=== PATIENT | female | born 1945 | race Caucasian/White ===

== ENCOUNTER → 2017-02-10 | Outpatient (CLI) | payer OTHER ==
[2016-12-18 09:06] VITALS: BP 164/69
[~2017-02-10] MED LIST: ALBU2.5V5 NEB; ASPI-482 PO; ASPI-630 PO; DABI150C PO; DEXT15DR5 EACHEYE; DILT180C29 PO; DILT240C66 PO; DOXY100T PO; FLUT12HF2 IH; FURO20TA3 PO; LEVO500T8 PO; LISI10TA2 PO; NAPR500T8 PO; OMEP20CA9 PO; OMEP20TA63 PO; PRED-220 PO; PRED20TA PO; SIMV20TA PO; oxygen
--- NOTE | 2017-02-10 08:28 | KCIC ---
Indication: Postmenopausal. The bone mineral density of the lumbar spine from L1 to L4 is 1.021 with a T score of -0.2. The bone mineral density of the left hip is 0.876 with a T score of -0.5. IMPRESSION: Normal bone mineral density of the lumbar spine and left hip. Electronically signed by: Yony Wright MD (02/10/2017 8:25 AM) [id number]
--- NOTE | 2017-02-10 08:56 | KCIC ---
Indication: Epigastric pain. Study is significantly limited due to patient body habitus. The pancreas and IVC were very poorly visualized. The liver does show diffuse increased echogenicity consistent with fatty infiltration. No discrete liver mass is identified. No definite gallstones are identified. No significant wall thickening or pericholecystic fluid is seen. No bile duct dilatation is identified. The right kidney is unremarkable. No ascites is detected. IMPRESSION: Limited study. There is fatty infiltration of the liver. No other significant abnormality is detected. Electronically signed by: Yony Wright MD (02/10/2017 8:52 AM) [id number]
== END | disposition home or self-care (01) ==
LOC: KCIC DEXA 07:29
PROVIDERS: ATTEND Family Medicine
DX: K76.0 Fatty (change of) liver, not elsewhere classified (principal); Z78.0 Asymptomatic menopausal state
CPT/HCPCS: 76705; 77080

== ENCOUNTER 2017-06-30 05:59 | Observation (INO) | payer OTHER ==
[2017-06-30] MEDS: IV RINGERS,LACTATED 1000ML 1,000 ML IV ×4 (06:43→12:25)
[2017-06-30] MEDS ORDERED: fentaNYL PF VIAL 100 MCG/2 ML VIAL IV ×8 (07:00→14:00)
[2017-06-30] MEDS ORDERED: PROCHLORPERAZINE 10 MG/2 ML VIAL. IV ×4 (07:00→14:00)
[2017-06-30] MEDS ORDERED: ONDANSETRON PF 4 MG/2 ML VIAL. IV ×2 (07:00)
[2017-06-30] MEDS ORDERED: BUPIVACAINE-EPI 0.25%-1:200000 50 ML VIAL. ×2 (07:11)
[2017-06-30] MEDS: VANCOMYCIN 1GM IVPB FOR OMNI 250 ML IV ×2 (07:13)
[2017-06-30] MEDS ORDERED: ONDANSETRON PF 4 MG/2 ML VIAL. ×2 (07:23)
[2017-06-30] MEDS ORDERED: PROPOFOL 20 ML IV ×2 (07:23)
[2017-06-30] MEDS ORDERED: fentaNYL PF VIAL 100 MCG/2 ML VIAL ×2 (07:23)
[2017-06-30] MEDS ORDERED: MIDAZOLAM HCL/PF 2 MG/2 ML VIAL. ×2 (07:23)
[2017-06-30] MEDS ORDERED: FAMOTIDINE 20 MG/2 ML VIAL ×2 (07:23)
[2017-06-30] MEDS ORDERED: SUCCINYLCHOLINE 200 MG/10 ML VIAL. ×2 (07:24)
[2017-06-30] MEDS: ALBUTEROL SULFATE 2.5 MG/3 ML NEBU. NEB ×2 (07:27)
[2017-06-30] MEDS ORDERED: HYDROCORTISONE SOD SUCC/PF 100 MG/2 ML VIAL. ×2 (07:43)
[2017-06-30] MEDS ORDERED: SEVOFLURANE 31 TO 60 MINUTES. IH ×2 (08:31)
[2017-06-30] MEDS: MORPHINE SULFATE 2 MG/ML DISP.SYRIN. IV ×6 (09:10→10:07)
[2017-06-30] MEDS ORDERED: DEXTROSE 50% 25 GM / 50ML DISP.SYRIN. IV ×2 (14:00)
[2017-06-30] MEDS ORDERED: diphenhydrAMINE 50 MG/ML VIAL IV ×2 (14:00)
[2017-06-30] MEDS ORDERED: CALCIUM CARBONATE 500 MG TAB.CHEW PO ×2 (14:00)
[2017-06-30] MEDS ORDERED: oxyCODONE/APAP 7.5/325 1 TAB TABLET PO ×2 (14:00)
[2017-06-30] MEDS ORDERED: MORPHINE SULFATE 10 MG/ML VIAL. IV ×2 (14:00)
[2017-06-30] MEDS ORDERED: ZOLPIDEM 5 MG TABLET. PO ×2 (14:00)
[2017-06-30] MEDS ORDERED: MORPHINE SULFATE 4 MG/ML DISP.SYRIN. IV ×4 (14:00)
[2017-06-30] MEDS ORDERED: oxyCODONE/APAP 5/325 1 TAB TABLET PO ×2 (14:00)
[2017-06-30] MEDS ORDERED: HYDROcodone/APAP 10/325 1 TAB TABLET PO ×2 (14:00)
[2017-06-30] MEDS ORDERED: MORPHINE SULFATE 2 MG/ML DISP.SYRIN. IV ×2 (14:00)
[2017-06-30] MEDS ORDERED: traMADol 50 MG TABLET PO ×2 (14:00)
[2017-06-30] MEDS ORDERED: 0.9 % SODIUM CHLORIDE 10 ML DISP.SYRIN. IV ×2 (14:00)
[2017-06-30] MEDS: traMADol 50 MG TABLET PO ×4 (16:38→20:47)
[2017-06-30] MEDS: KETOROLAC TROMETHAMINE 10 MG TABLET PO ×2 (18:00)
[2017-06-30] MEDS: MAGNESIUM HYDROXIDE 2,400 MG/30 ML ORAL.SUSP. PO ×2 (20:47)
[2017-06-30] MEDS: IV DEXTROSE 5 %-0.45 % NACL 1,000 ML IV ×4 (20:49→23:46)
[2017-07-01] MEDS: HYDROcodone/APAP 7.5/325MG 1 TAB TABLET PO ×2 (00:50)
[2017-07-01] MEDS: KETOROLAC TROMETHAMINE 10 MG TABLET PO ×4 (00:50→06:21)
[2017-07-01] MEDS: SENNOSIDES/DOCUSATE 8.6/50MG TABLET. PO ×2 (08:04)
[2017-07-01] MEDS ORDERED: BISACODYL 10 MG SUPP.RECT. PR ×2 (16:00)
== END 2017-07-01 11:05 | disposition home or self-care (01) ==
LOC: SURG 05:59 → 4 SOUTHWST 12:50
DX: S83.241A Other tear of medial meniscus, current injury, right knee, initial encounter (principal); M22.41 Chondromalacia patellae, right knee; I10 Essential (primary) hypertension; E78.5 Hyperlipidemia, unspecified; J44.9 Chronic obstructive pulmonary disease, unspecified; I48.91 Unspecified atrial fibrillation; G45.9 Transient cerebral ischemic attack, unspecified; W18.30XA Fall on same level, unspecified, initial encounter; Z87.891 Personal history of nicotine dependence; Y92.000 Kitchen of unspecified non-institutional (private) residence as the place of occurrence of the external cause; Y93.89 Activity, other specified; Y99.8 Other external cause status
CPT/HCPCS: 29880; 94640; 96374; 97116-GP; 97162-GP; 97165-GO; 97530-GP; G0378; G0379; G8978-CJ-GP; G8979-CJ-GP; G8980-CJ-GP; J0330; J1720; J2250; J2270; J2405; J2704; J3010; J7613; S0028

== ENCOUNTER → 2017-08-27 | Outpatient (CLI) | payer OTHER | END | disposition home or self-care (01) | LOC: ECHO 10:33 | DX: I27.20 Pulmonary hypertension, unspecified (principal); E66.9 Obesity, unspecified; R06.01 Orthopnea; R60.0 Localized edema | CPT/HCPCS: 93306 ==

== ENCOUNTER → 2017-12-16 | Outpatient (CLI) | payer OTHER | END | disposition home or self-care (01) | LOC: MRI 12:25 | DX: Z12.31 Encounter for screening mammogram for malignant neoplasm of breast (principal); M48.061 Spinal stenosis, lumbar region without neurogenic claudication; M51.36 Other intervertebral disc degeneration, lumbar region; R53.1 Weakness | CPT/HCPCS: 72148; 77067 ==

== ENCOUNTER → 2017-12-28 | Outpatient (CLI) | payer OTHER | END | disposition home or self-care (01) | LOC: MAMMO 10:50 | DX: R92.8 Other abnormal and inconclusive findings on diagnostic imaging of breast (principal) | CPT/HCPCS: 76641; 77065; G0279 ==

== ENCOUNTER → 2018-01-07 | Outpatient (CLI) | payer OTHER ==
[2017-11-05 11:00] VITALS: BP 136/86
[~2018-01-07] MED LIST changes: +APIX5TAB PO; +ASPI325T8 PO; +ASPI81TA50 PO; +CETI10TA22 PO; +DILT180C64 PO; +DIPHENHYDRAMINE SQ PRN; +DRON400T PO; +FLUT9.9S NS; +HYDR-965 PO; +LACT1CAP8 PO; +LEVO750T5 PO; +MULT-121 PO; +MULT1TAB52 PO; +NAPR-514 PO; +OMEP40CA5 PO; +PROAIR HFA8.5 GM INH; +TOTAL VOLUME SQ PRN; +tylenol arthritis PO
--- NOTE | 2018-01-12 16:09 | PATHOLOGY ---
[facility] Accession Number: [id number] . 01 Material submitted: . LT BREAST TISSUE . 01 Clinical history: . Left breast mass . 02 Diagnosis: Breast tissue, left breast mass needle biopsies: - Fibrocystic changes, focal, with the following components: - Stromal fibrosis. - Duct ectasia. - Cystic change. - Apocrine metaplasia. - Medial arterial calcification, focal. . (JPM:zo; 01/12/2018) QMS/01/12/2018 . 02 Comment: The needle biopsies of the left breast mass primarily reveal fibroadipose tissue showing focal recent hemorrhage. There are a few small foci of fibrocystic change. There is no evidence of malignancy. Correlate with clinical and radiographic findings. (JPM:zo;01/12/2018) . 02 Electronically signed: . Shree Alegria MD, Pathologist NPI- [id number] . 01 Gross description: . The specimen is received in formalin, labeled "Tarah Gregorio, left breast". Received are multiple needle cores of yellow-santana fibrofatty tissue measuring 2.5 x 2.4 x 0.3 cm in aggregate dimensions. The specimen is filtered and entirely submitted in cassettes A1 through A3. The cold ischemic time is 5 minutes. The total formalin fixation time is 29 hours and 40 minutes. (CAA; 01/08/2018) QAC/QAC . 02 Pathologist provided ICD-10: N60.12, N60.32, N60.42, N60.82 . 02 CPT . 340706 Performed at: [facility] [address], [place], [place] [id number] MD Kurt Muller MD Phone: [phone] Performed at: 02 [facility] [address] [place], [place] [id number] MD Shree Alegria MD Phone: [phone]
--- NOTE | 2018-01-18 11:32 | RAD ---
Ultrasound-guided left breast biopsy, 01/07/2018: History: Suspicious breast nodule Previous studies demonstrated a suspicious nodule in the 11:00 periareolar region. Under local anesthesia, aseptic conditions and sonographic guidance the SnipdC biopsy instrument was passed into the posterior aspect of this nodule via a lateral approach. Multiple 12-gauge vacuum-assisted core samples were obtained and sent to pathology for evaluation. A biopsy marker was deposited at the biopsy site. The biopsy instrument was then removed and hemostasis obtained. A moderate-sized hematoma developed at the biopsy site. Two-view postprocedural digital mammograms were obtained to document position of the biopsy marker. It lies along the the anterolateral lateral margin of the hematoma. The calcifications present within the biopsied nodule on the prebiopsy mammograms are not evident on the postbiopsy images, although the hematoma does partially obscure this region. Following stabilization of the hematoma the patient left the department in good condition. Note: The subsequent pathology report indicated fibrocystic change without evidence of malignancy. Follow-up left mammography in 4-6 months is suggested to confirm that the partially calcified lesion was adequately sampled.
--- NOTE | 2018-01-18 13:06 | RAD ---
Ultrasound-guided left breast biopsy, 01/07/2018: History: Suspicious breast nodule Previous studies demonstrated a suspicious nodule in the 11:00 periareolar region. Under local anesthesia, aseptic conditions and sonographic guidance the General AssemblyC biopsy instrument was passed into the posterior aspect of this nodule via a lateral approach. Multiple 12-gauge vacuum-assisted core samples were obtained and sent to pathology for evaluation. A biopsy marker was deposited at the biopsy site. The biopsy instrument was then removed and hemostasis obtained. A moderate-sized hematoma developed at the biopsy site. Two-view postprocedural digital mammograms were obtained to document position of the biopsy marker. It lies along the the anterolateral lateral margin of the hematoma. The calcifications present within the biopsied nodule on the prebiopsy mammograms are not evident on the postbiopsy images, although the hematoma does partially obscure this region. Following stabilization of the hematoma the patient left the department in good condition. Note: The subsequent pathology report indicated fibrocystic change without evidence of malignancy. Follow-up left mammography in 4-6 months is suggested to confirm that the partially calcified lesion was adequately sampled. LIZETTE
== END | disposition home or self-care (01) ==
LOC: US 12:18
PROVIDERS: ATTEND Family Medicine
DX: N60.12 Diffuse cystic mastopathy of left breast (principal); N60.42 Mammary duct ectasia of left breast; E78.00 Pure hypercholesterolemia, unspecified; I48.91 Unspecified atrial fibrillation; I10 Essential (primary) hypertension; J44.9 Chronic obstructive pulmonary disease, unspecified; K21.9 Gastro-esophageal reflux disease without esophagitis; F41.9 Anxiety disorder, unspecified; F17.210 Nicotine dependence, cigarettes, uncomplicated; Z90.710 Acquired absence of both cervix and uterus; Z98.42 Cataract extraction status, left eye; Z98.41 Cataract extraction status, right eye; Z86.73 Personal history of transient ischemic attack (TIA), and cerebral infarction without residual deficits; Z98.51 Tubal ligation status; Z87.39 Personal history of other diseases of the musculoskeletal system and connective tissue
CPT/HCPCS: 19085; 76942; 77065; 88305; C1713

== ENCOUNTER → 2018-01-27 | Outpatient (CLI) | payer OTHER ==
[2017-11-05 11:00] VITALS: BP 136/86
[~2018-01-27] MED LIST changes: -DIPHENHYDRAMINE SQ PRN; +POTA10TA12 PO; -TOTAL VOLUME SQ PRN
--- NOTE | 2018-01-27 21:59 | PAIN ---
DATE OF SERVICE: 01/27/2018 INITIAL CONSULTATION FOR PAIN CLINIC CHIEF COMPLAINT: Low back and right greater than left lower extremity pain. HISTORY OF PRESENT ILLNESS: This is a 72-year-old female who presents with history of pain in the low back, right lower extremity, status post a fall. She fell in her kitchen about 7 months ago, landed flat on her back and her hips, a little more on the right, but feels that she went straight down flat on her back with some significant pain in the low back, which has been not improving over time. The patient reports it radiates into her posterior gluteus, posterior thigh, lateral thigh, anterior right thigh, right medial knee, right lower leg and into the calf on her right leg as well in the anterior and posterior aspect. The patient reports it is a constant, sharp, stabbing, shooting, cramping, radiating, worse with activity, standing, walking, changing positions. She has had significant increase in fatigability with her right leg compared to the left with some pain in the left leg as well, mostly in the gluteus and anterior thigh on the left. The patient reports that she has been doing some stretching exercises. She belongs to the [facility] and she goes there 3 times a week and is still going despite the pain. She is unable to do as many exercises as she would like to, but she is using the pool and doing some therapy with that on her own and with some water aerobics classes at the [facility], again 3 times a week and is still doing this. The patient is doing stretching at home as well. The patient reports it awakens her from sleep about 2-3 times at night, does not affect her bowel or bladder control, but does affect her ability to walk, especially with the right leg with pain radiating into the leg causing some significant fatigability with walking. The patient did have MRI scan showing some significant stenosis at the L4-L5 space with combined moderate to severe central spinal canal stenosis, moderate ligamentum hypertrophy bilaterally with moderate generalized disk bulge, L5-S1 shows moderate generalized disk bulge eccentric to the right with mild right neural foraminal stenosis as well. The patient reports a disability rating from 0-10, 10 being the worst, is a 6 with family and home responsibilities, recreation, social activity, sexual behavior, occupation, self-care and life support activities. The patient is taking naproxen as well as Tylenol Arthritis formula and ibuprofen, all of which help, but only by about 25%. The patient has no loss of motor function, but again significant fatigability, especially with the right leg with walking or standing, better with sitting or lying down, but again awakening her from sleep at night. PAST MEDICAL HISTORY: Significant for atrial fibrillation; hypertension; COPD, on home oxygen; hearing loss; cataracts; dizziness; arthritis; TIA x 2. PREVIOUS SURGERIES: Include cataract extraction bilaterally in 2010 and hysterectomy in 1999. CURRENT MEDICATIONS: Include probiotics, multivitamins, albuterol inhaler, omeprazole, Lasix, potassium, and fluticasone spray nasal. FAMILY HISTORY: Significant for hypertension, kidney disease and cancer. SOCIAL HISTORY: The patient does not drink alcohol, does not smoke, quit many years ago, is , lives with her , has one child living at home and lives locally in [place], [place]. Reports, she is currently retired, but stays very active on her own, especially going to the [employer]. REVIEW OF SYSTEMS: The patient's review of systems is positive for those items mentioned in history of present illness. All systems reviewed and otherwise negative. It is complete, full and well documented on the patient's chart. PHYSICAL EXAMINATION: VITAL SIGNS: The patient's blood pressure is 178/84, pulse 61, respirations 18, temperature 98.7 degrees Fahrenheit, height is 5 feet, weight is 236 pounds. GENERAL: The patient is awake, alert, oriented, appropriate, very pleasant demeanor. HEENT: Head shows normocephalic, atraumatic. Extraocular movements are intact and symmetrical. Oral cavity: Mucous membranes are moist and pink. Dentition is intact. NECK: Shows anterior throat supple without palpable lymphadenopathy noted. Swallow reflex is symmetrical. CHEST: Shows normal with inspection. Breath sounds are clear to auscultation bilaterally. HEART: Shows S1, S2 clear. No murmurs auscultated. ABDOMEN: Soft, nontender, nondistended. No palpable organomegaly is noted. No rebound or guarding demonstrated. BACK: Shows spine grossly in the midline. Slightly exaggerated thoracic kyphosis, some minor flattening of lumbar lordotic curvature. Lumbar paraspinous muscle shows symmetrical on inspection, on palpation shows some mild tenderness, but only diffusely without radiation, no atrophy or hypertrophy and this is throughout the upper, middle and lower distribution of the paraspinous muscles bilaterally. The patient shows no tenderness over the spinous processes, sacrum or sacroiliac regions. EXTREMITIES: The patient's lower extremities show deep tendon reflexes at 1+ in the patellar and tendo calcaneus tendons and are equal. Motor exam is strong with approximately 4 on a scale of 5, but symmetrical dorsiflexion, extension, quadriceps and hamstring flexion. Peripheral pulses are 1+ posterior tibia. No peripheral edema is noted. No clubbing or cyanosis. Lower extremities are warm and dry to touch, equal in color and appearance. The patient's straight leg raise is very mildly positive on the right at about 45 degrees, but decreased quickly with knee flexion. The left side is negative. Gaenslen's and Logan's maneuvers are negative bilaterally. The patient is able to stand, has difficulty trying to stand on her toes as she loses balance putting all of her weight on her right foot. She is walking with a slight shuffling gait, appears to favor the right lower extremity very slightly, but not using any assistive devices such as canes or walkers to ambulate. SKIN: Shows warm and dry, good turgor. No sores, rashes, or bruises. IMPRESSION: 1. This is a 72-year-old female with approximately 7-month history of increasing pain in the low back, bilateral lower extremities, worse on the right than the left with radicular pattern in the L4 and L5 dermatomal distribution on the right, status post water aerobics as well as stretching and strengthening exercises at the [facility] 3 times weekly without significant improvement. 2. MRI scan of lumbar spine as noted. 3. Chronic obstructive pulmonary disease. 4. Hypertension. 5. Atrial fibrillation. 6. Arthritis. PLAN: Options were discussed with the patient including conservative medical management, continued physical therapies, interventional techniques and she would like to pursue interventional techniques. We discussed a lumbar epidural steroid injection using descriptions as well as anatomical models to describe the procedure. The patient will wait for preauthorization with her insurance provider and once this is approved, we will have her return for lumbar epidural steroid injection at that time. The patient will continue with her exercises in the meantime and water aerobics as she is doing 3 times a week at the [facility] and we will have her return once preauthorization is obtained and we will plan on lumbar epidural steroid injection at that time. TRACE JONES MD DR: TIM/lucille JOB#: [id number] / [id number] CHESTER Ashley MD
== END | disposition home or self-care (01) ==
LOC: PNCL 10:40
PROVIDERS: ATTEND Anesthesiology
DX: I11.0 Hypertensive heart disease with heart failure (principal); I50.32 Chronic diastolic (congestive) heart failure; J44.9 Chronic obstructive pulmonary disease, unspecified; M19.90 Unspecified osteoarthritis, unspecified site; M79.605 Pain in left leg; M54.5 Low back pain; I48.91 Unspecified atrial fibrillation; E11.9 Type 2 diabetes mellitus without complications; E78.00 Pure hypercholesterolemia, unspecified; K21.9 Gastro-esophageal reflux disease without esophagitis; Z87.891 Personal history of nicotine dependence; Z99.81 Dependence on supplemental oxygen
CPT/HCPCS: G0463

== ENCOUNTER → 2018-02-11 | Outpatient (CLI) | payer OTHER ==
[2017-11-05 11:00] VITALS: BP 136/86
[~2018-02-11] MED LIST changes: +IOHEXOL 180 MG/ML 10 ML VIAL. ONE; +methylPREDNISolone ACETATE 40 MG/ML VIAL. ONE; +methylPREDNISolone ACETATE 80 MG/ML VIAL. ONE
--- NOTE | 2018-02-11 13:22 | PAIN ---
DATE OF SERVICE: 02/11/2018 DIAGNOSES: Lumbar radiculopathy with lumbar spinal stenosis, lumbar degenerative disk disease. HISTORY OF PRESENT ILLNESS: The patient is a 72-year-old female who returns for followup status post initial evaluation and preauthorization. She returns today wishing to proceed, still has pain in the low back and into the right greater than left lower extremity. The patient reports no new motor or sensory deficits. She rates her pain as a 7 on a scale of 10 at its worst, 6 on average and a 5 at its least; the patient reports it is a 6 today. The patient reports it as aching, stabbing, pain being more constant in the low back and lower extremities as previously. The patient reports it awakens her from sleep, but about every 6 hours. Otherwise, she can reposition and get back to sleep fairly well. The patient reports no new motor or sensory deficits, no new bowel or bladder incontinence or other complaints. PHYSICAL EXAMINATION: VITAL SIGNS: The patient's blood pressure 186/107, pulse is 77, respirations 18, temperature 98.6 degrees Fahrenheit. Height 5 feet, weight is 236 pounds. GENERAL: The patient is awake, alert, oriented, appropriate, very pleasant demeanor. HEENT: Head is normocephalic, atraumatic. Extraocular movements are intact and symmetrical. Oral cavity, mucous membranes are moist and pink. Dentition is intact. NECK: Shows anterior throat supple without palpable lymphadenopathy noted. Swallow reflex is symmetrical. CHEST: Shows normal with inspection. Breath sounds are clear to auscultation bilaterally. HEART: Shows S1, S2 clear. No murmurs auscultated. ABDOMEN: Soft, nontender, nondistended. No palpable organomegaly noted. No rebound or guarding demonstrated. BACK: Shows spine grossly in the midline, normal appearing thoracic kyphosis, some minor flattening of lumbar lordotic curvature. Lumbar paraspinous muscles show symmetrical on inspection, on palpation there is some moderate tenderness in the lower lumbar distribution, but only diffusely without radiation. The patient has good rotational motion both laterally as well as extension and flexion of lumbar spine without difficulty. No tenderness over the sacrum or sacroiliac regions. EXTREMITIES: Lower extremities show deep tendon reflexes 1+ in the patellar and tendo calcaneus tendons are equal. Motor exam is 5/5 with dorsiflexion and extension equal. Peripheral pulses are 1+ posterior tibia. No peripheral edema is noted. Options were discussed with the patient. The patient's old chart was reviewed as her current medication regimen updated. Current review of systems updated today as well. We will proceed with a lumbar epidural steroid injection today with fluoroscopic guidance. Risks were again discussed including, but not limited to bleeding, infection, possibility of epidural hematoma, subsequent neurologic compromise, dural puncture headaches, spinal cord and/or nerve damage, side effects of steroid medication and poor results regarding pain control. The patient understands and wished to proceed. The patient will return to clinic in approximately 2 weeks for followup, was counseled on return appointment, activity level, and side effects to be aware of. DIAGNOSES: Lumbar radiculopathy with lumbar degenerative disk disease, lumbar spinal stenosis. PROCEDURE: Lumbar epidural steroid injection, translaminar approach at L4-L5 level using C-arm fluoroscopic guidance under sterile prep and drape using local anesthetic. MEDICATION INJECTED: A total of 120 mg Depo-Medrol plus 10 mL of preservative-free normal saline and 2 mL of Isovue for contrast. CONDITION AT DISCHARGE: Stable. The patient tolerated the procedure well, had no complications. TRACE JONES MD DR: TIM/lucille JOB#: [id number] / [id number]
== END | disposition home or self-care (01) ==
LOC: PNCL 09:00
PROVIDERS: ATTEND Anesthesiology
DX: M51.16 Intervertebral disc disorders with radiculopathy, lumbar region (principal); M48.061 Spinal stenosis, lumbar region without neurogenic claudication; Z88.0 Allergy status to penicillin; Z88.2 Allergy status to sulfonamides; Z88.4 Allergy status to anesthetic agent; Z88.8 Allergy status to other drugs, medicaments and biological substances
CPT/HCPCS: 62323; J1030; J1040; Q9965

== ENCOUNTER → 2018-03-10 | Outpatient (CLI) | payer OTHER ==
[2017-11-05 11:00] VITALS: BP 136/86
[~2018-03-10] MED LIST changes: -IOHEXOL 180 MG/ML 10 ML VIAL. ONE; -methylPREDNISolone ACETATE 40 MG/ML VIAL. ONE; -methylPREDNISolone ACETATE 80 MG/ML VIAL. ONE
--- NOTE | 2018-03-10 18:10 | PAIN ---
DATE OF SERVICE: 03/10/2018 PROGRESS NOTE FOR PAIN CLINIC DIAGNOSES: Lumbar radiculopathy with lumbar degenerative disk disease, lumbar spinal stenosis. HISTORY OF PRESENT ILLNESS: The patient is a 72-year-old female who returns for followup status post lumbar epidural steroid injection x 1. The patient reports about 75% improvement after the first injection, doing quite well with significant decrease in pain with activities, household activity, walking greater distances, sleeping better at night. The patient reports she is increasing her household activities as well for about the first 3 weeks or so following the injection. The patient reports now the pain is beginning to return in the low back, mainly in the right side greater than the left; in the right lower extremity, mostly in the posterior lateral thigh, lateral anterior thigh, medial thigh, medial lower leg when it is radiating into the right lower extremity, some in the posterior gluteus and thigh on the left side as well, but much worse on the right. The patient reports it is an 8 on a scale of 10 at its worst, 6 on average, 5 at its least and is a 6 today. The patient reports it is aching, sharp, shooting, tingling, on and off in intensity. The patient reports she has recently moved to a new home and has put a lot of stress on her back as well as emotional stress too. The patient reports no new motor or sensory deficits, no new bowel or bladder incontinence or other complaints. She did fairly well and is quite pleased with the progress, the pain beginning to return. No new motor or sensory deficits, no bowel or bladder incontinence. PHYSICAL EXAMINATION: VITAL SIGNS: The patient's blood pressure 120/76, pulse 77, respirations 16, temperature 98.9 degrees Fahrenheit, weight is 239 pounds. GENERAL: The patient is awake, alert, oriented, appropriate, very pleasant demeanor. HEENT: Head is normocephalic, atraumatic. Extraocular movements intact and symmetrical. Oral cavity: Mucous membranes moist and pink. Dentition is intact. NECK: Shows anterior throat supple without palpable lymphadenopathy noted. Swallow reflex symmetrical. CHEST: Shows normal with inspection. Breath sounds clear to auscultation bilaterally. HEART: Shows S1, S2 clear. No murmurs auscultated. ABDOMEN: Obese, soft, nontender, nondistended. No palpable organomegaly is noted. No rebound or guarding demonstrated. BACK: Shows spine grossly in the midline. Normal appearing thoracic kyphosis, slightly exaggerated and lumbar lordotic curvature slightly flattened. Lumbar paraspinous muscle shows symmetrical on inspection, on palpation shows some mild to moderate tenderness in the low lumbar distribution only, but without radiation. No tenderness over the sacrum or sacroiliac regions or over the spinous processes. The patient has good rotational motion of lumbar spine, both laterally as well as extension and flexion without significant difficulty. EXTREMITIES: The patient's lower extremities show deep tendon reflexes at 1+ in the patellar and tendo calcaneus tendons. Motor exam is strong with 5/5 dorsiflexion, extension, quadriceps and hamstring flexion. Peripheral pulses are 1+ posterior tibial. No peripheral edema is noted bilaterally. The patient's straight leg raise noted to be mildly positive on the right about 45 degrees, decreased with knee flexion, left side is negative. Gaenslen's and Logan's maneuvers are negative bilaterally. Options were discussed with the patient. The patient's old chart was reviewed as her current medication regimen updated. Current review of systems updated today as well. We will preauthorize the patient for a second lumbar epidural steroid injection. She did very well with the first now with pain returning in L4-L5 dermatomal distribution on the right lower extremity, primarily again 75% improved for about 3 weeks after the first injection. The patient was encouraged to continue stretching and strengthening exercises that she has been doing. Also, walking daily if possible and to avoid lifting heavy items. She has been moving some furniture around her home. The patient understands and agrees and will follow up in approximately 2 weeks. We will plan on second lumbar epidural steroid injection at that time. TRACE JONES MD DR: TIM/lucille JOB#: [id number] / [id number]
== END | disposition home or self-care (01) ==
LOC: PNCL 09:51
PROVIDERS: ATTEND Anesthesiology
DX: M51.16 Intervertebral disc disorders with radiculopathy, lumbar region (principal); M48.061 Spinal stenosis, lumbar region without neurogenic claudication
CPT/HCPCS: G0463

== ENCOUNTER → 2018-03-24 | Outpatient (CLI) | payer OTHER ==
[2017-11-05 11:00] VITALS: BP 136/86
[~2018-03-24] MED LIST changes: +IOHEXOL 180 MG/ML 10 ML VIAL. ONE; +LIDOCAINE 1% PF 2 ML VIAL. ONE; +methylPREDNISolone ACETATE 40 MG/ML VIAL. ONE; +methylPREDNISolone ACETATE 80 MG/ML VIAL. ONE
--- NOTE | 2018-03-24 21:45 | PAIN ---
DATE OF SERVICE: 03/24/2018 PROGRESS NOTE FOR PAIN CLINIC DIAGNOSIS: Lumbar radiculopathy with lumbar degenerative disk disease and lumbar spinal stenosis. HISTORY OF PRESENT ILLNESS: The patient is a 72-year-old female who returns for followup status post lumbar epidural steroid injection x 1. The patient reports about 75% improvement for about 2 weeks following the injection in her low back and bilateral lower extremities. The pain began to return but not quite to baseline. The patient reports it is across the low back and the right, greater than left lower extremity, mostly in the posterior gluteus, posterior thigh, lateral thigh, lateral anterior thigh, medial thigh, medial knees and again worse on the right side with walking, standing, change in position. Initially, the patient was walking greater distances, able to do household activities with greater ease and comfort, feeding better at night as it awakens her from sleep occasionally but not every night at this time. The patient reports it is a cramping pain that is shooting, becoming more constant in the low back, bilateral lower extremities, again worse on the right side with weightbearing, standing, walking, better with sitting or lying down. The patient reports her pain is worse, a 6 on scale of 10, average 4 normally and at least is a 4 and reports is a 4 today. The patient reports no new motor or sensory deficits and no new bowel or bladder incontinence or other complaints. PHYSICAL EXAMINATION: VITAL SIGNS: The patient's blood pressure is 192/88, pulse 69, respirations 16 and temperature is 98.2 degrees Fahrenheit. Weight is 241 pounds. GENERAL: The patient is awake, alert, oriented, appropriate and very pleasant demeanor. HEENT: Head shows normocephalic and atraumatic. Extraocular movements are intact and symmetrical. Oral cavity, mucous membranes are moist and pink. Dentition is intact. NECK: Shows anterior throat supple, without palpable lymphadenopathy noted. Swallow reflex is symmetrical. CHEST: Shows normal on inspection. Breath sounds clear to auscultation bilaterally. HEART: Shows S1 and S2 clear. No murmurs auscultated. ABDOMEN: Soft, nontender and nondistended. No palpable organomegaly is noted. No rebound or guarding demonstrated. BACK: Shows spine grossly in the midline. Normal appearing thoracic kyphosis and some slight flattening of the left lumbar lordotic curvature. Lumbar paraspinous musculature shows symmetrical on inspection, on palpation shows some moderate tenderness diffusely but only diffusely and only in the low lumbar distribution without radiation. EXTREMITIES: The patient's lower extremities show deep tendon reflexes at 1+ in the patellar and tendo-calcaneus tendons are equal. Motor exam is strong with 5/5 dorsiflexion, extension, quadriceps and hamstring flexion and symmetrical. Peripheral pulses are 1+ posterior tibia. No peripheral edema is noted bilaterally in the lower extremities. Options were discussed with the patient. The patient's old chart was reviewed as well as her current medication regimen updated. Current review of systems updated today as well. We will proceed with a second in the series of lumbar epidural steroid injection today with fluoroscopic guidance. Risks were again discussed including, but not limited to bleeding, infection, possibility of epidural hematoma and subsequent neurological compromise, dural puncture, headaches, spinal cord and/or nerve damage, side effects of steroid medication and poor results regarding pain control. The patient understands and wished to proceed. The patient will return to the clinic in approximately 2 weeks for followup, was counseled on return appointment, activity level and side effects to be aware of. DIAGNOSES: Lumbar radiculopathy with lumbar degenerative disk disease and lumbar spinal stenosis. PROCEDURE: Lumbar epidural steroid injection, translaminar approach using C-arm fluoroscopic guidance under sterile prep and drape using local anesthetic. MEDICATION INJECTED: A total of 120 mg Depo-Medrol plus 10 mL of preservative-free normal saline and 2 mL of Isovue for contrast. CONDITION AT DISCHARGE: Stable. The patient tolerated the procedure well and had no complications. TRACE JONES MD DR: TIM/lucille JOB#: [id number] / [id number]
== END | disposition home or self-care (01) ==
LOC: PNCL 10:59
PROVIDERS: ATTEND Anesthesiology
DX: M51.16 Intervertebral disc disorders with radiculopathy, lumbar region (principal); M48.061 Spinal stenosis, lumbar region without neurogenic claudication; Z88.4 Allergy status to anesthetic agent; Z88.0 Allergy status to penicillin; Z88.2 Allergy status to sulfonamides; Z88.6 Allergy status to analgesic agent; Z88.8 Allergy status to other drugs, medicaments and biological substances
CPT/HCPCS: 62323; J1030; J1040; Q9965

== ENCOUNTER → 2019-02-28 | Outpatient (CLI) | payer OTHER ==
[2017-11-05 11:00] VITALS: BP 136/86
[~2019-02-28] MED LIST changes: +ALBU2.5V8 INH; +HYDR-3165 PO; -HYDR-965 PO; -IOHEXOL 180 MG/ML 10 ML VIAL. ONE; -LIDOCAINE 1% PF 2 ML VIAL. ONE; +OMEP20CA10 PO; -OMEP20CA9 PO; -PROAIR HFA8.5 GM INH; -methylPREDNISolone ACETATE 40 MG/ML VIAL. ONE; -methylPREDNISolone ACETATE 80 MG/ML VIAL. ONE
--- NOTE | 2019-02-28 18:00 | KCIC ---
MRI of the lumbar spine without contrast 02/28/2019 CLINICAL HISTORY: Low back pain. TECHNIQUE: Unenhanced T1-weighted and T2-weighted sagittal and axial and inversion recovery sagittal images of the lumbar spine were obtained. FINDINGS: Comparison study is dated 12/16/2017. Mild S-shaped curvature of the thoracolumbar spine is seen. Mild anterolisthesis of L4 in relation to L5 is noted. Degenerative signal changes are seen involving all of the disks of the lumbar spine. Degenerative signal changes are seen within the marrow surrounding these discs. Loss of height of the L1-2, L2-3 and L5-S1 discs is noted. The conus medullaris is normal morphology, position, and signal characteristics. At the L1-2 disc space there is a mild to moderate generalized disc bulge. This is eccentric to the left. Degenerative changes are seen involving the facet joints bilaterally. There is mild ligamentum flavum hypertrophy bilaterally. There are small facet joint effusions. These findings when combined do not result in significant central spinal canal stenosis. Mild left neural foraminal stenosis is seen. The right neural foramen is patent. At the L2-3 and L3-4 disc spaces there are minimal to mild generalized disc bulges. Degenerative changes are seen involving the facet joints bilaterally. There is mild to moderate ligamentum flavum hypertrophy bilaterally. These findings when combined do not result in significant central spinal canal or neural foraminal stenosis. At the L4-5 disc space there is a mild to moderate generalized disc bulge. Degenerative changes are seen involving the facet joints bilaterally. There is moderate ligamentum flavum hypertrophy bilaterally. Small to moderate-sized facet joint effusions are seen. These findings when combined result in moderate to severe central spinal canal stenosis. Mild bilateral neural foraminal stenosis is seen At the L5-S1 disc space there is a mild to moderate generalized disc bulge. This is eccentric to the right. Degenerative changes are seen involving the facet joints bilaterally. These findings when combined do not result in significant central spinal canal stenosis. Mild right neural foraminal stenosis is seen. The degenerative changes have progressed slightly since the previous study. IMPRESSION: The changes of degenerative disc disease are seen throughout the lumbar spine. These findings result in moderate to severe central spinal canal stenosis at L4-5. Mild left neural foraminal stenosis is seen at L1-2. Mild bilateral neural foraminal stenosis is seen at L4-5. Mild right neural foraminal stenosis is seen at L5-S1. Electronically signed by: Geronimo Antony MD (02/28/2019 5:57 PM) [facility]
== END | disposition home or self-care (01) ==
LOC: KCIC MRI 11:29
PROVIDERS: ATTEND Family Medicine
DX: M48.061 Spinal stenosis, lumbar region without neurogenic claudication (principal); M51.36 Other intervertebral disc degeneration, lumbar region; R20.0 Anesthesia of skin
CPT/HCPCS: 72148

== ENCOUNTER → 2019-03-28 | Outpatient (CLI) | payer OTHER ==
[2017-11-05 11:00] VITALS: BP 136/86
[~2019-03-28] MED LIST changes: +OMEP40CA45 PO; -OMEP40CA5 PO
--- NOTE | 2019-03-28 12:39 | CARD ---
MR#: [id number] Date of Study: 03/28/2019 Ordering Physician: MO KRUEGER, Referring Physician: MO KRUEGER, Tech: Jolie Norris APPROVED REPORT EXAM: Two-dimensional and M-mode echocardiogram with Doppler and color Doppler. Other Information Quality : AverageHR: 60bpm INDICATION Atrial Fibrillation 2D DIMENSIONS RVDd3.5 (2.9-3.5cm)Left Atrium(2D)4.1 (1.6-4.0cm) IVSd1.0 (0.7-1.1cm)Aortic Root(2D)2.9 (2.0-3.7cm) LVDd5.5 (3.9-5.9cm)LVOT Diameter2.3 (1.8-2.4cm) PWd0.8 (0.7-1.1cm)LVDs2.9 (2.5-4.0cm) FS (%) 48.1 %SV117.3 ml LVEF(%)79.0 (>50%) Aortic Valve AoV Peak Demarcus.154.8cm/sAoV VTI33.9cm AO Peak GR.9.6mmHgLVOT Peak Demarcus.118.5cm/s LVOT VTI 27.18cmAO Mean GR.6mmHg SLADE (VMAX)2.45ti3IQY (VTI)3.31cm2 Mitral Valve MV E Uadgavou48.5cm/sMV DECEL [id number] MV A Zpxyzxfq677.1cm/sMV WQP72nr E/A Ratio0.9MVA (PHT)3.25cm2 TDI E/Lateral E'10.5E/Medial E'21.5 Pulmonary Valve PV Peak Tyhccesd35.9cm/sPV Peak Grad.3mmHg Tricuspid Valve RAP [id number] Pulmonary Vein S1 Lldierjj47.6cm/sD2 Tibisvmm52.4cm/s PVa [id number] LEFT VENTRICLE The left ventricle is normal size. There is normal left ventricular wall thickness. The left ventricu lar systolic function is normal. The Ejection Fraction is 60-65%. There is normal LV segmental wall m otion. Transmitral Doppler flow pattern is Grade I-abnormal relaxation pattern. RIGHT VENTRICLE The right ventricle is normal size. There is normal right ventricular wall thickness. The right ventr icular systolic function is normal. ATRIA The left atrium is mildly dilated. The right atrium size is normal. The interatrial septum is intact with no evidence for an atrial septal defect or patent foramen ovale as noted on 2-D or Doppler imagi ng. AORTIC VALVE The aortic valve is thickened but opens well. Doppler and Color Flow revealed no significant aortic r egurgitation. There is no significant aortic valvular stenosis. MITRAL VALVE Mitral annular calcification is mild. The mitral valve is thickened but opens well. There is no evide nce of mitral valve prolapse. There is no mitral valve stenosis. Doppler and Color-flow revealed trac e to mild mitral regurgitation. TRICUSPID VALVE The tricuspid valve is normal in structure and function. Doppler and Color Flow revealed trace tricus pid regurgitation. There is no tricuspid valve stenosis. PULMONIC VALVE The pulmonic valve is not well visualized. Doppler and Color Flow revealed mild pulmonic valvular reg urgitation. GREAT VESSELS The aortic root is normal in size. The ascending aorta is normal in size. The IVC is normal in size a nd collapses >50% with inspiration. PERICARDIAL EFFUSION There is no pleural effusion. There is no evidence of significant pericardial effusion. Critical Notification Critical Value: No <Conclusion> The left ventricular systolic function is normal. The Ejection Fraction is 60-65%. There is normal LV segmental wall motion. Transmitral Doppler flow pattern is Grade I-abnormal relaxation pattern. Trace to mild mitral regurgitation. Trace tricuspid regurgitation. There is no evidence of significant pericardial effusion. Signed by : Herber Cisneros, Electronically Approved : 03/28/2019 12:39:19
== END | disposition home or self-care (01) ==
LOC: ECHO 10:51
PROVIDERS: ATTEND Internal Medicine Cardiovascular Disease
DX: I08.8 Other rheumatic multiple valve diseases (principal); I48.91 Unspecified atrial fibrillation
CPT/HCPCS: 93306

== ENCOUNTER 2019-05-29 10:29 | Emergency (ER) | payer OTHER ==
[~2019-05-29] VITALS: Ht 157.5 cm; Wt 108.4 kg
[~2019-05-29 10:29] MED LIST changes: -CETI10TA22 PO; +CETI10TA24 PO; +FLEC100T PO; +FURO-69 PO; +METO100T5 PO; -OMEP20CA10 PO; +OMEP20CA16 PO; +PREG150C PO
[2019-05-29 10:38] VITALS: BP 154/75
--- NOTE | 2019-05-29 10:42 | PHYS DOC ---
Past Medical History Past Medical History: A-Fib, Arthritis, COPD, High Cholesterol, Hypertension Past Surgical History: Hysterectomy, Tubal ligation Smoking: Quit Greater Than 1 Year Alcohol Use: Rarely Drug Use: None Adult General Chief Complaint Chief Complaint: SHORTNESS OF BREATH HPI HPI 73-year-old female presents with 2 day history of URI type symptoms including nasal congestion, headache, body aches, and productive cough. Patient reports she normally wears oxygen at home at night. Patient also reports some posttussive vomiting last night. Denies known sick contacts. Denies trauma. Review of Systems Review of Systems Constitutional: Reports subjective fever/chills and body aches Eyes: Denies redness or eye pain HENT: Reports nasal congestion; denies sore throat Respiratory: Reports cough and shortness of breath Cardiovascular: Denies chest pain or palpitations GI: Denies abdominal pain, nausea, or vomiting : Denies dysuria or hematuria Musculoskeletal: Denies back pain or joint pain Integument: Denies rash or skin lesions Neurologic: Denies headache, focal weakness or sensory changes Complete systems were reviewed and found to be within normal limits, except as documented in this note. Current Medications Current Medications Current Medications Medications (Trade) Dose Ordered Sig/Arabella Start Time Stop Time Status Last Admin Dose Admin Acetaminophen/ Butalbital/ Caffeine (Fioricet) 2 tab 1X ONCE 05/29/19 11:30 05/29/19 11:31 DC 05/29/19 11:34 2 TAB Albuterol/ Ipratropium (Duoneb) 3 ml 1X ONCE 05/29/19 10:45 05/29/19 10:46 DC 05/29/19 10:42 3 ML Ceftriaxone Sodium (Rocephin) 1 gm 1X ONCE 05/29/19 12:15 05/29/19 12:16 DC 05/29/19 12:09 1 GM Dexamethasone Sodium Phosphate (Decadron) 10 mg 1X ONCE 05/29/19 10:45 05/29/19 10:46 DC 05/29/19 11:01 10 MG Ketorolac Tromethamine (Toradol 15mg Vial) 10 mg 1X ONCE 05/29/19 11:00 05/29/19 11:01 DC 05/29/19 11:00 10 MG Allergies Allergies Allergies Coded Allergies Type Severity Reaction Last Updated Verified Anesthetics - Amide Type Allergy Intermediate broke out with hives - (all [place] es) 06/30/17 Yes Anesthetics - Reny Type- Parabens Allergy Intermediate 06/30/17 Yes Penicillins Allergy Intermediate RASH 06/30/17 Yes Sulfa (Sulfonamide Antibiotics) Allergy Intermediate RASH 06/30/17 Yes apixaban Allergy Intermediate POSSIBLE RASH (MAY ALSO BE FROM DRONEDARONE) 04/21/19 Yes dabigatran etexilate Allergy Intermediate Rash 06/30/17 Yes dronedarone Allergy Intermediate POSSIBLE RASH (MAY ALSO BE FROM ELIQUIS) 06/30/17 Yes rivaroxaban Allergy Intermediate 06/30/17 Yes warfarin Allergy Intermediate Hives 06/30/17 Yes Physical Exam Physical Exam Constitutional: Well developed, well nourished, no acute distress, non-toxic appearance HENT: Normocephalic, atraumatic, oropharynx moist, nasal congestion Eyes: Conjunctiva normal, no discharge Neck: Normal range of motion, no tenderness, supple Cardiovascular: Heart rate normal, regular rhythm Lungs & Thorax: Bilateral breath sounds equal, coarse breath sounds Skin: Warm, dry, no erythema, no rash Extremities: No tenderness, ROM intact, no edema Neurologic: Alert and oriented X 3, no focal deficits noted Psychologic: Affect normal, judgement normal Current Patient Data Vital Signs Vital Signs Date Time Temp Pulse Resp B/P (MAP) Pulse Ox O2 Delivery O2 Flow Rate FiO2 05/29/19 10:42 99 Nasal Cannula 3.0 05/29/19 10:38 99.3 87 22 154/75 (101) 99.3 Lab Values Laboratory Tests Test 05/29/19 10:40 05/29/19 10:52 Influenza Type A Antigen Negative (NEGATIVE) Influenza Type B Antigen Negative (NEGATIVE) White Blood Count 10.7 x10^3/uL (4.0-11.0) Red Blood Count 4.89 x10^6/uL (3.50-5.40) Hemoglobin 14.7 g/dL (12.0-15.5) Hematocrit 43.5 % (36.0-47.0) Mean Corpuscular Volume 89 fL (79-100) Mean Corpuscular Hemoglobin 30 pg (25-35) Mean Corpuscular Hemoglobin Concent 34 g/dL (31-37) Red Cell Distribution Width 13.4 % (11.5-14.5) Platelet Count 197 x10^3/uL (140-400) Neutrophils (%) (Auto) 76 % (31-73) H Lymphocytes (%) (Auto) 11 % (24-48) L Monocytes (%) (Auto) 7 % (0-9) Eosinophils (%) (Auto) 5 % (0-3) H Basophils (%) (Auto) 1 % (0-3) Neutrophils # (Auto) 8.1 x10^3/uL (1.8-7.7) H Lymphocytes # (Auto) 1.2 x10^3/uL (1.0-4.8) Monocytes # (Auto) 0.8 x10^3/uL (0.0-1.1) Eosinophils # (Auto) 0.6 x10^3/uL (0.0-0.7) Basophils # (Auto) 0.1 x10^3/uL (0.0-0.2) Sodium Level 141 mmol/L (136-145) Potassium Level 4.1 mmol/L (3.5-5.1) Chloride Level 100 mmol/L (98-107) Carbon Dioxide Level 35 mmol/L (21-32) H Anion Gap 6 (6-14) Blood Urea Nitrogen 14 mg/dL (7-20) Creatinine 0.8 mg/dL (0.6-1.0) Estimated GFR (Cockcroft-Gault) 69.9 BUN/Creatinine Ratio 18 (6-20) Glucose Level 155 mg/dL (70-99) H Lactic Acid Level 1.3 mmol/L (0.4-2.0) Calcium Level 8.9 mg/dL (8.5-10.1) Total Bilirubin 0.9 mg/dL (0.2-1.0) Aspartate Amino Transferase (AST) 15 U/L (15-37) Alanine Aminotransferase (ALT) 15 U/L (14-59) Alkaline Phosphatase 122 U/L (46-116) H Creatine Kinase 97 U/L (26-192) Creatine Kinase MB (Mass) 0.8 ng/mL (0.0-3.6) Creatine Kinase MB Relative Index 0.8 % (0-4) Troponin I Quantitative < 0.017 ng/mL (0.000-0.055) MX-Dhg-X-Type Natriuretic Peptide 162 pg/mL (0-449) Total Protein 6.9 g/dL (6.4-8.2) Albumin 3.3 g/dL (3.4-5.0) L Albumin/Globulin Ratio 0.9 (1.0-1.7) L Laboratory Tests 05/29/19 10:52 Laboratory Tests 05/29/19 10:52 EKG EKG @1036 NSR at 87bpm, baseline artifact noted, NO ST elevation, Radiology/Procedures Radiology/Procedures PROCEDURE: CHEST PA & LATERAL CHEST PA LATERAL History: Cough.. Comparison with 04/20/2019. Cardiomediastinal silhouette is stable. Aorta remains tortuous and ectatic. Mild ill-definition of central pulmonary vascularity has slightly improved since previous exam. Mild increased markings in the left lower lobe, since that study. No new lobar consolidation. No evidence of pneumothorax. No evidence of pleural effusion. Bones appear grossly intact. IMPRESSION: Development of mild infiltrate or atelectasis in the left lung base. Electronically signed by: Wayne Maat MD (05/29/2019 11:46 AM) [facility] Course & Med Decision Making Course & Med Decision Making Pertinent Labs and Imaging studies reviewed. (See chart for details) Patient presents with URI type symptoms and clearing cough, is congestion, headache, subjective fever/chills, and body aches. Patient noted to be 73% on room air upon arrival. Patient does report use of 2 L nasal cannula primarily at night. Patient placed on 2 L with increase to 99%. Symptomatic treatment provided with steroid and respiratory nebs. Labs obtained and posted to chart. WBC and lactic acid within normal limits. Troponin and BNP also within normal limits. EKG stable. Chest x-ray with signs of possible early pneumonia. Empiric antibiotics initiated. Offered observation admission for further evaluation and treatment. Patient elects to trial home therapy as she currently has O2 tanks and nebulizer machine at home. Patient stable for discharge with outpatient follow-up with PCP. Discussed findings and plan with patient and family, who acknowledge understanding and agreement. Dragon Disclaimer Dragon Disclaimer This electronic medical record was generated, in whole or in part, using a voice recognition dictation system. Departure Departure Impression: Primary Impression: Pneumonia Additional Impression: Hypoxia Disposition: 01 HOME, SELF-CARE Condition: STABLE Referrals: CHESTER HAWLEY MD (PCP) Patient Instructions: Pneumonia, Adult, Srhl-ds-Cvqg Scripts Albuterol Sulfate (ALBUTEROL SULFATE CONC NEB SOLN) 2.5 Mg/0.5 Ml Vial.neb 1 VIAL NEB Q6HRS PRN for WHEEZING, #60 VIAL Prov: WAYNE ORTEGA DO 05/29/19 Albuterol Sulfate (Proair Hfa) 8.5 Gm Hfa.aer.ad 2 PUFF IH PRN Q4-6HRS PRN for wheezing for 21 Days, #1 INHALER 0 Refills Prov: WAYNE ORTEGA DO 05/29/19 Azithromycin (ZITHROMAX) 250 Mg Tablet 1 PKG PO UD, #6 TAB Take 2 tablets on day 1 and then 1 tablet each day for the next 4 days as directed Prov: WAYNE ORTEGA DO 05/29/19 Benzonatate (TESSALON PERLE) 100 Mg Capsule 100 MG PO TID PRN for COUGH, #20 CAP Prov: WAYNE ORTEGA DO 05/29/19 Prednisone (PREDNISONE) 20 Mg Tablet 2 TAB PO DAILY, #8 TAB Start this prescription tomorrow, Thursday05/30/19 Prov: WAYNE ORTEGA DO 05/29/19 Critical Care Time Critical care time was 30 minutes which includes time at bedside, spent in discussion of patient's care with specialists and/or family members, with interpretation of laboratory and/or radiological studies and is exclusive of procedures. Problem Qualifiers Primary Impression: Pneumonia Pneumonia type: due to unspecified organism Laterality: left Lung location: lower lobe of lung Qualified Codes: J18.9 - Pneumonia, unspecified organism WAYNE ORTEGA DO May 29, 2019 10:42
[2019-05-29] MEDS ORDERED: IPRATRPIUM/ALBUTEROL 0.5/2.5MG 3 ML NEBU. NEB ONE (10:45)
[2019-05-29] MEDS ORDERED: DEXAMETHASONE SOD PHOS 4 MG/ML VIAL IVP ONE (10:45)
[2019-05-29] MEDS ORDERED: KETOROLAC 15 MG/ML VIAL. IVP ONE (11:00)
[2019-05-29 11:13] LABS: BASO # 0.1 x10^3/uL (0.0-0.2); BASO % 1 % (0-3); EOS # 0.6 x10^3/uL (0.0-0.7); EOS % 5 % (0-3); HEMATOCRIT 43.5 % (36.0-47.0); HEMOGLOBIN 14.7 g/dL (12.0-15.5); LYMPH # 1.2 x10^3/uL (1.0-4.8); LYMPH % 11 % (24-48); MEAN CORPUSCULAR HEMOGLOBIN 30 pg (25-35); MEAN CORPUSCULAR HGB CONC 34 g/dL (31-37); MEAN CORPUSCULAR VOLUME 89 fL (79-100); MONO # 0.8 x10^3/uL (0.0-1.1); MONO % 7 % (0-9); NEUT # 8.1 x10^3/uL (1.8-7.7); NEUT % 76 % (31-73); PLATELET COUNT 197 x10^3/uL (140-400); RED BLOOD COUNT 4.89 x10^6/uL (3.50-5.40); RED CELL DISTRIBUTION WIDTH 13.4 % (11.5-14.5); WHITE BLOOD COUNT 10.7 x10^3/uL (4.0-11.0)
[2019-05-29 11:28] LABS: CALCIUM 8.9 mg/dL (8.5-10.1); CREATININE 0.8 mg/dL (0.6-1.0); GFR 69.9; POTASSIUM 4.1 mmol/L (3.5-5.1)
[2019-05-29] MEDS ORDERED: BUTALB/APAP/CAFEIN 50/325/40MG TABLET. PO ONE (11:30)
[2019-05-29 11:41] LABS: ALBUMIN 3.3 g/dL (3.4-5.0); ALBUMIN/GLOBULIN RATIO 0.9 (1.0-1.7); TOTAL BILIRUBIN 0.9 mg/dL (0.2-1.0); TOTAL PROTEIN 6.9 g/dL (6.4-8.2)
--- NOTE | 2019-05-29 11:49 | RAD ---
CHEST PA LATERAL History: Cough.. Comparison with 04/20/2019. Cardiomediastinal silhouette is stable. Aorta remains tortuous and ectatic. Mild ill-definition of central pulmonary vascularity has slightly improved since previous exam. Mild increased markings in the left lower lobe, since that study. No new lobar consolidation. No evidence of pneumothorax. No evidence of pleural effusion. Bones appear grossly intact. IMPRESSION: Development of mild infiltrate or atelectasis in the left lung base. Electronically signed by: Wayne Mata MD (05/29/2019 11:46 AM) [facility]
[2019-05-29 11:52] LABS: INFLUENZA A PATIENT NEGATIVE (NEGATIVE); INFLUENZA B PATIENT NEGATIVE (NEGATIVE)
[2019-05-29] MEDS ORDERED: ALBU2.5V14 NEB (12:08)
[2019-05-29] MEDS ORDERED: ALBU2.5V8 IH (12:08)
[2019-05-29] MEDS ORDERED: AZIT250T PO (12:08)
[2019-05-29] MEDS ORDERED: PRED20TA PO (12:08)
[2019-05-29] MEDS ORDERED: BENZ100C PO (12:08)
[2019-05-29] MEDS ORDERED: cefTRIAXone IV Push 1 GM VIAL. IVP ONE (12:15)
--- NOTE | 2019-05-30 07:31 | EKG ---
[facility] [address] [place] [address] Test Date: 2019-05-29 Test Time: 10:36:04 Pat Name: MOOKIE CRANE Department: Room: Gender: F [employer] Operator: : 1945 Requested By: HARLEY ORTEGA Order Number: [id number] Reading MD: Measurements Intervals [place] Rate: 87 P: 60 HI: 196 QRS: -11 QRSD: 102 T: 17 QT: 350 QTc: 422 Interpretive Statements SINUS RHYTHM LEFTWARD AXIS QRS(T) CONTOUR ABNORMALITY CONSIDER ANTEROSEPTAL MYOCARDIAL DAMAGE CONSIDER INFERIOR INFARCT POSSIBLY ABNORMAL ECG RI6.01 No previous ECG available for comparison
== END 2019-05-29 12:21 | disposition home or self-care (01) ==
LOC: ER 10:29
DX: J18.9 Pneumonia, unspecified organism (principal); R09.02 Hypoxemia; I48.91 Unspecified atrial fibrillation; M19.90 Unspecified osteoarthritis, unspecified site; J44.9 Chronic obstructive pulmonary disease, unspecified; E78.00 Pure hypercholesterolemia, unspecified; I10 Essential (primary) hypertension; Z87.891 Personal history of nicotine dependence; Z88.4 Allergy status to anesthetic agent; Z88.0 Allergy status to penicillin; Z88.2 Allergy status to sulfonamides; Z88.8 Allergy status to other drugs, medicaments and biological substances
CPT/HCPCS: 36415; 71046; 80053; 82553; 83605; 83880; 84484; 85025; 87040; 87804; 93005; 94640; 96374; 96375; 99285; J0696; J1100; J1885; J7620

== ENCOUNTER → 2019-08-26 | Outpatient (CLI) | payer OTHER ==
[~2019-08-26] MED LIST changes: +ALBU2.5V14 NEB; +ALBU2.5V8 IH; +AZIT250T PO; +BENZ100C PO
--- NOTE | 2019-08-26 09:40 | RAD ---
VENOUS LOWER EXTREMITY RIGHT History: Right lower extremity swelling. Comparison: None. Discussion: Multiple longitudinal and transverse high resolution real-time images of the venous system of right lower extremity were obtained with color and Doppler sampling. The common femoral, superficial femoral, and popliteal veins are all patent and demonstrate normal flow and compressibility. Normal respiratory phasicity and augmentation is present. Degraded evaluation of the calf veins. Enlarged right inguinal lymph node measures 3.7 x 0.9 x 2.7 cm. Impression: 1. No evidence of deep vein thrombosis within the right lower extremity. 2. Enlarged right inguinal lymph node, may relate to reactive lymphadenopathy. Recommend clinical follow-up. Electronically signed by: Reyes Samuels DO (08/26/2019 9:37 AM) [id number]
== END ==
LOC: US 08:49
PROVIDERS: ATTEND Family Medicine
DX: R59.0 Localized enlarged lymph nodes (principal)
CPT/HCPCS: 93971

== ENCOUNTER → 2020-03-23 | Outpatient (CLI) | payer OTHER ==
[~2020-03-23] MED LIST changes: -CETI10TA24 PO; +CETI10TA74 PO; +MULT-445 PO; -MULT1TAB52 PO
--- NOTE | 2020-03-23 16:21 | RAD ---
Sonography of the right groin Clinical indications: Right inguinal lymphadenopathy seen on ultrasound study dated August 26, 2019. COMPARISON: August 26, 2019. FINDINGS: Again seen is a lymph node of the right inguinal area which demonstrates normal lymph node sonographic architecture without abnormal thickening of the cortex. Lymph node measures 31 mm x 7 mm x 16 mm in size. It measured 37 mm x 9 mm x 27 mm previously. Therefore, it has decreased in size. IMPRESSION: Mild decrease in size of benign-appearing lymph node of the right groin. Electronically signed by: Geronimo Hernandez MD (03/23/2020 4:19 PM) [id number]
== END ==
LOC: US 14:30
PROVIDERS: ATTEND Family Medicine
DX: R59.9 Enlarged lymph nodes, unspecified (principal)
CPT/HCPCS: 76881

== ENCOUNTER 2020-05-31 12:48 | Inpatient (IN) | payer OTHER ==
[~2020-05-31] VITALS: Ht 149.9 cm; Wt 103.4 kg
[~2020-05-31 12:48] MED LIST changes: -DRON400T PO; +DRON400T6 PO; +LISI10TA16 PO; -LISI10TA2 PO; -OMEP40CA45 PO; +OMEP40CA7 PO
[2020-05-31 13:33] LABS: BASO # 0.1 x10^3/uL (0.0-0.2); BASO % 2 % (0-3); EOS # 0.2 x10^3/uL (0.0-0.7); EOS % 3 % (0-3); HEMATOCRIT 43.9 % (36.0-47.0); HEMOGLOBIN 14.6 g/dL (12.0-15.5); LYMPH # 1.5 x10^3/uL (1.0-4.8); LYMPH % 27 % (24-48); MEAN CORPUSCULAR HEMOGLOBIN 30 pg (25-35); MEAN CORPUSCULAR HGB CONC 33 g/dL (31-37); MEAN CORPUSCULAR VOLUME 90 fL (79-100); MONO # 0.5 x10^3/uL (0.0-1.1); MONO % 10 % (0-9); NEUT # 3.3 x10^3/uL (1.8-7.7); NEUT % 59 % (31-73); PLATELET COUNT 204 x10^3/uL (140-400); RED BLOOD COUNT 4.87 x10^6/uL (3.50-5.40); RED CELL DISTRIBUTION WIDTH 15.9 % (11.5-14.5); WHITE BLOOD COUNT 5.7 x10^3/uL (4.0-11.0)
[2020-05-31 13:43] LABS: CALCIUM 8.7 mg/dL (8.5-10.1); CREATININE 0.9 mg/dL (0.6-1.0); GFR 60.9; POTASSIUM 4.4 mmol/L (3.5-5.1)
[2020-05-31 13:49] LABS: ALBUMIN 2.7 g/dL (3.4-5.0); ALBUMIN/GLOBULIN RATIO 0.8 (1.0-1.7); C-REACTIVE PROTEIN 4.9 mg/L (0-3.3); TOTAL BILIRUBIN 0.7 mg/dL (0.2-1.0); TOTAL PROTEIN 6.3 g/dL (6.4-8.2)
--- NOTE | 2020-05-31 13:53 | RAD ---
Single AP view of the chest. Comparison: 05/29/2019. Indication: Cough, possible Covid Findings: The heart is enlarged but stable. There is no pneumothorax or effusion. In the right upper lobe ther e is peripheral interstitial opacity. Questionable similar opacity on the left side. Impression: 1. Right upper lobe peripheral interstitial opacity as well as mild interstitial opacity in the left upper lobe suggests possible atypical infection which may be consistent with Covid given the stated i ndication for the examination. Electronically signed by: Juan J Cardona MD (05/31/2020 1:51 PM) [id number]
[2020-05-31] MEDS ORDERED: cefTRIAXone IV Push 1 GM VIAL. IVP ONE (14:15)
[2020-05-31] MEDS ORDERED: DEXAMETHASONE SOD PHOS 4 MG/ML VIAL IVP ONE (14:15)
[2020-05-31] MEDS ORDERED: oxyCODONE/APAP 5/325 1 TAB TABLET PO ONE (14:30)
[2020-05-31] MEDS ORDERED: CONTRAST GIVEN. MC PRN (14:30)
[2020-05-31] MEDS ORDERED: IOHEXOL 350 MG/ML 100 ML VIAL. IV ONE (14:30)
--- NOTE | 2020-05-31 15:06 | RAD ---
Examination: CT angiography chest without contrast HISTORY: History of elevated d-dimer, hypoxia COMPARISON: None available TECHNIQUE: Axial CT angiographic images of chest were performed with IV contrast. Coronal sagittal 3- D MIP reformats are performed Exposure: One or more of the following individualized dose reduction techniques were utilized for thi s examination: 1. Automated exposure control 2. Adjustment of the mA and/or kV according to patient size 3. Use of iterative reconstruction technique FINDINGS: The central airways are patent. Moderate cardiomegaly. Coronary artery calcifications identified. The re is no evidence of filling defect identified in the main pulmonary arterial trunk. There is filling defects identified in the bilateral main pulmonary arteries and the visualized lobar, segmental bran ch of the pulmonary arteries including the right middle lobe, right lower lobe, left upper lobe and l eft lower lobe pulmonary arterial branches likely multiple pulmonary emboli. Moderate bilateral lung emphysematous changes. There are patchy airspace opacities identified in the bilateral lungs includin g the right upper lobe, right middle lobe, left upper lobe, bibasilar lungs likely atelectasis or inf iltrates or covid pneumonia. Mild degree attenuation noted in the liver likely represent hepatic stea tosis. The spleen, adrenals grossly appears unremarkable Moderate degenerative changes thoracic spine. IMPRESSION: 1. Multiple filling defects identified in the bilateral distal main pulmonary arteries and the visua lized lobar, segmental branches of the pulmonary arteries including the right middle lobe, right lowe r lobe, left upper lobe and left lower lobe pulmonary arterial branches likely multiple pulmonary emb teresita. 2. Patchy airspace opacities identified in the bilateral lungs including the right upper lobe, right middle lobe, left upper lobe and bibasilar lungs likely atelectasis or infiltrates or covid pneumoni a. Follow-up to resolution. 3. Moderate cardiomegaly with coronary artery calcifications. 4. Mild hepatic steatosis. FOR INTERNAL CODING PURPOSES Critical result: Findings discussed with ordering physician at 05/31/2020 3:04 PM. RESULT CODE: (C) Electronically signed by: Del Frias MD (05/31/2020 3:04 PM) [id number]
--- NOTE | 2020-05-31 16:05 | ED.ADGEN ---
Past Medical History Past Medical History: A-Fib, Arthritis, COPD, High Cholesterol, Hypertension Past Surgical History: Hysterectomy, Tubal ligation Smoking Status: Former Smoker Alcohol Use: Rarely Drug Use: None General Adult EDM: Chief Complaint: SHORTNESS OF BREATH HPI: HPI: Patient is a 74-year-old female who presents to the emergency room with shortness of breath. Patient tested positive for coronavirus 4 weeks ago. She states since this started she has been having progressively worsening shortness of breath, severe fatigue, body aches. She states that if she tries to get up and walk to the bathroom she has to use her as needed oxygen at home. She has had her taking care of her. She states she went to her primary care doctor today and she had a pulse ox in the 70s so they sent her here for evaluation. Review of Systems: Review of Systems: Complete ROS is negative unless otherwise documented in HPI Current Medications: Current Medications Medications (Trade) Dose Ordered Sig/Arabella Start Time Stop Time Status Last Admin Dose Admin Ceftriaxone Sodium (Rocephin) 1 gm 1X ONCE 05/31/20 14:15 05/31/20 14:16 DC 05/31/20 14:52 1 GM Dexamethasone Sodium Phosphate (Decadron) 10 mg 1X ONCE 05/31/20 14:15 05/31/20 14:16 DC 05/31/20 14:51 10 MG Enoxaparin Sodium (Lovenox 100mg Syringe) 100 mg 1X ONCE 05/31/20 15:30 05/31/20 15:31 DC Info (CONTRAST GIVEN -- Rx MONITORING) 1 each PRN DAILY PRN 05/31/20 14:30 06/02/20 14:29 Iohexol (Omnipaque 350 Mg/ml) 100 ml 1X ONCE 05/31/20 14:30 05/31/20 14:31 DC 05/31/20 14:43 100 ML Oxycodone/ Acetaminophen (Percocet 5/325) 1 tab 1X ONCE 05/31/20 14:30 05/31/20 14:31 DC 05/31/20 14:51 1 TAB Allergies: Allergies: Allergies Coded Allergies Type Severity Reaction Last Updated Verified Anesthetics - Amide Type - Select A Allergy Intermediate broke out with hives - (all Juan Carlos) 06/30/17 Yes Anesthetics - Reny Type- Parabens Allergy Intermediate 06/30/17 Yes Penicillins Allergy Intermediate RASH 06/30/17 Yes Sulfa (Sulfonamide Antibiotics) Allergy Intermediate RASH 06/30/17 Yes apixaban Allergy Intermediate POSSIBLE RASH (MAY ALSO BE FROM DRONEDARONE) 04/21/19 Yes dabigatran etexilate Allergy Intermediate Rash 06/30/17 Yes dronedarone Allergy Intermediate POSSIBLE RASH (MAY ALSO BE FROM ELIQUIS) 06/30/17 Yes rivaroxaban Allergy Intermediate 06/30/17 Yes warfarin Allergy Intermediate Hives 06/30/17 Yes Physical Exam: PE: General: Awake, alert, NAD. Well Nourished, well hydrated. Cooperative HEENT: Atraumatic, EOMI, PERRL, airway patent, moist oral mucosa Neck: Supple, trachea midline Respiratory: Decreased breath sounds bilaterally with minimal crackles CV: RRR, no murmur, cap refill <2 GI: Soft, nondistended, nontender, no masses MSK: No obvious deformities Skin: Warm, dry, intact Neuro: A&O x3, speech NL, sensory and motor grossly intact, no focal deficits Psych: Normal affect, normal mood, not suicidal or homicidal Current Patient Data: Labs: Laboratory Tests Test 05/31/20 13:13 White Blood Count 5.7 x10^3/uL (4.0-11.0) Red Blood Count 4.87 x10^6/uL (3.50-5.40) Hemoglobin 14.6 g/dL (12.0-15.5) Hematocrit 43.9 % (36.0-47.0) Mean Corpuscular Volume 90 fL (79-100) Mean Corpuscular Hemoglobin 30 pg (25-35) Mean Corpuscular Hemoglobin Concent 33 g/dL (31-37) Red Cell Distribution Width 15.9 % (11.5-14.5) H Platelet Count 204 x10^3/uL (140-400) Neutrophils (%) (Auto) 59 % (31-73) Lymphocytes (%) (Auto) 27 % (24-48) Monocytes (%) (Auto) 10 % (0-9) H Eosinophils (%) (Auto) 3 % (0-3) Basophils (%) (Auto) 2 % (0-3) Neutrophils # (Auto) 3.3 x10^3/uL (1.8-7.7) Lymphocytes # (Auto) 1.5 x10^3/uL (1.0-4.8) Monocytes # (Auto) 0.5 x10^3/uL (0.0-1.1) Eosinophils # (Auto) 0.2 x10^3/uL (0.0-0.7) Basophils # (Auto) 0.1 x10^3/uL (0.0-0.2) D-Dimer (Tasha) 2.52 ug/mlFEU (0.00-0.50) H Sodium Level 142 mmol/L (136-145) Potassium Level 4.4 mmol/L (3.5-5.1) Chloride Level 106 mmol/L (98-107) Carbon Dioxide Level 31 mmol/L (21-32) Anion Gap 5 (6-14) L Blood Urea Nitrogen 14 mg/dL (7-20) Creatinine 0.9 mg/dL (0.6-1.0) Estimated GFR (Cockcroft-Gault) 60.9 BUN/Creatinine Ratio 16 (6-20) Glucose Level 121 mg/dL (70-99) H Calcium Level 8.7 mg/dL (8.5-10.1) Total Bilirubin 0.7 mg/dL (0.2-1.0) Aspartate Amino Transferase (AST) 21 U/L (15-37) Alanine Aminotransferase (ALT) 32 U/L (14-59) Alkaline Phosphatase 93 U/L (46-116) Lactate Dehydrogenase 271 U/L (81-234) H Creatine Kinase 30 U/L (26-192) Troponin I Quantitative < 0.017 ng/mL (0.000-0.055) C-Reactive Protein, Quantitative 4.9 mg/L (0-3.3) H TT-Vih-P-Type Natriuretic Peptide 3754 pg/mL (0-449) H Total Protein 6.3 g/dL (6.4-8.2) L Albumin 2.7 g/dL (3.4-5.0) L Albumin/Globulin Ratio 0.8 (1.0-1.7) L Laboratory Tests 05/31/20 13:13 Laboratory Tests 05/31/20 13:13 Vital Signs: Vital Signs Date Time Temp Pulse Resp B/P (MAP) Pulse Ox O2 Delivery O2 Flow Rate FiO2 05/31/20 13:15 93 Nasal Cannula 5.0 05/31/20 12:55 98.4 68 21 160/84 (109) 98.4 EKG: EKG: [] Heart Score: Risk Factors: Risk Factors: DM, Current or recent (<one month) smoker, HTN, HLP, family history of CAD, obesity. Risk Scores: Score 0 - 3: 2.5% MACE over next 6 weeks - Discharge Home Score 4 - 6: 20.3% MACE over next 6 weeks - Admit for Clinical Observation Score 7 - 10: 72.7% MACE over next 6 weeks - Early Invasive Strategies Radiology/Procedures: Radiology/Procedures: [] Course & Med Decision Making: Course & Med Decision Making Pertinent Labs and Imaging studies reviewed. (See chart for details) Patient is a 74-year-old female who presents to the emergency room in respiratory failure with hypoxia. Patient has known coronavirus and is 4 weeks out from her initial positive test. Concern at this time is for post viral pneumonia versus pulmonary embolism. CT PE was ordered and shows multiple pulmonary embolisms. Patient was started on Lovenox. She was also started on antibiotics as her chest shows pneumonia. Patient will be admitted on oxygen. Dragon Disclaimer: [employer] Mobile Disclaimer: This electronic medical record was generated, in whole or in part, using a voice recognition dictation system. Departure Departure Impression: Primary Impression: Respiratory failure with hypoxia Additional Impressions: Pulmonary embolism COVID-19 Disposition: 09 ADMITTED INPT THIS HOSP Condition: STABLE Referrals: CHESTER HAWLEY MD (PCP) Problem Qualifiers NOEL CRANE MD May 31, 2020 16:04
--- NOTE | 2020-05-31 18:03 | HP ---
ADMIT DATE: 05/31/2020 CHIEF COMPLAINT: Shortness of breath. HISTORY OF PRESENT ILLNESS: The patient is a pleasant 74-year-old female who has been suffering from COVID-19 for 4 weeks. She states she is probably on the end of that now, but now she suddenly developed shortness of breath. We did a CAT scan that is showing bilateral pulmonary emboli. I discussed the case with ER physician. We are going to admit the patient for anticoagulation and consultation with Pulmonary Medicine. PAST MEDICAL HISTORY: COVID-19 for the past 4 weeks, AFib, arthritis, COPD, hypertension, hyperlipidemia, hysterectomy, tubal ligation, previous tobacco abuse. ALLERGIES: ANESTHETICS, SULFA, COUMADIN, and please refer to the allergy list in the chart. There are several others. FAMILY HISTORY: Diabetes. SOCIAL HISTORY: She does not drink or take drugs. She did use to smoke though. She is retired. MEDICATIONS: Reviewed, please refer to the MRAD. REVIEW OF SYSTEMS: GENERAL: No history of weight change, weakness or fevers. SKIN: No bruising, hair changes or rashes. EYES: No blurred, double or loss of vision. NOSE AND THROAT: No history of nosebleeds, hoarseness or sore throat. HEART: No history of palpitations, chest pain or shortness of breath on exertion. LUNGS: Denies cough, hemoptysis, wheezing or shortness of breath. GASTROINTESTINAL: Denies changes in appetite, nausea, vomiting, diarrhea or constipation. GENITOURINARY: No history of frequency, urgency, hesitancy or nocturia. NEUROLOGIC: Denies history of numbness, tingling, tremor or weakness. PSYCHIATRIC: No history of panic, anxiety or depression. ENDOCRINE: No history of heat or cold intolerance, polyuria or polydipsia. EXTREMITIES: Denies muscle weakness, joint pain, pain on walking or stiffness. PHYSICAL EXAMINATION: VITALS: Within normal limits and are stable. GENERAL: No apparent distress. Alert and oriented. HEENT: Normal cephalic atraumatic, external auditory canals are patent EYES: Extraocular muscles are intact, pupils are equally round and reactive to light and accommodation MUSCULOSKELETAL: Well developed, well nourished, good range of motion ENDOCRINE: No thyromegaly was palpated LYMPHATICS: No cervical chain or axillary nodes were noted HEMATOPOIETIC: No bruising NECK: Supple, no JVD, no thyromegaly was noted. LUNGS: She has bibasilar crackles. HEART: RRR, S1, S2 present. Peripheral pulses intact, no obvious murmurs were noted. ABDOMEN: Soft, nontender. Positive bowel sounds no organomegaly, normal bowel sounds. EXTREMITIES: Without any cyanosis, clubbing, or edema. Pedal pulses intact, Homans sign is negative. NEUROLOGIC: Normal speech, normal tone. A & O x3, moves all extremities, no obvious focal deficits. PSYCHIATRIC: Normal affect, normal mood. Stable. SKIN: No ulcerations or rashes, good skin turgor, no jaundice. VASCULAR: Good capillary refill, neurovascular bundle appears to be intact. LABORATORY DATA: White count is 5. CT of the chest shows multiple filling defects bilaterally in the distal main pulmonary arteries, likely pulmonary emboli. ASSESSMENT AND PLAN: Pulmonary emboli. The patient has been admitted. We are starting anticoagulation. Consult Pulmonary. Home meds. Deep venous thrombosis prophylaxis. Full code. PROGNOSIS: Guarded. TR PEREZ DO DR: [place]ST[place]/lucille JOB#: [id number] / [id number]
[2020-06-01] VITALS (7 sets, daily range): BP systolic 111–164; BP diastolic 57–86
[2020-06-01] MEDS ORDERED: GABA-585 PO (03:41)
[2020-06-01] MEDS ORDERED: ATOR20TA58 PO (03:41)
[2020-06-01] MEDS ORDERED: GABA300C18 PO (03:41)
[2020-06-01] MEDS ORDERED: LISI2.5T PO (03:42)
--- NOTE | 2020-06-01 09:43 | PDOC ---
PULMONARY PROGRESS NOTES DATE: 06/01/20 TIME: 09:42 Vitals Vital Signs Date Time Temp Pulse Resp B/P (MAP) Pulse Ox O2 Delivery O2 Flow Rate FiO2 06/01/20 07:59 97.7 65 18 153/74 (100) 89 Nasal Cannula 5.0 97.7 General: Alert, No acute distress Lungs: Wheezing Cardiovascular: S1 Abdomen: Soft Extremities: No Edema Labs Laboratory Tests Test 05/31/20 13:13 White Blood Count 5.7 x10^3/uL (4.0-11.0) Red Blood Count 4.87 x10^6/uL (3.50-5.40) Hemoglobin 14.6 g/dL (12.0-15.5) Hematocrit 43.9 % (36.0-47.0) Mean Corpuscular Volume 90 fL (79-100) Mean Corpuscular Hemoglobin 30 pg (25-35) Mean Corpuscular Hemoglobin Concent 33 g/dL (31-37) Red Cell Distribution Width 15.9 % (11.5-14.5) Platelet Count 204 x10^3/uL (140-400) Neutrophils (%) (Auto) 59 % (31-73) Lymphocytes (%) (Auto) 27 % (24-48) Monocytes (%) (Auto) 10 % (0-9) Eosinophils (%) (Auto) 3 % (0-3) Basophils (%) (Auto) 2 % (0-3) Neutrophils # (Auto) 3.3 x10^3/uL (1.8-7.7) Lymphocytes # (Auto) 1.5 x10^3/uL (1.0-4.8) Monocytes # (Auto) 0.5 x10^3/uL (0.0-1.1) Eosinophils # (Auto) 0.2 x10^3/uL (0.0-0.7) Basophils # (Auto) 0.1 x10^3/uL (0.0-0.2) D-Dimer (Tasha) 2.52 ug/mlFEU (0.00-0.50) Sodium Level 142 mmol/L (136-145) Potassium Level 4.4 mmol/L (3.5-5.1) Chloride Level 106 mmol/L (98-107) Carbon Dioxide Level 31 mmol/L (21-32) Anion Gap 5 (6-14) Blood Urea Nitrogen 14 mg/dL (7-20) Creatinine 0.9 mg/dL (0.6-1.0) Estimated GFR (Cockcroft-Gault) 60.9 BUN/Creatinine Ratio 16 (6-20) Glucose Level 121 mg/dL (70-99) Calcium Level 8.7 mg/dL (8.5-10.1) Total Bilirubin 0.7 mg/dL (0.2-1.0) Aspartate Amino Transf (AST/SGOT) 21 U/L (15-37) Alanine Aminotransferase (ALT/SGPT) 32 U/L (14-59) Alkaline Phosphatase 93 U/L (46-116) Lactate Dehydrogenase 271 U/L (81-234) Creatine Kinase 30 U/L (26-192) Troponin I Quantitative < 0.017 ng/mL (0.000-0.055) C-Reactive Protein, Quantitative 4.9 mg/L (0-3.3) QB-Nbb-A-Type Natriuretic Peptide 3754 pg/mL (0-449) Total Protein 6.3 g/dL (6.4-8.2) Albumin 2.7 g/dL (3.4-5.0) Albumin/Globulin Ratio 0.8 (1.0-1.7) Laboratory Tests Test 05/31/20 13:13 White Blood Count 5.7 x10^3/uL (4.0-11.0) Red Blood Count 4.87 x10^6/uL (3.50-5.40) Hemoglobin 14.6 g/dL (12.0-15.5) Hematocrit 43.9 % (36.0-47.0) Mean Corpuscular Volume 90 fL (79-100) Mean Corpuscular Hemoglobin 30 pg (25-35) Mean Corpuscular Hemoglobin Concent 33 g/dL (31-37) Red Cell Distribution Width 15.9 % (11.5-14.5) Platelet Count 204 x10^3/uL (140-400) Neutrophils (%) (Auto) 59 % (31-73) Lymphocytes (%) (Auto) 27 % (24-48) Monocytes (%) (Auto) 10 % (0-9) Eosinophils (%) (Auto) 3 % (0-3) Basophils (%) (Auto) 2 % (0-3) Neutrophils # (Auto) 3.3 x10^3/uL (1.8-7.7) Lymphocytes # (Auto) 1.5 x10^3/uL (1.0-4.8) Monocytes # (Auto) 0.5 x10^3/uL (0.0-1.1) Eosinophils # (Auto) 0.2 x10^3/uL (0.0-0.7) Basophils # (Auto) 0.1 x10^3/uL (0.0-0.2) D-Dimer (Tasha) 2.52 ug/mlFEU (0.00-0.50) Sodium Level 142 mmol/L (136-145) Potassium Level 4.4 mmol/L (3.5-5.1) Chloride Level 106 mmol/L (98-107) Carbon Dioxide Level 31 mmol/L (21-32) Anion Gap 5 (6-14) Blood Urea Nitrogen 14 mg/dL (7-20) Creatinine 0.9 mg/dL (0.6-1.0) Estimated GFR (Cockcroft-Gault) 60.9 BUN/Creatinine Ratio 16 (6-20) Glucose Level 121 mg/dL (70-99) Calcium Level 8.7 mg/dL (8.5-10.1) Total Bilirubin 0.7 mg/dL (0.2-1.0) Aspartate Amino Transf (AST/SGOT) 21 U/L (15-37) Alanine Aminotransferase (ALT/SGPT) 32 U/L (14-59) Alkaline Phosphatase 93 U/L (46-116) Lactate Dehydrogenase 271 U/L (81-234) Creatine Kinase 30 U/L (26-192) Troponin I Quantitative < 0.017 ng/mL (0.000-0.055) C-Reactive Protein, Quantitative 4.9 mg/L (0-3.3) UW-Tgq-O-Type Natriuretic Peptide 3754 pg/mL (0-449) Total Protein 6.3 g/dL (6.4-8.2) Albumin 2.7 g/dL (3.4-5.0) Albumin/Globulin Ratio 0.8 (1.0-1.7) Medications Active Scripts Medications Dose Route/Sig Max Daily Dose Days Date Category Dose Instructions Lisinopril 2.5 Mg Tablet 1 Tab PO DAILY 1/1/21 Reported Gabapentin (Gabapentin) 300 Mg Capsule 300 Mg PO QHS 06/01/20 Reported Gabapentin (Gabapentin) 100 Mg Capsule 100 Mg PO BIDACBL 06/01/20 Reported Atorvastatin Calcium 20 Mg Tablet 1 Tab PO DAILY 06/01/20 Reported Albuterol Sulfate Conc Neb Soln (Albuterol Sulfate) 2.5 Mg/0.5 Ml Vial.neb 1 Vial NEB Q6HRS PRN 05/29/19 Rx Proair Hfa (Albuterol Sulfate) 8.5 Gm Hfa.aer.ad 2 Puff IH PRN Q4-6HRS PRN 21 05/29/19 Rx Zithromax (Azithromycin) 250 Mg Tablet 1 Pkg PO UD 05/29/19 Rx Take 2 tablets on day 1 and then 1 tablet each day for the next 4 days as directed Tessalon Perle (Benzonatate) 100 Mg Capsule 100 Mg PO TID PRN 05/29/19 Rx Prednisone 20 Mg Tablet 2 Tab PO DAILY 05/29/19 Rx Start this prescription tomorrow, Thursday05/30/19 Toprol Xl (Metoprolol Succinate) 100 Mg Tab.er.24h 100 Mg PO DAILY 04/20/19 Reported Lasix (Furosemide) 20 Mg Tablet 1 Tab PO DAILY 30 04/20/19 Reported Flecainide Acetate 100 Mg Tablet 2 Tab PO DAILY 04/20/19 Reported Lyrica (Pregabalin) 150 Mg Capsule 1 Cap PO BID 04/20/19 Reported Klor-Con 10 (Potassium Chloride) 10 Meq Tablet.er 1 Tab PO BID 01/27/18 Reported Omeprazole 40 Mg Capsule.dr 1 Cap PO DAILY 11/02/17 Reported Flonase Allergy Relief (Fluticasone Propionate) 9.9 Ml [place].susp 2 Sprays NS PRN DAILY PRN 06/29/17 Reported Probiotic (Lactobacillus Combo No.11) 1 Each Cap.sprink 1 Each PO DAILY 06/29/17 Reported Multiple Vitamins (Multivitamin) 1 Each Tablet 1 Each PO DAILY 06/29/17 Reported Proair Hfa Inhaler (Albuterol Sulfate) 8.5 Gm Hfa.aer.ad 1 Puff INH PRN PRN 06/29/17 Reported [tylenol arthritis] 650 Mg PO Q8HRS 04/02/17 Reported Impression . Acute PE secondary to recent COVID-19, sedentary lifestyle Continue anticoagulation, patient does not tolerate novel agents, may do well with Lovenox at home. EZIO PORTER MD Jun 01, 2020 09:43
--- NOTE | 2020-06-01 10:12 | CONS ---
DATE OF CONSULTATION: 06/01/2020 ATTENDING PHYSICIAN: Mellisa Mckeon DO REASON FOR CONSULTATION: The patient is seen in pulmonary consultation at the request of Dr. Mckeon for increasing shortness of air. HISTORY OF PRESENT ILLNESS: The patient is a 74-year-old that tested positive for SARS-CoV-2 4 weeks ago. She normally wears oxygen on a p.r.n. basis, but over the last 2 weeks, she has had increasing use of oxygen supplementation. She has a history of COPD. The patient has been weak and has been lying in bed for the last 2-3 weeks. Her tested positive, but she states that he did well. She presented with increasing shortness of breath, weakness. She was evaluated and underwent a CT angiogram. I reviewed the CT revealing bilateral pulmonary emboli. There is also evidence of bilateral alveolar infiltrates. The patient is currently on anticoagulation. She was started on Lovenox. She does have a history of previous AFib, but was intolerant to any oral anticoagulation, according to the patient, she has tried apixaban. She has tried rivaroxaban and warfarin. She normally follows with Dr. Medrano. She denies any recent GI bleed. No hemoptysis. She quit tobacco 25 years ago. PAST MEDICAL HISTORY: Chronic AFib, currently not on anticoagulation. She is intolerant to be some of the new oral anticoagulant. She has a history of COPD, quit tobacco 25 years ago; chronic respiratory failure, normally on oxygen supplementation p.r.n. She has a history of hyperlipidemia, hypertension. PAST SURGICAL HISTORY: Status post hysterectomy, tubal ligation. SOCIAL HISTORY: She quit tobacco 25 years ago. Rarely uses alcohol. ALLERGIES: SHE HAS MULTIPLE ALLERGIES INCLUDING PENICILLIN, APIXABAN, RIVAROXABAN, WARFARIN. SHE HAS ALSO TRIED DABIGATRAN. MOST OF HER ALLERGIES ARE RELATED TO SKIN ERUPTION. REVIEW OF SYSTEMS: As indicated above, otherwise, a 10-point system was reviewed and negative. CURRENT MEDICATION: List was reviewed. PHYSICAL EXAMINATION: VITAL SIGNS: Stable. O2 saturation was greater than 92%. LUNGS: Anteriorly were clear. CARDIOVASCULAR: Regular rate and rhythm with S1, S2, no S3. ABDOMEN: Soft, nontender, nondistended. EXTREMITIES: No clubbing, cyanosis, some minimal edema. NEUROLOGICAL: The patient was awake, alert, following commands. A detailed neuro exam was not performed. LABORATORY DATA: Reviewed. White count was normal. Hemoglobin and hematocrit were noted. D-dimer was 2.52. Electrolytes were noted. BUN and creatinine were noted. BNP was elevated. Albumin was low. CT angiogram as indicated above. IMPRESSION: 1. Acute on chronic hypoxemic respiratory failure. 2. Acute pulmonary embolism related to COVID-19 along with obesity and sedentary lifestyle. 3. Recent SARS-CoV-2 positivity, patient was at home. She tested positive 4 weeks ago, did the same. 4. Chronic obstructive pulmonary disease. 5. Chronic hypoxemic respiratory failure. 6. Hypertension. 7. Morbid obesity. 8. Multiple allergies to medications. Please see the list. SHE IS ALLERGIC TO APIXABAN AND RIVAROXABAN. She has also not been tolerant to dabigatran. PLAN: 1. Continue oxygen supplementation. 2. Continue Lovenox. The patient may do well with Lovenox at home. 3. Doubt pneumonia. 4. PT, OT. 5. Continue home meds. I do appreciate the privilege in sharing in the patient's care. EZIO PORTER MD DR: YAN/lucille JOB#: [id number] / [id number]
[2020-06-01] MEDS ORDERED: FLUTICASONE 50MCG/NASAL SPRAY 16GM BOTTLE. NS PRN (10:45)
[2020-06-01] MEDS: POTASSIUM CHLORIDE 10 MEQ TABLET.ER. PO SCH ×2 (10:48→21:17)
[2020-06-01] MEDS: ACETAMINOPHEN 325 MG TABLET. PO PRN (10:55)
[2020-06-01] MEDS: MULTIVITAMIN with MINERAL TABLET. PO SCH (10:56)
[2020-06-01] MEDS: GABAPENTIN 100 MG CAPSULE. PO SCH (10:56)
[2020-06-01] MEDS: PANTOPRAZOLE 40 MG TABLET.DR. PO SCH (10:56)
[2020-06-01] MEDS: LACTOBACILLUS RHAMNOSUS GG 1 CAPSULE. PO SCH (10:56)
[2020-06-01] MEDS: PREGABALIN 75 MG CAPSULE PO SCH ×2 (10:56→21:17)
[2020-06-01] MEDS: FUROSEMIDE 20 MG TABLET PO SCH (10:56)
[2020-06-01] MEDS: METOPROLOL SUCC 24HR ER 100 MG TAB.ER.24H. PO SCH (10:57)
[2020-06-01] MEDS ORDERED: ALBUTEROL SULFATE 2.5 MG/3 ML NEBU. INH PRN (12:00)
--- NOTE | 2020-06-01 12:06 | PDOC ---
Provider Note Date of Service: DATE: 06/01/20 TIME: 12:03 Provider Note she is not sure if she is allergic to warf or not, will consult dr olivas to see if she has used before or not before starting same Justifications for Admission Other Justification RODRIGO GORDILLO MD Jun 01, 2020 12:06
--- NOTE | 2020-06-01 12:09 | PDOC ---
Provider Note Date of Service: DATE: 06/01/20 TIME: 12:06 Provider Note feels ok otherwise, less dyspnea, no new sxs - will cont lovenox until sure if she can start warfarin or not per cv records, but no NOAC alternatives Justifications for Admission Other Justification RODRIGO GORDILLO MD Jun 01, 2020 12:09
[2020-06-01] MEDS: FLECAINIDE ACETATE 50 MG TABLET. PO SCH (13:06)
[2020-06-01] MEDS: ATORVASTATIN CALCIUM 20 MG TABLET PO SCH (21:17)
[2020-06-01] MEDS: GABAPENTIN 300 MG CAPSULE. PO SCH (21:17)
[2020-06-02 03:00] VITALS: BP 111/61
[2020-06-02] MEDS: ALPRAZolam 0.5 MG TABLET PO PRN ×3 (05:27→20:36)
[2020-06-02 07:13] VITALS: BP 110/55
[2020-06-02] MEDS: GABAPENTIN 100 MG CAPSULE. PO SCH ×2 (08:31→13:06)
[2020-06-02] MEDS: LACTOBACILLUS RHAMNOSUS GG 1 CAPSULE. PO SCH (08:31)
[2020-06-02] MEDS: METOPROLOL SUCC 24HR ER 100 MG TAB.ER.24H. PO SCH (08:32)
[2020-06-02] MEDS: FLECAINIDE ACETATE 50 MG TABLET. PO SCH (08:32)
[2020-06-02] MEDS: PREGABALIN 75 MG CAPSULE PO SCH (08:32)
[2020-06-02] MEDS: FUROSEMIDE 20 MG TABLET PO SCH ×2 (08:33→14:00)
[2020-06-02] MEDS: POTASSIUM CHLORIDE 10 MEQ TABLET.ER. PO SCH ×2 (08:33→20:37)
[2020-06-02] MEDS: PANTOPRAZOLE 40 MG TABLET.DR. PO SCH (08:33)
[2020-06-02] MEDS: LISINOPRIL 5 MG TABLET. PO SCH (08:34)
[2020-06-02] MEDS: MULTIVITAMIN with MINERAL TABLET. PO SCH (08:34)
--- NOTE | 2020-06-02 10:44 | PDOC ---
PULMONARY PROGRESS NOTES DATE: 06/02/20 TIME: 10:41 Subjective PT. is on 4 liters N/C SOA with exertion no overnight events Vitals Vital Signs Date Time Temp Pulse Resp B/P (MAP) Pulse Ox O2 Delivery O2 Flow Rate FiO2 06/02/20 08:34 59 110/55 06/02/20 08:00 Nasal Cannula 4.0 06/02/20 07:13 96.3 22 93 96.3 ROS: No Nausea, No Chest Pain, No Abdominal Pain, No Increase Cough General: Alert, No acute distress Lungs: Clear Cardiovascular: S1 Abdomen: Soft Extremities: No Edema Labs Laboratory Tests Test 05/31/20 13:13 White Blood Count 5.7 x10^3/uL (4.0-11.0) Red Blood Count 4.87 x10^6/uL (3.50-5.40) Hemoglobin 14.6 g/dL (12.0-15.5) Hematocrit 43.9 % (36.0-47.0) Mean Corpuscular Volume 90 fL (79-100) Mean Corpuscular Hemoglobin 30 pg (25-35) Mean Corpuscular Hemoglobin Concent 33 g/dL (31-37) Red Cell Distribution Width 15.9 % (11.5-14.5) Platelet Count 204 x10^3/uL (140-400) Neutrophils (%) (Auto) 59 % (31-73) Lymphocytes (%) (Auto) 27 % (24-48) Monocytes (%) (Auto) 10 % (0-9) Eosinophils (%) (Auto) 3 % (0-3) Basophils (%) (Auto) 2 % (0-3) Neutrophils # (Auto) 3.3 x10^3/uL (1.8-7.7) Lymphocytes # (Auto) 1.5 x10^3/uL (1.0-4.8) Monocytes # (Auto) 0.5 x10^3/uL (0.0-1.1) Eosinophils # (Auto) 0.2 x10^3/uL (0.0-0.7) Basophils # (Auto) 0.1 x10^3/uL (0.0-0.2) D-Dimer (Tasha) 2.52 ug/mlFEU (0.00-0.50) Sodium Level 142 mmol/L (136-145) Potassium Level 4.4 mmol/L (3.5-5.1) Chloride Level 106 mmol/L (98-107) Carbon Dioxide Level 31 mmol/L (21-32) Anion Gap 5 (6-14) Blood Urea Nitrogen 14 mg/dL (7-20) Creatinine 0.9 mg/dL (0.6-1.0) Estimated GFR (Cockcroft-Gault) 60.9 BUN/Creatinine Ratio 16 (6-20) Glucose Level 121 mg/dL (70-99) Calcium Level 8.7 mg/dL (8.5-10.1) Total Bilirubin 0.7 mg/dL (0.2-1.0) Aspartate Amino Transf (AST/SGOT) 21 U/L (15-37) Alanine Aminotransferase (ALT/SGPT) 32 U/L (14-59) Alkaline Phosphatase 93 U/L (46-116) Lactate Dehydrogenase 271 U/L (81-234) Creatine Kinase 30 U/L (26-192) Troponin I Quantitative < 0.017 ng/mL (0.000-0.055) C-Reactive Protein, Quantitative 4.9 mg/L (0-3.3) IG-Lle-Y-Type Natriuretic Peptide 3754 pg/mL (0-449) Total Protein 6.3 g/dL (6.4-8.2) Albumin 2.7 g/dL (3.4-5.0) Albumin/Globulin Ratio 0.8 (1.0-1.7) Medications Active Scripts Medications Dose Route/Sig Max Daily Dose Days Date Category Dose Instructions Lisinopril 2.5 Mg Tablet 1 Tab PO DAILY 06/01/20 Reported Gabapentin (Gabapentin) 300 Mg Capsule 300 Mg PO QHS 06/01/20 Reported Gabapentin (Gabapentin) 100 Mg Capsule 100 Mg PO BIDACBL 06/01/20 Reported Atorvastatin Calcium 20 Mg Tablet 1 Tab PO DAILY 06/01/20 Reported Albuterol Sulfate Conc Neb Soln (Albuterol Sulfate) 2.5 Mg/0.5 Ml Vial.neb 1 Vial NEB Q6HRS PRN 05/29/19 Rx Proair Hfa (Albuterol Sulfate) 8.5 Gm Hfa.aer.ad 2 Puff IH PRN Q4-6HRS PRN 21 05/29/19 Rx Zithromax (Azithromycin) 250 Mg Tablet 1 Pkg PO UD 05/29/19 Rx Take 2 tablets on day 1 and then 1 tablet each day for the next 4 days as directed Tessalon Perle (Benzonatate) 100 Mg Capsule 100 Mg PO TID PRN 05/29/19 Rx Prednisone 20 Mg Tablet 2 Tab PO DAILY 05/29/19 Rx Start this prescription tomorrow, Thursday05/30/19 Toprol Xl (Metoprolol Succinate) 100 Mg Tab.er.24h 100 Mg PO DAILY 04/20/19 Reported Lasix (Furosemide) 20 Mg Tablet 1 Tab PO DAILY 30 04/20/19 Reported Flecainide Acetate 100 Mg Tablet 2 Tab PO DAILY 04/20/19 Reported Lyrica (Pregabalin) 150 Mg Capsule 1 Cap PO BID 04/20/19 Reported Klor-Con 10 (Potassium Chloride) 10 Meq Tablet.er 1 Tab PO BID 01/27/18 Reported Omeprazole 40 Mg Capsule.dr 1 Cap PO DAILY 11/02/17 Reported Flonase Allergy Relief (Fluticasone Propionate) 9.9 Ml [place].susp 2 Sprays NS PRN DAILY PRN 06/29/17 Reported Probiotic (Lactobacillus Combo No.11) 1 Each Cap.sprink 1 Each PO DAILY 06/29/17 Reported Multiple Vitamins (Multivitamin) 1 Each Tablet 1 Each PO DAILY 06/29/17 Reported Proair Hfa Inhaler (Albuterol Sulfate) 8.5 Gm Hfa.aer.ad 1 Puff INH PRN PRN 06/29/17 Reported [tylenol arthritis] 650 Mg PO Q8HRS 04/02/17 Reported Comments CTA chest IMPRESSION: 1. Multiple filling defects identified in the bilateral distal main pulmonary arteries and the visualized lobar, segmental branches of the pulmonary arteries including the right middle lobe, right lower lobe, left upper lobe and left lower lobe pulmonary arterial branches likely multiple pulmonary emboli. 2. Patchy airspace opacities identified in the bilateral lungs including the right upper lobe, right middle lobe, left upper lobe and bibasilar lungs likely atelectasis or infiltrates or covid pneumonia. Follow-up to resolution. 3. Moderate cardiomegaly with coronary artery calcifications. 4. Mild hepatic steatosis. Impression . IMPRESSION: 1. Acute on chronic hypoxemic respiratory failure. 2. Acute pulmonary embolism related to COVID-19 along with obesity and sedentary lifestyle. 3. Recent SARS-CoV-2 positivity, patient was at home. She tested positive 4 weeks ago, did the same. 4. Chronic obstructive pulmonary disease. 5. Chronic hypoxemic respiratory failure. 6. Hypertension. 7. Morbid obesity. 8. Multiple allergies to medications. Please see the list. SHE IS ALLERGIC TO APIXABAN AND RIVAROXABAN. She has also not been tolerant to dabigatran. Plan . PLAN: Continue oxygen supplementation to keep sats above 92%, on 4 liters N/C Continue lovenox, may do well with lovenox outpatient no need for ABX at this time COVID-19 positive 4 weeks prior PT/OT D/W EZIO POLANCO MD Jun 02, 2020 10:44
--- NOTE | 2020-06-02 11:00 | NUR ---
Patient found on floor. Used call light to state she was on the floor. Indira charge machine operator, and PRINCE Rodriguez found patient on floor next to bed with bedside commode by the bed. This RN was informed after returning to nurse station after exiting other patient's room. Saw patient sitting on floor beside bed, BP being taken. Bed alarm rechecking and consistently on. Pt still attempts to get up on her own, and sometimes appropriately calls out with call light to inform when she needs to use the bedside commode. Dr. Salcedo was notified at [phone] via phone. No apparent injuries. No complaints of pain.
[2020-06-02 11:18] VITALS: BP 93/48
--- NOTE | 2020-06-02 14:39 | NUR ---
Dr Alfaro about the consult and if pt has been on coumadin. According to the cardiology records, there is no indication that the pt has ever been on coumadin. She was on eliquis and stopped that in march of 2017. There is several notes indicating the pt has been on and stopped eliquis in the past. She thinks it may have caused an allergic reaction similar to when she took prodaxa and xeralto.
[2020-06-02 15:19] VITALS: BP 135/56
--- NOTE | 2020-06-02 18:03 | PN ---
DATE: 06/02/2020 LOCATION: She is in room 656. SUBJECTIVE: This 74-year-old white female remains hospitalized with bilateral pulmonary embolism following COVID infection 4 weeks ago. She remains on 5 liters per nasal cannula oxygen and nursing is talking about placement. Options are ongoing with the patient. OBJECTIVE: VITAL SIGNS: Stable. She is afebrile. She remains on Lovenox for pulmonary embolism, which are bilateral multiple. CHEST: Reveals distant breath sounds. HEART: Regular. ABDOMEN: Benign. IMPRESSION: 1. Acute on chronic hypoxic respiratory failure. 2. Acute pulmonary embolism, likely related to COVID-19 infection 4 weeks ago. 3. Chronic obstructive pulmonary disease. 4. Hypertension. 5. Morbid obesity. PLAN: Continue present. Lovenox is ongoing because of reported allergies to NOACS as well as WARFARIN. Placement is being explored per nursing and we will continue supportive care. She seems to currently be doing well at this current level. DARIEL MURO MD DR: CARLEY/lucille JOB#: [id number] / [id number]
--- NOTE | 2020-06-02 18:03 | RAD ---
EXAM: Bilateral lower extremity venous Doppler sonogram. HISTORY: Pain and swelling. TECHNIQUE: Clayton scale and color Doppler sonographic evaluation of the bilateral lower extremity veins with spectral waveform analysis was performed. FINDINGS: There is normal color flow, normal compressibility and there are normal spectral waveforms in the common femoral, superficial femoral, popliteal, posterior tibial and greater saphenous veins. IMPRESSION: No Doppler evidence of lower extremity deep venous thrombosis. Electronically signed by: Pema Marquez MD (06/02/2020 6:00 PM) [facility]
[2020-06-02 19:00] VITALS: BP 134/86
[2020-06-02] MEDS: ATORVASTATIN CALCIUM 20 MG TABLET PO SCH (20:36)
[2020-06-02] MEDS: GABAPENTIN 300 MG CAPSULE. PO SCH (20:37)
[2020-06-02 23:00] VITALS: BP 95/50
[2020-06-03] VITALS (7 sets, daily range): BP systolic 102–148; BP diastolic 55–77
[2020-06-03] MEDS: ACETAMINOPHEN 325 MG TABLET. PO PRN ×2 (01:27→12:31)
[2020-06-03] MEDS: PANTOPRAZOLE 40 MG TABLET.DR. PO SCH (10:05)
[2020-06-03] MEDS: MULTIVITAMIN with MINERAL TABLET. PO SCH (10:05)
[2020-06-03] MEDS: FUROSEMIDE 40 MG TABLET. PO SCH (10:05)
[2020-06-03] MEDS: POTASSIUM CHLORIDE 10 MEQ TABLET.ER. PO SCH ×2 (10:05→21:53)
[2020-06-03] MEDS: FLECAINIDE ACETATE 50 MG TABLET. PO SCH (10:05)
[2020-06-03] MEDS: LACTOBACILLUS RHAMNOSUS GG 1 CAPSULE. PO SCH (10:05)
[2020-06-03] MEDS: GABAPENTIN 100 MG CAPSULE. PO SCH ×2 (10:06→12:31)
[2020-06-03 11:19] LABS: BASO # 0.1 x10^3/uL (0.0-0.2); BASO % 1 % (0-3); EOS # 0.2 x10^3/uL (0.0-0.7); EOS % 5 % (0-3); HEMATOCRIT 45.1 % (36.0-47.0); HEMOGLOBIN 14.7 g/dL (12.0-15.5); LYMPH # 1.2 x10^3/uL (1.0-4.8); LYMPH % 24 % (24-48); MEAN CORPUSCULAR HEMOGLOBIN 30 pg (25-35); MEAN CORPUSCULAR HGB CONC 33 g/dL (31-37); MEAN CORPUSCULAR VOLUME 93 fL (79-100); MONO # 0.4 x10^3/uL (0.0-1.1); MONO % 9 % (0-9); NEUT # 2.9 x10^3/uL (1.8-7.7); NEUT % 60 % (31-73); PLATELET COUNT 160 x10^3/uL (140-400); RED BLOOD COUNT 4.87 x10^6/uL (3.50-5.40); RED CELL DISTRIBUTION WIDTH 16.5 % (11.5-14.5); WHITE BLOOD COUNT 4.7 x10^3/uL (4.0-11.0)
[2020-06-03 11:35] LABS: ALBUMIN 2.7 g/dL (3.4-5.0); ALBUMIN/GLOBULIN RATIO 0.7 (1.0-1.7); CALCIUM 9.1 mg/dL (8.5-10.1); CREATININE 0.8 mg/dL (0.6-1.0); GFR 69.7; MAGNESIUM 2.4 mg/dL (1.8-2.4); POTASSIUM 4.5 mmol/L (3.5-5.1); TOTAL BILIRUBIN 0.7 mg/dL (0.2-1.0); TOTAL PROTEIN 6.4 g/dL (6.4-8.2)
[2020-06-03] MEDS: METOPROLOL SUCC 24HR ER 100 MG TAB.ER.24H. PO SCH (12:33)
--- NOTE | 2020-06-03 12:52 | PN ---
DATE: 06/03/2020 LOCATION: She is in room 656. SUBJECTIVE: This 74-year-old white female remains hospitalized with bilateral pulmonary embolism following COVID-19 infection 4 weeks ago. She remains on 5 liters per nasal cannula oxygen and consideration for placement is ongoing. OBJECTIVE: VITAL SIGNS: Stable. She is afebrile. She remains on Lovenox for pulmonary embolism, which are bilateral and multiple and she has a long history of allergies to NOACs as well as Coumadin. CHEST: Reveals decreased breath sounds. HEART: Regular. ABDOMEN: Benign. IMPRESSION: 1. Acute on chronic hypoxic respiratory failure. 2. Acute pulmonary embolism, likely related to COVID-19 infection four weeks ago. 3. Chronic obstructive pulmonary disease. 4. Hypertension. 5. Morbid obesity. PLAN: Continue present. Placement is being explored at this point. DARIEL MURO MD DR: CARLEY/lucille JOB#: [id number] / [id number]
--- NOTE | 2020-06-03 13:15 | PDOC ---
PULMONARY PROGRESS NOTES DATE: 06/03/20 TIME: 13:14 Subjective PT. is on 4 liters N/C Out of bed to the chair today, reports she is feeling weak, at times lethargic. No shortness of breath or cough Grade fever overnight no overnight events Vitals Vital Signs Date Time Temp Pulse Resp B/P (MAP) Pulse Ox O2 Delivery O2 Flow Rate FiO2 06/03/20 12:33 74 06/03/20 11:00 99.6 35 113/77 (89) 97 Nasal Cannula 5.0 99.6 ROS: No Nausea, No Chest Pain, No Abdominal Pain, No Increase Cough General: Alert, No acute distress Lungs: Clear Cardiovascular: S1 Abdomen: Soft Extremities: No Edema Labs Laboratory Tests Test 06/02/20 13:20 06/03/20 10:30 Low Molecular Weight Heparin > 1.70 IU/mL White Blood Count 4.7 x10^3/uL (4.0-11.0) Red Blood Count 4.87 x10^6/uL (3.50-5.40) Hemoglobin 14.7 g/dL (12.0-15.5) Hematocrit 45.1 % (36.0-47.0) Mean Corpuscular Volume 93 fL (79-100) Mean Corpuscular Hemoglobin 30 pg (25-35) Mean Corpuscular Hemoglobin Concent 33 g/dL (31-37) Red Cell Distribution Width 16.5 % (11.5-14.5) Platelet Count 160 x10^3/uL (140-400) Neutrophils (%) (Auto) 60 % (31-73) Lymphocytes (%) (Auto) 24 % (24-48) Monocytes (%) (Auto) 9 % (0-9) Eosinophils (%) (Auto) 5 % (0-3) Basophils (%) (Auto) 1 % (0-3) Neutrophils # (Auto) 2.9 x10^3/uL (1.8-7.7) Lymphocytes # (Auto) 1.2 x10^3/uL (1.0-4.8) Monocytes # (Auto) 0.4 x10^3/uL (0.0-1.1) Eosinophils # (Auto) 0.2 x10^3/uL (0.0-0.7) Basophils # (Auto) 0.1 x10^3/uL (0.0-0.2) Sodium Level 141 mmol/L (136-145) Potassium Level 4.5 mmol/L (3.5-5.1) Chloride Level 101 mmol/L (98-107) Carbon Dioxide Level 38 mmol/L (21-32) Anion Gap 2 (6-14) Blood Urea Nitrogen 15 mg/dL (7-20) Creatinine 0.8 mg/dL (0.6-1.0) Estimated GFR (Cockcroft-Gault) 69.7 BUN/Creatinine Ratio 19 (6-20) Glucose Level 120 mg/dL (70-99) Calcium Level 9.1 mg/dL (8.5-10.1) Magnesium Level 2.4 mg/dL (1.8-2.4) Total Bilirubin 0.7 mg/dL (0.2-1.0) Aspartate Amino Transf (AST/SGOT) 17 U/L (15-37) Alanine Aminotransferase (ALT/SGPT) 27 U/L (14-59) Alkaline Phosphatase 85 U/L (46-116) Total Protein 6.4 g/dL (6.4-8.2) Albumin 2.7 g/dL (3.4-5.0) Albumin/Globulin Ratio 0.7 (1.0-1.7) Laboratory Tests Test 06/02/20 13:20 06/03/20 10:30 Low Molecular Weight Heparin > 1.70 IU/mL White Blood Count 4.7 x10^3/uL (4.0-11.0) Red Blood Count 4.87 x10^6/uL (3.50-5.40) Hemoglobin 14.7 g/dL (12.0-15.5) Hematocrit 45.1 % (36.0-47.0) Mean Corpuscular Volume 93 fL (79-100) Mean Corpuscular Hemoglobin 30 pg (25-35) Mean Corpuscular Hemoglobin Concent 33 g/dL (31-37) Red Cell Distribution Width 16.5 % (11.5-14.5) Platelet Count 160 x10^3/uL (140-400) Neutrophils (%) (Auto) 60 % (31-73) Lymphocytes (%) (Auto) 24 % (24-48) Monocytes (%) (Auto) 9 % (0-9) Eosinophils (%) (Auto) 5 % (0-3) Basophils (%) (Auto) 1 % (0-3) Neutrophils # (Auto) 2.9 x10^3/uL (1.8-7.7) Lymphocytes # (Auto) 1.2 x10^3/uL (1.0-4.8) Monocytes # (Auto) 0.4 x10^3/uL (0.0-1.1) Eosinophils # (Auto) 0.2 x10^3/uL (0.0-0.7) Basophils # (Auto) 0.1 x10^3/uL (0.0-0.2) Sodium Level 141 mmol/L (136-145) Potassium Level 4.5 mmol/L (3.5-5.1) Chloride Level 101 mmol/L (98-107) Carbon Dioxide Level 38 mmol/L (21-32) Anion Gap 2 (6-14) Blood Urea Nitrogen 15 mg/dL (7-20) Creatinine 0.8 mg/dL (0.6-1.0) Estimated GFR (Cockcroft-Gault) 69.7 BUN/Creatinine Ratio 19 (6-20) Glucose Level 120 mg/dL (70-99) Calcium Level 9.1 mg/dL (8.5-10.1) Magnesium Level 2.4 mg/dL (1.8-2.4) Total Bilirubin 0.7 mg/dL (0.2-1.0) Aspartate Amino Transf (AST/SGOT) 17 U/L (15-37) Alanine Aminotransferase (ALT/SGPT) 27 U/L (14-59) Alkaline Phosphatase 85 U/L (46-116) Total Protein 6.4 g/dL (6.4-8.2) Albumin 2.7 g/dL (3.4-5.0) Albumin/Globulin Ratio 0.7 (1.0-1.7) Medications Active Scripts Medications Dose Route/Sig Max Daily Dose Days Date Category Dose Instructions Lisinopril 2.5 Mg Tablet 1 Tab PO DAILY 06/01/20 Reported Gabapentin (Gabapentin) 300 Mg Capsule 300 Mg PO QHS 06/01/20 Reported Gabapentin (Gabapentin) 100 Mg Capsule 100 Mg PO BIDACBL 06/01/20 Reported Atorvastatin Calcium 20 Mg Tablet 1 Tab PO DAILY 06/01/20 Reported Albuterol Sulfate Conc Neb Soln (Albuterol Sulfate) 2.5 Mg/0.5 Ml Vial.neb 1 Vial NEB Q6HRS PRN 05/29/19 Rx Proair Hfa (Albuterol Sulfate) 8.5 Gm Hfa.aer.ad 2 Puff IH PRN Q4-6HRS PRN 21 05/29/19 Rx Zithromax (Azithromycin) 250 Mg Tablet 1 Pkg PO UD 05/29/19 Rx Take 2 tablets on day 1 and then 1 tablet each day for the next 4 days as directed Tessalon Perle (Benzonatate) 100 Mg Capsule 100 Mg PO TID PRN 05/29/19 Rx Prednisone 20 Mg Tablet 2 Tab PO DAILY 05/29/19 Rx Start this prescription tomorrow, Thursday05/30/19 Toprol Xl (Metoprolol Succinate) 100 Mg Tab.er.24h 100 Mg PO DAILY 04/20/19 Reported Lasix (Furosemide) 20 Mg Tablet 1 Tab PO DAILY 30 04/20/19 Reported Flecainide Acetate 100 Mg Tablet 2 Tab PO DAILY 04/20/19 Reported Lyrica (Pregabalin) 150 Mg Capsule 1 Cap PO BID 04/20/19 Reported Klor-Con 10 (Potassium Chloride) 10 Meq Tablet.er 1 Tab PO BID 01/27/18 Reported Omeprazole 40 Mg Capsule.dr 1 Cap PO DAILY 11/02/17 Reported Flonase Allergy Relief (Fluticasone Propionate) 9.9 Ml [place].susp 2 Sprays NS PRN DAILY PRN 06/29/17 Reported Probiotic (Lactobacillus Combo No.11) 1 Each Cap.sprink 1 Each PO DAILY 06/29/17 Reported Multiple Vitamins (Multivitamin) 1 Each Tablet 1 Each PO DAILY 06/29/17 Reported Proair Hfa Inhaler (Albuterol Sulfate) 8.5 Gm Hfa.aer.ad 1 Puff INH PRN PRN 06/29/17 Reported [tylenol arthritis] 650 Mg PO Q8HRS 04/02/17 Reported Comments CTA chest IMPRESSION: 1. Multiple filling defects identified in the bilateral distal main pulmonary arteries and the visualized lobar, segmental branches of the pulmonary arteries including the right middle lobe, right lower lobe, left upper lobe and left lower lobe pulmonary arterial branches likely multiple pulmonary emboli. 2. Patchy airspace opacities identified in the bilateral lungs including the right upper lobe, right middle lobe, left upper lobe and bibasilar lungs likely atelectasis or infiltrates or covid pneumonia. Follow-up to resolution. 3. Moderate cardiomegaly with coronary artery calcifications. 4. Mild hepatic steatosis. Impression . IMPRESSION: 1. Acute on chronic hypoxemic respiratory failure. 2. Acute pulmonary embolism related to COVID-19 along with obesity and sedentary lifestyle. 3. Recent SARS-CoV-2 positivity, patient was at home. She tested positive 4 weeks ago, did the same. 4. Chronic obstructive pulmonary disease. 5. Chronic hypoxemic respiratory failure. 6. Hypertension. 7. Morbid obesity. 8. Multiple allergies to medications. Please see the list. SHE IS ALLERGIC TO APIXABAN AND RIVAROXABAN. She has also not been tolerant to dabigatran. Plan . PLAN: Check ABG, discussed with RN. Continue oxygen supplementation to keep sats above 92%, on 4 liters N/C, wean as tolerated 6-minute walk prior to discharge Continue lovenox, may do well with lovenox outpatient Symptomatic treatment of fever no need for ABX at this time Bilateral lower extremity ultrasound negative for DVT COVID-19 positive 4 weeks prior PT/OT--out of bed as tolerated D/W EZIO POLANCO MD Jun 03, 2020 13:15
--- NOTE | 2020-06-03 13:43 | RAD ---
EXAM: Pelvis and bilateral hips, 3 views. HISTORY: Pain. COMPARISON: None. FINDINGS: A frontal view of the pelvis and frog-leg views of both hips are obtained. There is no frac ture, dislocation or subluxation. The femoral heads are normal in configuration. There is degenerativ e change at the lumbosacral junction. IMPRESSION: No acute osseous finding. Electronically signed by: Pema Marquez MD (06/03/2020 1:40 PM) [facility]
[2020-06-03] MEDS: LISINOPRIL 5 MG TABLET. PO SCH (14:09)
[2020-06-03] MEDS: FUROSEMIDE 20 MG TABLET PO SCH (14:20)
--- NOTE | 2020-06-03 17:35 | PDOC2 ---
CONSULT Date of Consult Date of Consult DATE: 06/03/20 TIME: 17:26 Reason for Consult Reason for Consult: Paroxysmal atrial fibrillation, anticoagulation Referring Physician Referring Physician: Dr. Cavanaugh Identification/Chief Complaint Chief Complaint Shortness of breath. Source Source: Chart review, Patient History of Present Illness Reason for Visit: The patient is a 74-year-old female who tested positive for Covid 4 weeks ago who was admitted through the emergency room on 05/31/2020 for increasing shortness of breath. Her work-up found on CT scanning multiple pulmonary emboli and she has been treated with Lovenox. Additionally she has a history of COPD and has been followed by the pulmonary service. She has been followed in the cardiology office for paroxysmal atrial fibrillation. On reviewing old records on 03/23/2017 the patient states that she had a severe rash from Eliquis and it was discontinued. She also reported allergies to Xarelto and Pradaxa. At that time there was some question about the patient being placed on Coumadin although there is no documentation that she was. Her next visits in 2018 showed the patient was off all anticoagulation and she continued to be treated with beta- blockers and prn flecainide for paroxysmal atrial fibrillation. Past Medical History Cardiovascular: AFIB, HTN, Hyperlipidemia Pulmonary: COPD, Other CENTRAL NERVOUS SYSTEM: TIA GI: GERD Heme/Onc: No pertinent hx Hepatobiliary: No pertinent hx Psych: Anxiety Musculoskeletal: Osteoarthritis Rheumatologic: No pertinent hx Infectious disease: No pertinent hx Renal/: No pertinent hx Endocrine: Other Past Surgical History Past Surgical History: Cataract Removal, Tubal Ligation, Hysterectomy Family History Family History: Hypertension Social History Quit ALCOHOL: none Drugs: None Lives: with Family Current Problem List Problem List Problems Medical Problems: (1) COVID-19 Status: Acute (2) Pulmonary embolism Status: Acute (3) Respiratory failure with hypoxia Status: Acute Current Medications Current Medications Current Medications Dexamethasone Sodium Phosphate (Decadron) 10 mg 1X ONCE IVP Last administered on 05/31/20at 14:51; Start 05/31/20 at 14:15; Stop 05/31/20 at 14:16; Status DC Ceftriaxone Sodium (Rocephin) 1 gm 1X ONCE IVP Last administered on 05/31/20at 14:52; Start 05/31/20 at 14:15; Stop 05/31/20 at 14:16; Status DC Iohexol (Omnipaque 350 Mg/ml) 100 ml 1X ONCE IV Last administered on 05/31/20at 14:43; Start 05/31/20 at 14:30; Stop 05/31/20 at 14:31; Status DC Info (CONTRAST GIVEN -- Rx MONITORING) 1 each PRN DAILY PRN MC SEE COMMENTS; Start 05/31/20 at 14:30; Stop 06/02/20 at 14:29; Status DC Oxycodone/ Acetaminophen (Percocet 5/325) 1 tab 1X ONCE PO Last administered on 05/31/20at 14:51; Start 05/31/20 at 14:30; Stop 05/31/20 at 14:31; Status DC Enoxaparin Sodium (Lovenox 100mg Syringe) 100 mg 1X ONCE SQ Last administered on 05/31/20at 16:29; Start 05/31/20 at 15:30; Stop 05/31/20 at 15:31; Status DC Enoxaparin Sodium (Lovenox Per Pharmacy Treatment Dosing) 1 each PRN DAILY PRN MC SEE COMMENTS; Start 06/01/20 at 09:45 Enoxaparin Sodium (Lovenox 120mg Syringe) 120 mg Q12HR SQ Last administered on 06/02/20at 08:31; Start 06/01/20 at 11:00; Stop 06/02/20 at 16:13; Status DC Atorvastatin Calcium (Lipitor) 20 mg QHS PO Last administered on 06/02/20at 2 0:36; Start 06/01/20 at 21:00 Furosemide (Lasix) 20 mg DAILY PO Last administered on 06/02/20at 08:33; Start 06/01/20 at 12:00; Stop 06/02/20 at 10:54; Status DC Gabapentin (Neurontin) 100 mg BIDACBL PO Last administered on 06/03/20at 12:31; Start 06/01/20 at 11:30 Gabapentin (Neurontin) 300 mg QHS PO Last administered on 06/02/20at 20:37; Start 06/01/20 at 21:00 Metoprolol Succinate (Toprol Xl) 100 mg DAILY PO Last administered on 06/03/20at 12:33; Start 06/01/20 at 12:00 Potassium Chloride (Klor-Con) 10 meq BID PO Last administered on 06/03/20at 10:05; Start 06/01/20 at 12:00 Flecainide Acetate (Tambocor) 200 mg DAILY PO Last administered on 06/03/20 10:05; Start 06/01/20 at 12:00 Fluticasone Propionate (Flonase) 2 spray PRN DAILY PRN NS ALLERGIES; Start 06/01/20 at 10:45 Lactobacillus Rhamnosus (Culturelle) 1 cap DAILY PO Last administered on 06/03/20at 10:05; Start 06/01/20 at 12:00 Lisinopril (Prinivil) 2.5 mg DAILY PO Last administered on 06/02/20at 08:34; Start 06/02/20 at 09:00 Multivitamins (Thera M Plus) 1 tab DAILY PO Last administered on 06/03/20 10:05; Start 06/01/20 at 12:00 Pantoprazole Sodium (Protonix) 40 mg DAILYAC PO Last administered on 06/03/20at 10:05; Start 06/01/20 at 11:30 Pregabalin (Lyrica) 150 mg BID PO Last administered on 06/02/20at 08:32; Start at 12:00; Stop 06/02/20 at 10:27; Status DC Acetaminophen (Tylenol) 650 mg PRN Q6HRS PRN PO MILD PAIN / TEMP > 100.3'F Last administered on 06/03/20at 12:31; Start 06/01/20 at 10:45 Albuterol Sulfate (Ventolin Neb Soln) 2.5 mg PRN Q2HRS PRN INH SHORTNESS OF BREATH; Start 06/01/20 at 12:00 Alprazolam (Xanax) 0.5 mg PRN TID PRN PO ANXIETY / AGITATION Last administered on 06/02/20at 20:36; Start 06/02/20 at 05:00 Furosemide (Lasix) 20 mg DAILY@1400 PO Last administered on 06/03/20at 14:20; Start 06/02/20 at 14:00 Furosemide (Lasix) 40 mg DAILY PO Last administered on 06/03/20at 10:05; Start 06/03/20 at 09:00 Enoxaparin Sodium (Lovenox 100mg Syringe) 90 mg Q12HR SQ Last administered on 1/3/21at 10:06; Start 06/02/20 at 21:00 Active Scripts Active Albuterol Sulfate Conc Neb Soln (Albuterol Sulfate) 2.5 Mg/0.5 Ml Vial.neb 1 Vial NEB Q6HRS PRN Proair Hfa (Albuterol Sulfate) 8.5 Gm Hfa.aer.ad 2 Puff IH PRN Q4-6HRS PRN 21 Days Zithromax (Azithromycin) 250 Mg Tablet 1 Pkg PO UD Take 2 tablets on day 1 and then 1 tablet each day for the next 4 days as directed Tessalon Perle (Benzonatate) 100 Mg Capsule 100 Mg PO TID PRN Prednisone 20 Mg Tablet 2 Tab PO DAILY Start this prescription tomorrow, Thursday05/30/19 Reported Lisinopril 2.5 Mg Tablet 1 Tab PO DAILY Gabapentin (Gabapentin) 300 Mg Capsule 300 Mg PO QHS Gabapentin (Gabapentin) 100 Mg Capsule 100 Mg PO BIDACBL Atorvastatin Calcium 20 Mg Tablet 1 Tab PO DAILY Toprol Xl (Metoprolol Succinate) 100 Mg Tab.er.24h 100 Mg PO DAILY Lasix (Furosemide) 20 Mg Tablet 1 Tab PO DAILY 30 Days Flecainide Acetate 100 Mg Tablet 2 Tab PO DAILY Lyrica (Pregabalin) 150 Mg Capsule 1 Cap PO BID Klor-Con 10 (Potassium Chloride) 10 Meq Tablet.er 1 Tab PO BID Omeprazole 40 Mg Capsule.dr 1 Cap PO DAILY Flonase Allergy Relief (Fluticasone Propionate) 9.9 Ml [place].susp 2 Sprays NS PRN DAILY PRN Probiotic (Lactobacillus Combo No.11) 1 Each Cap.sprink 1 Each PO DAILY Multiple Vitamins (Multivitamin) 1 Each Tablet 1 Each PO DAILY Proair Hfa Inhaler (Albuterol Sulfate) 8.5 Gm Hfa.aer.ad 1 Puff INH PRN PRN [tylenol arthritis] 650 Mg PO Q8HRS Allergies Allergies: Coded Allergies: Anesthetics - Amide Type - Select A (Verified Allergy, Intermediate, broke out with hives - (all Juan Carlos), 06/30/17) Anesthetics - Reny Type- Parabens (Verified Allergy, Intermediate, 06/30/17) Penicillins (Verified Allergy, Intermediate, RASH, 06/30/17) Sulfa (Sulfonamide Antibiotics) (Verified Allergy, Intermediate, RASH, 06/30/17) apixaban (Verified Allergy, Intermediate, POSSIBLE RASH (MAY ALSO BE FROM DRONEDARONE), 04/21/19) dabigatran etexilate (Verified Allergy, Intermediate, Rash, 06/30/17) welts dronedarone (Verified Allergy, Intermediate, POSSIBLE RASH (MAY ALSO BE FROM ELIQUIS), 06/30/17) rivaroxaban (Verified Allergy, Intermediate, 06/30/17) warfarin (Verified Allergy, Intermediate, Hives, 06/30/17) ROS General: YES: Fatigue Respiratory: YES: Shortness of breath, SOB with excertion Physical Exam General: mild distress Lungs: Other (Mildly decreased breath sounds) Heart: Regular rate Abdomen: Normal bowel sounds Vitals VITALS Vital Signs Date Time Temp Pulse Resp B/P (MAP) Pulse Ox O2 Delivery O2 Flow Rate FiO2 06/03/20 15:00 98.2 60 19 111/55 (73) 94 Nasal Cannula 5.0 98.2 Labs Labs Laboratory Tests Test 06/02/20 13:20 06/03/20 10:30 Low Molecular Weight Heparin > 1.70 IU/mL White Blood Count 4.7 x10^3/uL (4.0-11.0) Red Blood Count 4.87 x10^6/uL (3.50-5.40) Hemoglobin 14.7 g/dL (12.0-15.5) Hematocrit 45.1 % (36.0-47.0) Mean Corpuscular Volume 93 fL (79-100) Mean Corpuscular Hemoglobin 30 pg (25-35) Mean Corpuscular Hemoglobin Concent 33 g/dL (31-37) Red Cell Distribution Width 16.5 % (11.5-14.5) Platelet Count 160 x10^3/uL (140-400) Neutrophils (%) (Auto) 60 % (31-73) Lymphocytes (%) (Auto) 24 % (24-48) Monocytes (%) (Auto) 9 % (0-9) Eosinophils (%) (Auto) 5 % (0-3) Basophils (%) (Auto) 1 % (0-3) Neutrophils # (Auto) 2.9 x10^3/uL (1.8-7.7) Lymphocytes # (Auto) 1.2 x10^3/uL (1.0-4.8) Monocytes # (Auto) 0.4 x10^3/uL (0.0-1.1) Eosinophils # (Auto) 0.2 x10^3/uL (0.0-0.7) Basophils # (Auto) 0.1 x10^3/uL (0.0-0.2) Sodium Level 141 mmol/L (136-145) Potassium Level 4.5 mmol/L (3.5-5.1) Chloride Level 101 mmol/L (98-107) Carbon Dioxide Level 38 mmol/L (21-32) Anion Gap 2 (6-14) Blood Urea Nitrogen 15 mg/dL (7-20) Creatinine 0.8 mg/dL (0.6-1.0) Estimated GFR (Cockcroft-Gault) 69.7 BUN/Creatinine Ratio 19 (6-20) Glucose Level 120 mg/dL (70-99) Calcium Level 9.1 mg/dL (8.5-10.1) Magnesium Level 2.4 mg/dL (1.8-2.4) Total Bilirubin 0.7 mg/dL (0.2-1.0) Aspartate Amino Transf (AST/SGOT) 17 U/L (15-37) Alanine Aminotransferase (ALT/SGPT) 27 U/L (14-59) Alkaline Phosphatase 85 U/L (46-116) Total Protein 6.4 g/dL (6.4-8.2) Albumin 2.7 g/dL (3.4-5.0) Albumin/Globulin Ratio 0.7 (1.0-1.7) Laboratory Tests Test 06/03/20 10:30 White Blood Count 4.7 x10^3/uL (4.0-11.0) Red Blood Count 4.87 x10^6/uL (3.50-5.40) Hemoglobin 14.7 g/dL (12.0-15.5) Hematocrit 45.1 % (36.0-47.0) Mean Corpuscular Volume 93 fL (79-100) Mean Corpuscular Hemoglobin 30 pg (25-35) Mean Corpuscular Hemoglobin Concent 33 g/dL (31-37) Red Cell Distribution Width 16.5 % (11.5-14.5) Platelet Count 160 x10^3/uL (140-400) Neutrophils (%) (Auto) 60 % (31-73) Lymphocytes (%) (Auto) 24 % (24-48) Monocytes (%) (Auto) 9 % (0-9) Eosinophils (%) (Auto) 5 % (0-3) Basophils (%) (Auto) 1 % (0-3) Neutrophils # (Auto) 2.9 x10^3/uL (1.8-7.7) Lymphocytes # (Auto) 1.2 x10^3/uL (1.0-4.8) Monocytes # (Auto) 0.4 x10^3/uL (0.0-1.1) Eosinophils # (Auto) 0.2 x10^3/uL (0.0-0.7) Basophils # (Auto) 0.1 x10^3/uL (0.0-0.2) Sodium Level 141 mmol/L (136-145) Potassium Level 4.5 mmol/L (3.5-5.1) Chloride Level 101 mmol/L (98-107) Carbon Dioxide Level 38 mmol/L (21-32) Anion Gap 2 (6-14) Blood Urea Nitrogen 15 mg/dL (7-20) Creatinine 0.8 mg/dL (0.6-1.0) Estimated GFR (Cockcroft-Gault) 69.7 BUN/Creatinine Ratio 19 (6-20) Glucose Level 120 mg/dL (70-99) Calcium Level 9.1 mg/dL (8.5-10.1) Magnesium Level 2.4 mg/dL (1.8-2.4) Total Bilirubin 0.7 mg/dL (0.2-1.0) Aspartate Amino Transf (AST/SGOT) 17 U/L (15-37) Alanine Aminotransferase (ALT/SGPT) 27 U/L (14-59) Alkaline Phosphatase 85 U/L (46-116) Total Protein 6.4 g/dL (6.4-8.2) Albumin 2.7 g/dL (3.4-5.0) Albumin/Globulin Ratio 0.7 (1.0-1.7) Images Images CT scan of the chest showed multiple pulmonary emboli. Assessment/Plan Assessment/Plan 1. Multiple pulmonary emboli. Patient has been treated with Lovenox. Old cardiac records report allergies to anticoagulation medications as noted above. We have no report regarding any possible allergies to Coumadin. We will continue present treatment. Followed by pulmonary. 2. Covid infection with positive testing 4 weeks ago. Agree with present treatment. 3. Paroxysmal atrial fibrillation. Patient is in a sinus rhythm. Continue baseline medications. 4. Hypertension. Controlled. 5. Hyperlipidemia. Continue present treatments. Thank you for allowing us to participate in the care of your patient EMILY HARRISON MD Jun 03, 2020 17:35
[2020-06-03 18:35] LABS: BASE EXCESS ABG 9 mmol/L (-3-3); HCO3 ABG 38 mmol/L (21-28); PO2 ABG 70 mmHg (65-108); SAT O2 ABG 92 % (92-99)
[2020-06-03 18:42] LABS: FIO2 ABG 32%; PCO2 ABG 72 mmHg (35-46)
[2020-06-03] MEDS: ATORVASTATIN CALCIUM 20 MG TABLET PO SCH (21:53)
[2020-06-03] MEDS: ALPRAZolam 0.5 MG TABLET PO PRN (21:53)
[2020-06-03] MEDS: GABAPENTIN 300 MG CAPSULE. PO SCH (21:54)
[2020-06-04 03:00] VITALS: BP 121/67
[2020-06-04 07:00] VITALS: BP 114/55
--- NOTE | 2020-06-04 08:23 | PDOC ---
Provider Note Date of Service: DATE: 06/04/20 TIME: 08:21 Provider Note used bipap re CO2 retention, is off cpap at home re intolerance- exam and vitals same- she has NEVER had warfarin and is willing to try , so added and follow inr 6, lovenox until then - will need rehab- she still wishes to be full code as discussed Justifications for Admission Other Justification RODRIGO GORDILLO MD Jun 04, 2020 08:23
[2020-06-04] MEDS: POTASSIUM CHLORIDE 10 MEQ TABLET.ER. PO SCH ×2 (08:34→21:56)
[2020-06-04] MEDS: MULTIVITAMIN with MINERAL TABLET. PO SCH (08:34)
[2020-06-04] MEDS: PANTOPRAZOLE 40 MG TABLET.DR. PO SCH (08:34)
[2020-06-04] MEDS: FUROSEMIDE 40 MG TABLET. PO SCH (08:34)
[2020-06-04] MEDS: FLECAINIDE ACETATE 50 MG TABLET. PO SCH (08:34)
[2020-06-04] MEDS: LACTOBACILLUS RHAMNOSUS GG 1 CAPSULE. PO SCH (08:34)
[2020-06-04] MEDS: LISINOPRIL 5 MG TABLET. PO SCH (08:34)
[2020-06-04] MEDS: METOPROLOL SUCC 24HR ER 100 MG TAB.ER.24H. PO SCH (08:35)
[2020-06-04] MEDS: GABAPENTIN 100 MG CAPSULE. PO SCH ×2 (08:35→11:39)
[2020-06-04 11:00] VITALS: BP 106/51
--- NOTE | 2020-06-04 11:35 | PDOC ---
PULMONARY PROGRESS NOTES DATE: 06/04/20 TIME: 11:35 Subjective Patient did not like BiPAP overnight, now on nasal cannula oxygen PT. is on 4 liters N/C No shortness of breath or cough Vitals Vital Signs Date Time Temp Pulse Resp B/P (MAP) Pulse Ox O2 Delivery O2 Flow Rate FiO2 06/04/20 08:35 65 121/67 06/04/20 08:00 Nasal Cannula 3.0 06/04/20 07:00 99.1 19 93 99.1 ROS: No Nausea, No Chest Pain, No Abdominal Pain, No Increase Cough General: Alert, No acute distress Lungs: Clear Cardiovascular: S1 Abdomen: Soft Extremities: No Edema Labs Laboratory Tests Test 06/02/20 13:20 06/03/20 10:30 06/03/20 18:24 Low Molecular Weight Heparin > 1.70 IU/mL White Blood Count 4.7 x10^3/uL (4.0-11.0) Red Blood Count 4.87 x10^6/uL (3.50-5.40) Hemoglobin 14.7 g/dL (12.0-15.5) Hematocrit 45.1 % (36.0-47.0) Mean Corpuscular Volume 93 fL (79-100) Mean Corpuscular Hemoglobin 30 pg (25-35) Mean Corpuscular Hemoglobin Concent 33 g/dL (31-37) Red Cell Distribution Width 16.5 % (11.5-14.5) Platelet Count 160 x10^3/uL (140-400) Neutrophils (%) (Auto) 60 % (31-73) Lymphocytes (%) (Auto) 24 % (24-48) Monocytes (%) (Auto) 9 % (0-9) Eosinophils (%) (Auto) 5 % (0-3) Basophils (%) (Auto) 1 % (0-3) Neutrophils # (Auto) 2.9 x10^3/uL (1.8-7.7) Lymphocytes # (Auto) 1.2 x10^3/uL (1.0-4.8) Monocytes # (Auto) 0.4 x10^3/uL (0.0-1.1) Eosinophils # (Auto) 0.2 x10^3/uL (0.0-0.7) Basophils # (Auto) 0.1 x10^3/uL (0.0-0.2) Sodium Level 141 mmol/L (136-145) Potassium Level 4.5 mmol/L (3.5-5.1) Chloride Level 101 mmol/L (98-107) Carbon Dioxide Level 38 mmol/L (21-32) Anion Gap 2 (6-14) Blood Urea Nitrogen 15 mg/dL (7-20) Creatinine 0.8 mg/dL (0.6-1.0) Estimated GFR (Cockcroft-Gault) 69.7 BUN/Creatinine Ratio 19 (6-20) Glucose Level 120 mg/dL (70-99) Calcium Level 9.1 mg/dL (8.5-10.1) Magnesium Level 2.4 mg/dL (1.8-2.4) Total Bilirubin 0.7 mg/dL (0.2-1.0) Aspartate Amino Transf (AST/SGOT) 17 U/L (15-37) Alanine Aminotransferase (ALT/SGPT) 27 U/L (14-59) Alkaline Phosphatase 85 U/L (46-116) Total Protein 6.4 g/dL (6.4-8.2) Albumin 2.7 g/dL (3.4-5.0) Albumin/Globulin Ratio 0.7 (1.0-1.7) O2 Saturation 92 % (92-99) Arterial Blood pH 7.33 (7.35-7.45) Arterial Blood pCO2 at Patient Temp 72 mmHg (35-46) Arterial Blood pO2 at Patient Temp 70 mmHg (65-108) Arterial Blood HCO3 38 mmol/L (21-28) Arterial Blood Base Excess 9 mmol/L (-3-3) FiO2 32% Laboratory Tests Test 06/03/20 18:24 O2 Saturation 92 % (92-99) Arterial Blood pH 7.33 (7.35-7.45) Arterial Blood pCO2 at Patient Temp 72 mmHg (35-46) Arterial Blood pO2 at Patient Temp 70 mmHg (65-108) Arterial Blood HCO3 38 mmol/L (21-28) Arterial Blood Base Excess 9 mmol/L (-3-3) FiO2 32% Medications Active Scripts Medications Dose Route/Sig Max Daily Dose Days Date Category Dose Instructions Lisinopril 2.5 Mg Tablet 1 Tab PO DAILY 06/01/20 Reported Gabapentin (Gabapentin) 300 Mg Capsule 300 Mg PO QHS 06/01/20 Reported Gabapentin (Gabapentin) 100 Mg Capsule 100 Mg PO BIDACBL 06/01/20 Reported Atorvastatin Calcium 20 Mg Tablet 1 Tab PO DAILY 06/01/20 Reported Albuterol Sulfate Conc Neb Soln (Albuterol Sulfate) 2.5 Mg/0.5 Ml Vial.neb 1 Vial NEB Q6HRS PRN 05/29/19 Rx Proair Hfa (Albuterol Sulfate) 8.5 Gm Hfa.aer.ad 2 Puff IH PRN Q4-6HRS PRN 21 05/29/19 Rx Zithromax (Azithromycin) 250 Mg Tablet 1 Pkg PO UD 05/29/19 Rx Take 2 tablets on day 1 and then 1 tablet each day for the next 4 days as directed Tessalon Perle (Benzonatate) 100 Mg Capsule 100 Mg PO TID PRN 05/29/19 Rx Prednisone 20 Mg Tablet 2 Tab PO DAILY 05/29/19 Rx Start this prescription tomorrow, Thursday05/30/19 Toprol Xl (Metoprolol Succinate) 100 Mg Tab.er.24h 100 Mg PO DAILY 04/20/19 Reported Lasix (Furosemide) 20 Mg Tablet 1 Tab PO DAILY 30 04/20/19 Reported Flecainide Acetate 100 Mg Tablet 2 Tab PO DAILY 04/20/19 Reported Lyrica (Pregabalin) 150 Mg Capsule 1 Cap PO BID 04/20/19 Reported Klor-Con 10 (Potassium Chloride) 10 Meq Tablet.er 1 Tab PO BID 01/27/18 Reported Omeprazole 40 Mg Capsule.dr 1 Cap PO DAILY 11/02/17 Reported Flonase Allergy Relief (Fluticasone Propionate) 9.9 Ml [place].susp 2 Sprays NS PRN DAILY PRN 06/29/17 Reported Probiotic (Lactobacillus Combo No.11) 1 Each Cap.sprink 1 Each PO DAILY 06/29/17 Reported Multiple Vitamins (Multivitamin) 1 Each Tablet 1 Each PO DAILY 06/29/17 Reported Proair Hfa Inhaler (Albuterol Sulfate) 8.5 Gm Hfa.aer.ad 1 Puff INH PRN PRN 06/29/17 Reported [tylenol arthritis] 650 Mg PO Q8HRS 04/02/17 Reported Comments CTA chest IMPRESSION: 1. Multiple filling defects identified in the bilateral distal main pulmonary arteries and the visualized lobar, segmental branches of the pulmonary arteries including the right middle lobe, right lower lobe, left upper lobe and left lower lobe pulmonary arterial branches likely multiple pulmonary emboli. 2. Patchy airspace opacities identified in the bilateral lungs including the right upper lobe, right middle lobe, left upper lobe and bibasilar lungs likely atelectasis or infiltrates or covid pneumonia. Follow-up to resolution. 3. Moderate cardiomegaly with coronary artery calcifications. 4. Mild hepatic steatosis. Impression . IMPRESSION: 1. Acute on chronic hypoxemic/hypercapnic respiratory failure. 2. Acute pulmonary embolism related to COVID-19 along with obesity and sedentary lifestyle. 3. Recent SARS-CoV-2 positivity, patient was at home. She tested positive 4 weeks ago, did the same. 4. Chronic obstructive pulmonary disease. 5. Chronic hypoxemic respiratory failure. 6. Hypertension. 7. Morbid obesity. 8. Multiple allergies to medications. Please see the list. SHE IS ALLERGIC TO APIXABAN AND RIVAROXABAN. She has also not been tolerant to dabigatran. Plan . Agree with Dr. Salcedo trial of warfarin Patient intolerant to BiPAP discontinued Avoid increasing oxygen supplementation Continue oxygen supplementation to keep sats above 92%, on 4 liters N/C, wean as tolerated 6-minute walk prior to discharge no need for ABX at this time Bilateral lower extremity ultrasound negative for DVT COVID-19 positive 4 weeks prior PT/OT--out of bed as tolerated D/W EZIO POLANCO MD Jun 04, 2020 11:35
[2020-06-04 11:48] LABS: PROTHROMBIN TIME PATIENT 13.5 SEC (11.7-14.0)
--- NOTE | 2020-06-04 13:21 | NUR ---
NORBERTO following for discharge planning. Spoke with RN and reviewed chart. NORBERTO consulted to assist pt with referral to a SNU. PT recommendation is SNU. Pt on , COVID positive. Spoke with pt and pt's spouse Casey ([phone]). [facility] their [facility]. Patient choice of vendor form completed. Addendum: 06/04/20 at 1539 by GAVIN THORNTON Request for authorization submitted to [facility] today, 06/04 per Katie with [facility]. [facility] is no long doing automatic SNU approvals for COVID positive patients. NORBERTO following.
[2020-06-04 15:00] VITALS: BP 93/58
[2020-06-04] MEDS ORDERED: WARFARIN 5 MG TABLET. PO SCH (16:00)
--- NOTE | 2020-06-04 16:00 | NUR ---
Updated [facility] insurance information from daughter ID # [id number] Group # [id number]
--- NOTE | 2020-06-04 16:04 | NUR ---
Talked to Pt's daughter on the phone. Pt is allergic to warfarin, called Dr. Rashid's office to let them know. I also added it to the Pt's allergy list.
[2020-06-04] MEDS: FUROSEMIDE 20 MG TABLET PO SCH (16:28)
[2020-06-04 19:30] VITALS: BP 104/58
[2020-06-04] MEDS: ALPRAZolam 0.5 MG TABLET PO PRN (21:55)
[2020-06-04] MEDS: ATORVASTATIN CALCIUM 20 MG TABLET PO SCH (21:56)
[2020-06-04] MEDS: GABAPENTIN 300 MG CAPSULE. PO SCH (21:58)
[2020-06-04 23:00] VITALS: BP 100/57
[2020-06-05 03:00] VITALS: BP 91/52
[2020-06-05 07:00] VITALS: BP 126/67
--- NOTE | 2020-06-05 08:31 | PDOC ---
Provider Note Date of Service: DATE: 06/05/20 TIME: 08:29 Provider Note pt was not given warfarin as ordered, she has never had same and is not known to be allergic- ordered again to allow her to get off shots yoanna- rehab pending, hold lisin and lasix re hypotension Justifications for Admission Other Justification RODRIGO GORDILLO MD Jun 05, 2020 08:31
[2020-06-05] MEDS: WARFARIN 5 MG TABLET. PO SCH (08:54)
[2020-06-05] MEDS: GABAPENTIN 100 MG CAPSULE. PO SCH ×2 (08:54→12:13)
[2020-06-05] MEDS: LACTOBACILLUS RHAMNOSUS GG 1 CAPSULE. PO SCH (08:54)
[2020-06-05] MEDS: PANTOPRAZOLE 40 MG TABLET.DR. PO SCH (08:55)
[2020-06-05] MEDS: MULTIVITAMIN with MINERAL TABLET. PO SCH (08:55)
[2020-06-05] MEDS: METOPROLOL SUCC 24HR ER 100 MG TAB.ER.24H. PO SCH (08:55)
[2020-06-05] MEDS: ACETAMINOPHEN 325 MG TABLET. PO PRN (08:55)
[2020-06-05] MEDS: FLECAINIDE ACETATE 50 MG TABLET. PO SCH (09:30)
--- NOTE | 2020-06-05 10:46 | PDOC ---
PULMONARY PROGRESS NOTES DATE: 06/05/20 TIME: 10:43 Subjective Patient intolerant to BiPAP , on nasal cannula oxygen 3 litres No shortness of breath or cough Vitals Vital Signs Date Time Temp Pulse Resp B/P (MAP) Pulse Ox O2 Delivery O2 Flow Rate FiO2 06/05/20 09:30 58 126/67 06/05/20 08:53 93 Nasal Cannula 4.0 06/05/20 07:00 99.1 36 99.1 ROS: No Nausea, No Chest Pain, No Abdominal Pain, No Increase Cough General: Alert, No acute distress Lungs: Clear Cardiovascular: S1 Abdomen: Soft Extremities: No Edema Labs Laboratory Tests Test 06/03/20 12:45 06/03/20 18:24 06/04/20 11:02 Coronavirus (PCR) Not detected (Not Detected) O2 Saturation 92 % (92-99) Arterial Blood pH 7.33 (7.35-7.45) Arterial Blood pCO2 at Patient Temp 72 mmHg (35-46) Arterial Blood pO2 at Patient Temp 70 mmHg (65-108) Arterial Blood HCO3 38 mmol/L (21-28) Arterial Blood Base Excess 9 mmol/L (-3-3) FiO2 32% Prothrombin Time 13.5 SEC (11.7-14.0) Prothromb Time International Ratio 1.1 (0.8-1.1) Laboratory Tests Test 06/04/20 11:02 Prothrombin Time 13.5 SEC (11.7-14.0) Prothromb Time International Ratio 1.1 (0.8-1.1) Medications Active Scripts Medications Dose Route/Sig Max Daily Dose Days Date Category Dose Instructions Lisinopril 2.5 Mg Tablet 1 Tab PO DAILY 06/01/20 Reported Gabapentin (Gabapentin) 300 Mg Capsule 300 Mg PO QHS 06/01/20 Reported Gabapentin (Gabapentin) 100 Mg Capsule 100 Mg PO BIDACBL 06/01/20 Reported Atorvastatin Calcium 20 Mg Tablet 1 Tab PO DAILY 06/01/20 Reported Albuterol Sulfate Conc Neb Soln (Albuterol Sulfate) 2.5 Mg/0.5 Ml Vial.neb 1 Vial NEB Q6HRS PRN 05/29/19 Rx Proair Hfa (Albuterol Sulfate) 8.5 Gm Hfa.aer.ad 2 Puff IH PRN Q4-6HRS PRN 21 05/29/19 Rx Zithromax (Azithromycin) 250 Mg Tablet 1 Pkg PO UD 05/29/19 Rx Take 2 tablets on day 1 and then 1 tablet each day for the next 4 days as directed Tessalon Perle (Benzonatate) 100 Mg Capsule 100 Mg PO TID PRN 05/29/19 Rx Prednisone 20 Mg Tablet 2 Tab PO DAILY 05/29/19 Rx Start this prescription tomorrow, Thursday05/30/19 Toprol Xl (Metoprolol Succinate) 100 Mg Tab.er.24h 100 Mg PO DAILY 04/20/19 Reported Lasix (Furosemide) 20 Mg Tablet 1 Tab PO DAILY 30 04/20/19 Reported Flecainide Acetate 100 Mg Tablet 2 Tab PO DAILY 04/20/19 Reported Lyrica (Pregabalin) 150 Mg Capsule 1 Cap PO BID 04/20/19 Reported Klor-Con 10 (Potassium Chloride) 10 Meq Tablet.er 1 Tab PO BID 01/27/18 Reported Omeprazole 40 Mg Capsule.dr 1 Cap PO DAILY 11/02/17 Reported Flonase Allergy Relief (Fluticasone Propionate) 9.9 Ml [place].susp 2 Sprays NS PRN DAILY PRN 06/29/17 Reported Probiotic (Lactobacillus Combo No.11) 1 Each Cap.sprink 1 Each PO DAILY 06/29/17 Reported Multiple Vitamins (Multivitamin) 1 Each Tablet 1 Each PO DAILY 06/29/17 Reported Proair Hfa Inhaler (Albuterol Sulfate) 8.5 Gm Hfa.aer.ad 1 Puff INH PRN PRN 06/29/17 Reported [tylenol arthritis] 650 Mg PO Q8HRS 04/02/17 Reported Comments CTA chest IMPRESSION: 1. Multiple filling defects identified in the bilateral distal main pulmonary arteries and the visualized lobar, segmental branches of the pulmonary arteries including the right middle lobe, right lower lobe, left upper lobe and left lower lobe pulmonary arterial branches likely multiple pulmonary emboli. 2. Patchy airspace opacities identified in the bilateral lungs including the right upper lobe, right middle lobe, left upper lobe and bibasilar lungs likely atelectasis or infiltrates or covid pneumonia. Follow-up to resolution. 3. Moderate cardiomegaly with coronary artery calcifications. 4. Mild hepatic steatosis. Impression . IMPRESSION: 1. Acute on chronic hypoxemic/hypercapnic respiratory failure. 2. Acute pulmonary embolism related to COVID-19 along with obesity and sedentary lifestyle. 3. Recent SARS-CoV-2 positivity, patient was at home. She tested positive 4 weeks ago, did the same. 4. Chronic obstructive pulmonary disease. 5. Chronic hypoxemic respiratory failure. 6. Hypertension. 7. Morbid obesity. 8. Multiple allergies to medications. Please see the list. SHE IS ALLERGIC TO APIXABAN AND RIVAROXABAN. She has also not been tolerant to dabigatran. Plan . trial of warfarin/ lovenox bridge Patient intolerant to BiPAP discontinued Avoid increasing oxygen supplementation Continue oxygen supplementation to keep sats above 92%, on 3 liters N/C, wean as tolerated 6-minute walk prior to discharge no need for ABX at this time Bilateral lower extremity ultrasound negative for DVT COVID-19 positive 4 weeks prior PT/OT--out of bed as tolerated D/W MAGALY COOLEY MD Jun 05, 2020 10:46
[2020-06-05 11:00] VITALS: BP 105/55
--- NOTE | 2020-06-05 12:08 | PDOC ---
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 06/05/20 1208: CARDIO Progress Notes Date and Time Date of Service 06/05/19 Time of Evaluation 1200 Subjective Subjective: No Chest Pain, No Palpitations, No Dizziness, Other (breating better) Vitals Vitals Vital Signs Date Time Temp Pulse Resp B/P (MAP) Pulse Ox O2 Delivery O2 Flow Rate FiO2 06/05/20 09:30 58 126/67 06/05/20 08:53 93 Nasal Cannula 4.0 06/05/20 07:00 99.1 36 99.1 Weight Weight [ ] Input and Output Intake and Output Intake and Output 06/05/20 07:00 Intake Total 250 ml Output Total 800 ml Balance -550 ml Intake Oral 250 ml Output Urine Total 800 ml # Voids 2 # Bowel Movements 2 Physical Exam HEENT: Neck Supple W Full Motion Chest: Symmetric LUNGS: Clear to Auscultation Heart: RRR Abdomen: Soft N/T Extremities: Other (1+ bilateral LE edema ) Neurology: alert, oriented, follow commands Assessment Assessment 1. Acute on chronic respiratory failure with acute PE and underling COPD 2. Acute PE; Chest CTA with multiple pulmonary emboli. Anticoagulated with Lovenox 3. COVID + 4 weeks ago 4. Chronic diastolic CHF; appears compensated. Echo 03/19 with preserved LV systolic function 5. PAFIB; presently SR. on flecainide for rhythm maintenance. QTC 465 6. Hypertension; low end. Lisinopril, Lasix held 7. Hyperlipidemia; statin 8. PUI; COVID negative Recommendations Continue metoprolol and flecainide for rhythm/rate control Lovenox therapy, transitioning to warfarin as patient tolerates Outpatient echo Follow up in our office with Dr. Medrano as scheduled Justicifation of Admission Dx: Justifications for Admission: Justification of Admission Dx: Yes Comments: acute PE MO MEDRANO MD 06/06/20 1322: CARDIO Progress Notes Plan Plan Late entry for 06/05/19 Pt. seen and examined. 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 supportive care. YOBANI WAHL LAYLA Jun 05, 2020 12:08 MO MEDRANO MD Jun 06, 2020 13:22
--- NOTE | 2020-06-05 13:05 | NUR ---
NORBERTO following for discharge planning. Spoke with RN and reviewed chart. Pt to discharge to [facility] today pending insurance approval. Spoke with Katie and [facility] does have a bed. NORBERTO following. Addendum: 06/05/20 at 1711 by GAVIN THORNTON Insurance authorization for SNU remains pending per Katie.
[2020-06-05 15:00] VITALS: BP 125/58
[2020-06-05 19:00] VITALS: BP 105/51
[2020-06-05] MEDS: ATORVASTATIN CALCIUM 20 MG TABLET PO SCH (19:41)
[2020-06-05] MEDS: GABAPENTIN 300 MG CAPSULE. PO SCH (19:41)
[2020-06-05 23:49] VITALS: BP 118/58
[2020-06-06] MEDS: ALPRAZolam 0.5 MG TABLET PO PRN (02:34)
[2020-06-06] MEDS: ACETAMINOPHEN 325 MG TABLET. PO PRN ×2 (02:34→11:37)
[2020-06-06 03:28] VITALS: BP 132/65
[2020-06-06] MEDS: PANTOPRAZOLE 40 MG TABLET.DR. PO SCH (05:29)
[2020-06-06] MEDS: GABAPENTIN 100 MG CAPSULE. PO SCH ×2 (05:29→11:37)
[2020-06-06 07:00] VITALS: BP 150/70
--- NOTE | 2020-06-06 08:15 | PDOC ---
Provider Note Date of Service: DATE: 06/06/20 TIME: 08:13 Provider Note vss, sleeping, no tachypnea- labs ok, inr today pending, got warf 10 mg 06/05, no reaction so far , can dc lovenox when inr > 1.8 Justifications for Admission Other Justification RODRIGO GORDILLO MD Jun 06, 2020 08:14
[2020-06-06] MEDS: METOPROLOL SUCC 24HR ER 100 MG TAB.ER.24H. PO SCH (09:00)
[2020-06-06] MEDS: LACTOBACILLUS RHAMNOSUS GG 1 CAPSULE. PO SCH (09:04)
[2020-06-06] MEDS: FLECAINIDE ACETATE 50 MG TABLET. PO SCH (09:05)
[2020-06-06] MEDS: MULTIVITAMIN with MINERAL TABLET. PO SCH (09:05)
--- NOTE | 2020-06-06 09:11 | PDOC ---
PULMONARY PROGRESS NOTES DATE: 06/06/20 TIME: 09:10 Subjective Remains on nasal cannula oxygen 3 litres No shortness of breath or cough no overnight events Vitals Vital Signs Date Time Temp Pulse Resp B/P (MAP) Pulse Ox O2 Delivery O2 Flow Rate FiO2 06/06/20 09:05 54 150/70 06/06/20 07:00 97.2 21 83 Nasal Cannula 4.0 97.2 ROS: No Nausea, No Chest Pain, No Abdominal Pain, No Increase Cough General: Alert, No acute distress Lungs: Clear Cardiovascular: S1 Abdomen: Soft Extremities: No Edema Labs Laboratory Tests Test 06/04/20 11:02 Prothrombin Time 13.5 SEC (11.7-14.0) Prothromb Time International Ratio 1.1 (0.8-1.1) Medications Active Scripts Medications Dose Route/Sig Max Daily Dose Days Date Category Dose Instructions Lisinopril 2.5 Mg Tablet 1 Tab PO DAILY 06/01/20 Reported Gabapentin (Gabapentin) 300 Mg Capsule 300 Mg PO QHS 06/01/20 Reported Gabapentin (Gabapentin) 100 Mg Capsule 100 Mg PO BIDACBL 06/01/20 Reported Atorvastatin Calcium 20 Mg Tablet 1 Tab PO DAILY 06/01/20 Reported Albuterol Sulfate Conc Neb Soln (Albuterol Sulfate) 2.5 Mg/0.5 Ml Vial.neb 1 Vial NEB Q6HRS PRN 05/29/19 Rx Proair Hfa (Albuterol Sulfate) 8.5 Gm Hfa.aer.ad 2 Puff IH PRN Q4-6HRS PRN 21 05/29/19 Rx Zithromax (Azithromycin) 250 Mg Tablet 1 Pkg PO UD 05/29/19 Rx Take 2 tablets on day 1 and then 1 tablet each day for the next 4 days as directed Tessalon Perle (Benzonatate) 100 Mg Capsule 100 Mg PO TID PRN 05/29/19 Rx Prednisone 20 Mg Tablet 2 Tab PO DAILY 05/29/19 Rx Start this prescription tomorrow, Thursday05/30/19 Toprol Xl (Metoprolol Succinate) 100 Mg Tab.er.24h 100 Mg PO DAILY 04/20/19 Reported Lasix (Furosemide) 20 Mg Tablet 1 Tab PO DAILY 30 04/20/19 Reported Flecainide Acetate 100 Mg Tablet 2 Tab PO DAILY 04/20/19 Reported Lyrica (Pregabalin) 150 Mg Capsule 1 Cap PO BID 04/20/19 Reported Klor-Con 10 (Potassium Chloride) 10 Meq Tablet.er 1 Tab PO BID 01/27/18 Reported Omeprazole 40 Mg Capsule. 1 Cap PO DAILY 11/02/17 Reported Flonase Allergy Relief (Fluticasone Propionate) 9.9 Ml [place].susp 2 Sprays NS PRN DAILY PRN 06/29/17 Reported Probiotic (Lactobacillus Combo No.11) 1 Each Cap.sprink 1 Each PO DAILY 06/29/17 Reported Multiple Vitamins (Multivitamin) 1 Each Tablet 1 Each PO DAILY 06/29/17 Reported Proair Hfa Inhaler (Albuterol Sulfate) 8.5 Gm Hfa.aer.ad 1 Puff INH PRN PRN 06/29/17 Reported [tylenol arthritis] 650 Mg PO Q8HRS 04/02/17 Reported Comments CTA chest IMPRESSION: 1. Multiple filling defects identified in the bilateral distal main pulmonary arteries and the visualized lobar, segmental branches of the pulmonary arteries including the right middle lobe, right lower lobe, left upper lobe and left lower lobe pulmonary arterial branches likely multiple pulmonary emboli. 2. Patchy airspace opacities identified in the bilateral lungs including the right upper lobe, right middle lobe, left upper lobe and bibasilar lungs likely atelectasis or infiltrates or covid pneumonia. Follow-up to resolution. 3. Moderate cardiomegaly with coronary artery calcifications. 4. Mild hepatic steatosis. Impression . IMPRESSION: 1. Acute on chronic hypoxemic/hypercapnic respiratory failure. 2. Acute pulmonary embolism related to COVID-19 along with obesity and sedentary lifestyle. 3. Recent SARS-CoV-2 positivity, patient was at home. She tested positive 4 weeks ago, did the same. 4. Chronic obstructive pulmonary disease. 5. Chronic hypoxemic respiratory failure. 6. Hypertension. 7. Morbid obesity. 8. Multiple allergies to medications. Please see the list. SHE IS ALLERGIC TO APIXABAN AND RIVAROXABAN. She has also not been tolerant to dabigatran. Plan . trial of warfarin/ lovenox bridge-- monitor HGB and INR Continue oxygen supplementation to keep sats above 92%, on 3 liters N/C, wean as tolerated 6-minute walk prior to discharge no need for ABX at this time Bilateral lower extremity ultrasound negative for DVT COVID-19 positive 4 weeks prior PT/OT--out of bed as tolerated D/W MAGALY COOLEY MD Jun 06, 2020 09:11
[2020-06-06 10:39] LABS: PROTHROMBIN TIME PATIENT 13.2 SEC (11.7-14.0)
[2020-06-06 11:00] VITALS: BP 119/64
--- NOTE | 2020-06-06 11:20 | NUR ---
NORBERTO following for discharge planning. Spoke with RN and reviewed chart. Phoned and faxed updated clinicals to Jolanta at [facility]. NORBERTO awaiting insurance authorization for for discharge. NORBERTO following. Addendum: 06/06/20 at 1616 by GAVIN THORNTON Spoke with Jolanta from [facility] who is holding a bed for this patient but insurance authorization remains pending.
[2020-06-06 15:00] VITALS: BP 133/63
[2020-06-06] MEDS: WARFARIN 5 MG TABLET. PO SCH (16:14)
[2020-06-06 19:00] VITALS: BP 114/59
[2020-06-06] MEDS: ATORVASTATIN CALCIUM 20 MG TABLET PO SCH (21:53)
[2020-06-06] MEDS: GABAPENTIN 300 MG CAPSULE. PO SCH (21:53)
[2020-06-06 23:00] VITALS: BP 118/59
[2020-06-07] MEDS: ACETAMINOPHEN 325 MG TABLET. PO PRN ×2 (01:29→08:47)
[2020-06-07 03:00] VITALS: BP 132/63
[2020-06-07 07:48] VITALS: BP 146/66
[2020-06-07] MEDS: LACTOBACILLUS RHAMNOSUS GG 1 CAPSULE. PO SCH (08:06)
[2020-06-07] MEDS: GABAPENTIN 100 MG CAPSULE. PO SCH ×2 (08:08→12:54)
[2020-06-07] MEDS: FLECAINIDE ACETATE 50 MG TABLET. PO SCH (08:08)
[2020-06-07] MEDS: PANTOPRAZOLE 40 MG TABLET.DR. PO SCH (08:08)
[2020-06-07] MEDS: METOPROLOL SUCC 24HR ER 100 MG TAB.ER.24H. PO SCH (08:09)
[2020-06-07] MEDS: MULTIVITAMIN with MINERAL TABLET. PO SCH (08:09)
[2020-06-07 10:04] LABS: PROTHROMBIN TIME PATIENT 13.7 SEC (11.7-14.0)
[2020-06-07 10:40] VITALS: BP 153/89
[2020-06-07 10:43] VITALS: BP 153/89
--- NOTE | 2020-06-07 14:37 | NUR ---
SW following for discharge planning. Spoke with RN and reviewed chart. SW called [facility] ([phone]) and faxed her additional information. Authorization for SNU approved (authorization number is [id number]). Discharge orders obtained from Dr. Salcedo (copy on chart). Discharge orders phoned and faxed. Clinicals ready to be sent with pt. RN to call report. Katei from [facility] scheduled [address] transportation with 4l 02. No further SW needs at this time.
[2020-06-07 15:12] VITALS: BP 155/68
[2020-06-07] MEDS: WARFARIN 5 MG TABLET. PO SCH (15:47)
--- NOTE | 2020-06-07 16:20 | NUR ---
Nurse exchange report called to DARRYL Caicedo at [facility]. Plan of care, medications, and orders discussed. Pt awaiting transportation team
--- NOTE | 2020-06-08 08:47 | PDOC ---
Provider Note Date of Service: DATE: 06/08/20 TIME: 08:47 Provider Note [id number] Justifications for Admission Other Justification RODRIGO GORDILLO MD Jun 08, 2020 08:47
--- NOTE | 2020-06-08 10:40 | DS ---
DATE OF DISCHARGE: 06/07/2020 HOSPITAL SUMMARY: The patient came in short of breath, weak and fatigued. Chest x-ray was unremarkable, but CTA showed bilateral multiple filling defects consistent with multiple pulmonary emboli. Doppler studies of her legs were normal as were hip x-rays after a fall. CBC and chemistry studies were unremarkable as well. She was given subcutaneous Lovenox throughout the hospital stay; and after establishing that she had never taken warfarin before and not allergic to it, that was started and she had 3 doses of that drug before discharge. Her INR had not changed prior to discharge for which she was going to remain on the warfarin at intermediate until her INR was greater than 1.9, that she could stop the Lovenox and resume warfarin only. FINAL DIAGNOSIS: Bilateral pulmonary emboli. OPERATIONS, PROCEDURES, COMPLICATIONS, CONSULTATIONS: None. DISPOSITION: She will take Lovenox 90 mg subcutaneous twice a day until her INR is greater than 1.9 and then warfarin dose will be adjusted based on the INR; she will need to take the warfarin for 2-3 months as this is likely secondary to her sedentary lifestyle from recent COVID illness; the rest of her medications will remain the same, and she is going to [facility] for intermediate. RODRIGO GORDILLO MD DR: RIVKA/lucille JOB#: [id number] / [id number]
[2020-09-30] MEDS ORDERED: GABA-585 PO (23:03)
[2020-09-30] MEDS ORDERED: WARF6TAB47 PO (23:03)
[2020-09-30] MEDS ORDERED: METO-239 PO (23:04)
[2020-10-04] MEDS ORDERED: FLEC100T PO (17:45)
[2020-10-04] MEDS ORDERED: DIGO125T3 PO (17:46)
[2020-10-04] MEDS ORDERED: ACET325T21 PO (17:47)
== END 2020-06-07 16:30 | DRG 175 ==
LOC: ER 12:48 → ED HOLD 15:31 → 6 SOUTH 23:21
PROVIDERS: ADMIT Family Medicine; ATTEND Family Medicine
PROC: 5A09357 Assistance with Respiratory Ventilation, Less than 24 Consecutive Hours, Continuous Positive Airway Pressure (ICD-10-PCS; principal; 2020-06-04)
DX: I26.99 Other pulmonary embolism without acute cor pulmonale (principal); J96.21 Acute and chronic respiratory failure with hypoxia; J96.22 Acute and chronic respiratory failure with hypercapnia; I48.20 Chronic atrial fibrillation, unspecified; I50.32 Chronic diastolic (congestive) heart failure; Z68.42 Body mass index [BMI] 45.0-49.9, adult; I95.9 Hypotension, unspecified; E66.01 Morbid (severe) obesity due to excess calories; E78.00 Pure hypercholesterolemia, unspecified; E78.5 Hyperlipidemia, unspecified; I11.0 Hypertensive heart disease with heart failure; I25.10 Atherosclerotic heart disease of native coronary artery without angina pectoris; I48.0 Paroxysmal atrial fibrillation; K76.0 Fatty (change of) liver, not elsewhere classified; Z79.01 Long term (current) use of anticoagulants; Z82.49 Family history of ischemic heart disease and other diseases of the circulatory system; Z83.3 Family history of diabetes mellitus; Z86.711 Personal history of pulmonary embolism; Z86.73 Personal history of transient ischemic attack (TIA), and cerebral infarction without residual deficits; Z87.891 Personal history of nicotine dependence; Z90.710 Acquired absence of both cervix and uterus; F41.9 Anxiety disorder, unspecified; K21.9 Gastro-esophageal reflux disease without esophagitis; M19.90 Unspecified osteoarthritis, unspecified site; Z98.51 Tubal ligation status; Z88.0 Allergy status to penicillin; Z88.2 Allergy status to sulfonamides; Z88.8 Allergy status to other drugs, medicaments and biological substances; Z20.822 Contact with and (suspected) exposure to COVID-19
CPT/HCPCS: 36415; 36600; 71045; 71275; 73521; 80053; 82550; 82805; 83615; 83735; 83880; 84484; 85025; 85379; 85520; 85610; 86140; 93005; 93970; 94660; 94760; 96372; 96374; 96375; J0696; J1100; J1650; Q9967; U0003; 97110-GP; 97116-GP; 97530-GO; 97530-GP; 97535-GO; 99285-25; G0378

== ENCOUNTER → 2020-07-02 | Outpatient (CLI) | payer OTHER ==
[2020-06-07 15:12] VITALS: BP 155/68
[~2020-07-02] MED LIST changes: +ACET325T21 PO; +ATOR20TA58 PO; +DIGO125T3 PO; +GABA-585 PO; +GABA300C18 PO; +LISI2.5T PO; +METO-239 PO; +WARF6TAB47 PO
--- NOTE | 2020-07-02 16:02 | KCIC ---
EXAM: 3 Views Right Shoulder 2 views right clavicle DATE: 07/02/2020 11:25 AM INDICATION: Reason: ACUTE PAIN OF RIGHT SHOULDER / Spl. Instructions: Pt fell on arm 6 weeks ago. Rt sh pain and LROM. / History: COMPARISON: No Prior FINDINGS: There is no evidence for acute fracture or dislocation. AC joint is congruent. AC joint and glenohume ral joint degenerative change. Humeral head is not high riding. Patchy opacities right lung base like ly atelectasis resolving consolidation. Aortic calcifications are seen. IMPRESSION: 1. No acute fracture or dislocation. 2. AC joint and glenohumeral joint degenerative changes are seen. Electronically signed by: Andrea Penaloza MD (07/02/2020 4:00 PM) [id number]
== END ==
LOC: KCIC 11:18
PROVIDERS: ATTEND Family Medicine
DX: M19.011 Primary osteoarthritis, right shoulder (principal); I70.0 Atherosclerosis of aorta; W19.XXXA Unspecified fall, initial encounter; Y93.89 Activity, other specified; Y92.89 Other specified places as the place of occurrence of the external cause; Y99.8 Other external cause status
CPT/HCPCS: 73000; 73030

== ENCOUNTER → 2020-07-13 | Outpatient (CLI) | payer OTHER ==
[~2020-07-13] MED LIST changes: -ACET325T21 PO; -DIGO125T3 PO; +DRON400T PO; -DRON400T6 PO; -METO-239 PO; +OMEP40CA45 PO; -OMEP40CA7 PO; -WARF6TAB47 PO
--- NOTE | 2020-07-13 14:06 | CARD ---
MR#: [id number] Date of Study: 07/13/2020 Ordering Physician: MO KRUEGER, Referring Physician: MO KRUEGER, Tech: Shira Pavon [facility] APPROVED REPORT EXAM: Two-dimensional and M-mode echocardiogram with Doppler and color Doppler. Other Information Quality : GoodHR: 60bpm Rhythm : NSR INDICATION Dizziness and Vertigo RISK FACTORS Hypertension Hyperlipidemia Diabetes 2D DIMENSIONS RVDd3.0 (2.9-3.5cm)Left Atrium(2D)3.0 (1.6-4.0cm) IVSd1.1 (0.7-1.1cm)Aortic Root(2D)3.4 (2.0-3.7cm) LVDd4.8 (3.9-5.9cm)LVOT Diameter2.2 (1.8-2.4cm) PWd1.2 (0.7-1.1cm)LVDs3.7 (2.5-4.0cm) FS (%) 23.1 %SV49.2 ml LVEF(%)46.2 (>50%) Aortic Valve AoV Peak Demarcus.118.3cm/sAoV VTI26.9cm AO Peak GR.5.6mmHgLVOT Peak [place].89.9cm/s AO Mean GR.3mmHgAVA (VMAX)2.96cm2 Mitral Valve MV E Ffontclv00.3cm/sMV DECEL [id number] MV A Fvbmqwgr18.8cm/sE/A Ratio1.3 Pulmonary Valve PV Peak Oprfftid02.6cm/s Tricuspid Valve TR P. Qmqlklad900xf/sTR Peak Gr.24mmHg Pulmonary Vein S1 Tlgvmmgy45.3cm/sD2 Dpjyrlii38.5cm/s PVa [id number] LEFT VENTRICLE The left ventricle is normal size. There is mild concentric left ventricular hypertrophy. The left ve ntricular systolic function is normal. The ejection fraction 55%. There is normal LV segmental wall m otion. Transmitral Doppler flow pattern is Grade II-pseudonormal filling dynamics. RIGHT VENTRICLE The right ventricle is normal size. There is normal right ventricular wall thickness. Systolic functi on is lower limits of normal. ATRIA The left atrium is mildly dilated. The right atrium is mildly dilated. The interatrial septum is inta ct with no evidence for an atrial septal defect or patent foramen ovale as noted on 2-D or Doppler im aging. AORTIC VALVE The aortic valve is normal in structure and function. Doppler and Color Flow revealed no significant aortic regurgitation. There is no significant aortic valvular stenosis. MITRAL VALVE The mitral valve is normal in structure and function. There is no evidence of mitral valve prolapse. There is no mitral valve stenosis. Doppler and Color-flow revealed mild mitral regurgitation. TRICUSPID VALVE The tricuspid valve is normal in structure and function. Doppler and Color Flow revealed trace tricus pid valve regurgitation noted. Estimated PAP 27 mmHg. There is no tricuspid valve stenosis. PULMONIC VALVE The pulmonary valve is normal in structure and function. Doppler and Color Flow revealed mild to mode rate pulmonic valvular regurgitation. GREAT VESSELS The aortic root is normal in size. The ascending aorta is normal in size. The IVC is normal in size a nd collapses >50% with inspiration. PERICARDIAL EFFUSION There is no evidence of significant pericardial effusion. Critical Notification Critical Value: No <Conclusion> The left ventricular systolic function is normal. The ejection fraction 55%. There is normal LV segmental wall motion. Mild mitral regurgitation. Trace tricuspid valve regurgitation noted. Estimated PAP 27 mmHg. There is no evidence of significant pericardial effusion. Signed by : Herber Cisneros, Electronically Approved : 07/13/2020 14:06:39
== END ==
LOC: ECHO 10:53
PROVIDERS: ATTEND Internal Medicine Cardiovascular Disease
DX: I08.8 Other rheumatic multiple valve diseases (principal); I50.9 Heart failure, unspecified; R42 Dizziness and giddiness
CPT/HCPCS: 93306

== ENCOUNTER → 2020-11-01 | Outpatient (CLI) | payer OTHER ==
[2020-10-04 15:33] VITALS: BP 131/61
[~2020-11-01] MED LIST changes: +ACET325T21 PO; +DIGO125T3 PO; -DRON400T PO; +DRON400T6 PO; +METO-239 PO; -OMEP40CA45 PO; +OMEP40CA7 PO; +WARF6TAB47 PO
--- NOTE | 2020-11-01 15:10 | RAD ---
XR CHEST 2V History: Reason: CHRONIC RESPIRATORY FAILURE WITH HYPOXIA. / Spl. Instructions: / History: Comparison: October 13, 2020 Findings: Ill-defined mid and bibasilar opacities, similar compared to prior. No pleural effusion. No pneumotho rax. Unchanged heart size. Stable left-sided pacemaker. Impression: 1. Unchanged ill-defined bilateral opacities. CT can further evaluate given chronicity. Electronically signed by: Reyes Samuels DO (11/01/2020 3:08 PM) [facility]
== END ==
LOC: RAD 11:56
PROVIDERS: ATTEND Family Medicine
DX: J96.11 Chronic respiratory failure with hypoxia (principal)
CPT/HCPCS: 71046

== ENCOUNTER → 2020-11-20 | Outpatient (CLI) | payer OTHER ==
[2020-10-04 15:33] VITALS: BP 131/61
--- NOTE | 2020-11-20 16:02 | RAD ---
Noncontrast CT scan of the chest compared to chest x-ray dated October 31, 2020 for chronic abnormalities , chronic opacities, chronic respiratory failure. TECHNIQUE: Contiguous axial CT images are obtained from the thoracic inlet to the base of diaphragm. Sagittal and coronal reformations are evaluated. FINDINGS: AICD is present. There is a small pericardial effusion. Small mediastinal lymph nodes are p resent, however there is no suspicious mediastinal, hilar, or axillary lymphadenopathy. Heart is mild ly enlarged. Granulomas changes are present in the spleen. Evaluation of the upper abdominal organs i s otherwise limited by lack of IV contrast with no gross abnormalities identified. There are multilev el degenerative changes throughout the thoracic spine. No suspicious osteolytic blastic or osteolytic bone lesions are evident. Pulmonary artery is enlarged suggesting chronic pulmonary hypertension. Ex tensive multifocal coronary artery calcification are present. Mild emphysematous changes are seen at the apices. There is calcified granuloma in the right lower lung. The left lung appears relatively un derinflated compared to the right, and this results in some atelectasis involving the lingula and the left lower lobe. No definite endobronchial strictures or masses are identified. There are small vagu e patchy areas of groundglass opacity within the peripheral aspect of both upper lobes over which cou ld reflect infectious or inflammatory pneumonitis. Findings are not consistent with pulmonary edema o r neoplasm. There is no underlying fibrosis. No emphysema. In the left upper lobe there is a nodular area of pleural parenchymal scarring with retraction of the upper mediastinum, which is smaller than on the CTA dated May 31, 2020 and is likely benign chronic sequelae of the patient's known prior infectious or inflammatory insult. IMPRESSION: 1. Vague subtle small areas of ground glass opacification in the periphery of the upper lobes which m ay reflect infectious or inflammatory pneumonitis. Hypersensitivity and/or drug-related changes can h ave a similar appearance as can RB ILD. 2. More extensive but still subtle groundglass changes in the lingula and left lower lobe are also no stacia, however these lung regions are noted be underinflated relative to the right lung, and groundglas s changes in these areas may be due to or augmented by atelectasis. 3. Small pericardial effusion. 4. Pulmonary artery hypertension. 5. Extensive coronary artery calcifications. PQRS Compliance Statement: One or more of the following individualized dose reduction techniques were utilized for this examinat ion: 1. Automated exposure control 2. Adjustment of the mA and/or kV according to patient size 3. Use of iterative reconstruction technique Electronically signed by: Shawn Coburn MD (11/20/2020 4:00 PM) [id number]
== END ==
LOC: CT 12:14
PROVIDERS: ATTEND Family Medicine
DX: J43.9 Emphysema, unspecified (principal); I27.21 Secondary pulmonary arterial hypertension; J84.10 Pulmonary fibrosis, unspecified; J98.4 Other disorders of lung; R93.89 Abnormal findings on diagnostic imaging of other specified body structures; J96.11 Chronic respiratory failure with hypoxia; I31.3 Pericardial effusion (noninflammatory); I25.10 Atherosclerotic heart disease of native coronary artery without angina pectoris
CPT/HCPCS: 71250

== ENCOUNTER → 2020-12-25 | Outpatient (CLI) | payer OTHER ==
[2020-10-04 15:33] VITALS: BP 131/61
[~2020-12-25] MED LIST changes: -LISI2.5T PO; +LISI2.5T12 PO
--- NOTE | 2020-12-25 12:37 | RAD ---
XR CHEST 2V History: Reason: HX OF PE. RESIDUAL SHORTNESS OF BREATH. / Spl. Instructions: / History: Comparison: November 01, 2020 Findings: Decreased ill-defined opacities seen previously. No pleural effusion. No pneumothorax. Normal heart s ize. Left-sided pacemaker, unchanged. Impression: 1. Decreased bibasilar ill-defined opacities. No new consolidation. Electronically signed by: Reyes Samuels DO (12/25/2020 12:35 PM) [id number]
--- NOTE | 2020-12-25 12:38 | RAD ---
NM LUNG PERFUSION SCAN History:Reason: HX OF PE SOA *HAS BEEN COVID 19 VACCINATED* / Spl. Instructions: / History: Comparison: Chest x-ray December 25, 2020 Findings: Ventilation perfusion examination was performed. Ventilation images were acquired after the patient inhaled 22 mCi of . Perfusion images were acquired after the patient was injected wi th 5.2 mCi of technetium 99m MAA. Normal ventilation images. No mismatched perfusion defect is identified. Impression: 1. Low probability for pulmonary embolic disease. Electronically signed by: Reyes Samuels DO (12/25/2020 12:36 PM) [id number]
== END ==
LOC: NM 10:27
PROVIDERS: ATTEND Internal Medicine Pulmonary Disease
DX: R06.02 Shortness of breath (principal); Z86.711 Personal history of pulmonary embolism
CPT/HCPCS: 71046; 78582; A9540; A9558; 96374

== ENCOUNTER → 2020-12-27 | Outpatient (CLI) | payer OTHER ==
[2020-10-04 15:33] VITALS: BP 131/61
--- NOTE | 2020-12-31 14:07 | OP ---
DATE OF SURGERY: 12/27/2020 ATTENDING PHYSICIAN: Lester Byrnes MD The patient underwent full pulmonary function testing on 12/27. The FEV1 to FVC ratio was 84% of predicted. FVC was 94% of predicted, 1.57 liters. FVC was 82% of predicted, 1.86 liters. Total lung capacity was preserved, was slightly elevated. Diffusion capacity was preserved. IMPRESSION: 1. No evidence of significant airflow obstruction or restrictive lung disease. 2. The patient underwent 6-minute walk requiring oxygen supplementation at 2 liters per nasal cannula with exertion. YAN/YUDY/CHUCK DR: Jenny TID: [id number]
== END ==
LOC: PF 10:12
PROVIDERS: ATTEND Internal Medicine Pulmonary Disease
DX: R06.02 Shortness of breath (principal)
CPT/HCPCS: 94010; 94618; 94726; 94729

== ENCOUNTER → 2021-01-02 | Outpatient (CLI) | payer OTHER ==
[2020-10-04 15:33] VITALS: BP 131/61
--- NOTE | 2021-01-03 09:57 | SLEEP ---
DATE OF STUDY: 01/02/2021 SLEEP STUDY ATTENDING PHYSICIAN: Chester Hawley MD REFERRING PHYSICIAN: Jamar Rowan MD The patient is 75 years old who weighs 219 pounds with BMI of 43. The patient's Leoma score is 16. The patient underwent sleep study at [facility]. During the night study, the patient spent 500 minutes in bed and slept for 361 minutes with a sleep efficiency of 72%. Sleep latency was 20 minutes with an absent REM sleep. Sleep architecture showed increased stage 1 and stage 2 sleep, absent slow wave and absent REM sleep. During the night of the study, the patient had 158 obstructive apneas, 131 mixed apneas, 27 central apneas and 197 hypopneas. The patient's AHI was 85 per hour. Supine AHI 76 per hour. REM sleep was not observed. EKG monitoring revealed an average heart rate of 78 beats per minute. No sustained arrhythmias observed. Nocturnal oximetry study revealed an average oxygen saturation of 92% with a lowest of 58%. A 25% of time oxygen saturation remained between 80 and 89%. A 72% of time between 70 and 79%. PLMS were seen at an index of 321 per hour and 5 per hour caused EEG arousals. The patient met the criteria for CPAP initiation; however, she refused CPAP as well as BiPAP. The patient would benefit from desensitization. IMPRESSION: 1. Severe obstructive sleep apnea at an apnea-hypopnea index of 85 per hour. 2. Severe nocturnal hypoxia secondary to obstructive sleep apnea. 3. Severe PLMS. RECOMMENDATIONS: 1. The patient needs to be desensitized to CPAP/BiPAP. Once able to tolerate CPAP, then she should return for positive airway therapy treatment. 2. Weight loss was strongly advised. 3. Avoid JUNIOR PROJECT COORDINATOR depressants. 4. Cautioned regarding driving until symptoms of sleep apnea resolve with above recommendation. 5. The patient should also be further evaluated for symptoms of restless legs during the day. ADELIA/ELIANE/MEREDITH DR: Irwin TID: [id number] CC: CHESTER HAWLEY MD, JAMAR ROWAN MD
== END ==
LOC: SLPLAB 18:52
PROVIDERS: ATTEND Internal Medicine Pulmonary Disease
DX: G47.33 Obstructive sleep apnea (adult) (pediatric) (principal)
CPT/HCPCS: 95810; 95811

== ENCOUNTER → 2021-02-01 | Outpatient (CLI) | payer OTHER ==
[2020-10-04 15:33] VITALS: BP 131/61
[2021-02-01 14:16] LABS: BASO # 0.1 x10^3/uL (0.0-0.2); BASO % 1 % (0-3); EOS # 0.2 x10^3/uL (0.0-0.7); EOS % 3 % (0-3); HEMATOCRIT 40.8 % (36.0-47.0); HEMOGLOBIN 13.9 g/dL (12.0-15.5); LYMPH # 2.5 x10^3/uL (1.0-4.8); LYMPH % 43 % (24-48); MEAN CORPUSCULAR HEMOGLOBIN 31 pg (25-35); MEAN CORPUSCULAR HGB CONC 34 g/dL (31-37); MEAN CORPUSCULAR VOLUME 92 fL (79-100); MONO # 0.7 x10^3/uL (0.0-1.1); MONO % 12 % (0-9); NEUT # 2.4 x10^3/uL (1.8-7.7); NEUT % 41 % (31-73); PLATELET COUNT 203 x10^3/uL (140-400); RED BLOOD COUNT 4.45 x10^6/uL (3.50-5.40); RED CELL DISTRIBUTION WIDTH 14.7 % (11.5-14.5); WHITE BLOOD COUNT 5.9 x10^3/uL (4.0-11.0)
[2021-02-01 14:37] LABS: ALBUMIN 3.3 g/dL (3.4-5.0); ALBUMIN/GLOBULIN RATIO 0.9 (1.0-1.7); ALK PHOS 113 U/L (46-116); ALT (SGPT) 38 U/L (14-59); ANION GAP 1 (6-14); AST (SGOT) 12 U/L (15-37); BLOOD UREA NITROGEN 36 mg/dL (7-20); BUN/CREATININE RATIO 24 (6-20); CALCIUM 9.2 mg/dL (8.5-10.1); CARBON DIOXIDE 36 mmol/L (21-32); CHLORIDE 96 mmol/L (98-107); CREATININE 1.5 mg/dL (0.6-1.0); DIG 0.8 ng/mL (0.9-2.0); GFR 33.7; GLUCOSE 409 mg/dL (70-99); POTASSIUM 5.2 mmol/L (3.5-5.1); SODIUM 133 mmol/L (136-145); TOTAL BILIRUBIN 0.5 mg/dL (0.2-1.0)
--- NOTE | 2021-02-01 15:53 | CARD ---
MR#: [id number] Date of Study: 02/01/2021 Ordering Physician: MO KRUEGER, Referring Physician: MO KRUEGER, Tech: Shira Pavon [facility] APPROVED REPORT EXAM: Two-dimensional and M-mode echocardiogram with Doppler and color Doppler. Other Information Quality : Technically LimitedHR: 67bpm Rhythm : NSR INDICATION Dyspnea RISK FACTORS Hypertension Obesity 2D DIMENSIONS Left Atrium(2D)2.8 (1.6-4.0cm)IVSd1.0 (0.7-1.1cm) Aortic Root(2D)3.4 (2.0-3.7cm)LVDd4.3 (3.9-5.9cm) LVOT Diameter2.2 (1.8-2.4cm)PWd1.0 (0.7-1.1cm) IVSs1.3 (0.8-1.2cm)LVDs3.5 (2.5-4.0cm) FS (%) 17.5 %PWs1.5 (0.8-1.2cm) SV29.9 mlLVEF(%)36.7 (>50%) Aortic Valve AoV Peak Demarcus.138.1cm/sAoV VTI24.3cm AO Peak GR.7.6mmHgLVOT Peak Demarcus.100.7cm/s LVOT VTI 19.40cmAO Mean GR.4mmHg SLADE (VMAX)2.32qt9QGS (VTI)3.14cm2 Mitral Valve MV E Wvtycpza12.4cm/sMV DECEL AKYP704ud MV A Tialvteb35.3cm/sMV QUD50oc E/A Ratio0.7MVA (PHT)2.81cm2 TDI E/Medial E'13.5 Pulmonary Valve PV Peak Ciiivzjh929.7cm/sPV Peak Grad.4mmHg Tricuspid Valve TR P. Ethyswyd154so/sTR Peak Gr.20mmHg LEFT VENTRICLE The left ventricle is normal size. There is normal left ventricular wall thickness. The left ventricu lar systolic function is normal. Estimated ejection fraction 55%. There is normal LV segmental wall motion. Transmitral Doppler flow pattern is Grade I-abnormal relaxation pattern. RIGHT VENTRICLE The right ventricle is normal size. There is normal right ventricular wall thickness. The right ventr icular systolic function is normal. ATRIA The left atrium size is normal. The right atrium size is normal. The interatrial septum is intact wit h no evidence for an atrial septal defect or patent foramen ovale as noted on 2-D or Doppler imaging. AORTIC VALVE The aortic valve is normal in structure and function. Doppler and Color Flow revealed no significant aortic regurgitation. There is no significant aortic valvular stenosis. MITRAL VALVE The mitral valve is normal in structure and function. There is no evidence of mitral valve prolapse. There is no mitral valve stenosis. Doppler and Color Flow revealed no mitral valve regurgitation note d. TRICUSPID VALVE The tricuspid valve is normal in structure and function. Doppler and Color Flow revealed trace tricus pid regurgitation. There is no tricuspid valve stenosis. PULMONIC VALVE The pulmonary valve is normal in structure and function. Doppler and Color Flow revealed no pulmonic valvular regurgitation. GREAT VESSELS The aortic root is normal in size. The ascending aorta is normal in size. The IVC is normal in size a nd collapses >50% with inspiration. PERICARDIAL EFFUSION There is no evidence of significant pericardial effusion. Critical Notification Critical Value: No <Conclusion> The left ventricular systolic function is normal. Estimated ejection fraction 55%. There is normal LV segmental wall motion. Transmitral Doppler flow pattern is Grade I-abnormal relaxation pattern. Trace tricuspid regurgitation. There is no evidence of significant pericardial effusion. Signed by : Herber Cisneros, Electronically Approved : 02/01/2021 15:53:09
== END ==
LOC: ECHO 13:55
PROVIDERS: ATTEND Internal Medicine Cardiovascular Disease
DX: I31.9 Disease of pericardium, unspecified (principal)
CPT/HCPCS: 36415; 80053; 80162; 83880; 85025; 93306

== ENCOUNTER → 2021-02-22 | Outpatient (CLI) | payer OTHER ==
[2021-02-22 14:48] VITALS: BP 101/57
[2021-02-22 14:53] VITALS: BP 104/44
[2021-02-22 14:58] VITALS: BP 99/40
[2021-02-22 15:03] VITALS: BP 96/44
[2021-02-22 15:08] VITALS: BP 101/41
--- NOTE | 2021-02-22 15:30 | NUR ---
Patient's pacemaker was adjusted by Lana with [employer] prior to study. Patient stated she took something for anxiety prior to coming to hospital for MRI. Patient's vital signs were stable throughout as noted in vitals spreadsheet. After study was completed pacemaker insurance sales representative returned patient's pacemaker to original settings and patient was wheeled out to Radiology waiting room to meet her .
--- NOTE | 2021-02-22 15:50 | RAD ---
EXAM: Lumbar spine MRI without contrast. HISTORY: Spinal stenosis. TECHNIQUE: Multiplanar, multisequence magnetic resonance imaging of the lumbar spine was performed wi thout contrast. COMPARISON: 02/28/2019. FINDINGS: There is lumbar scoliosis. There is 5 mm grade 1 anterolisthesis of L4 and L5, 3 mm retroli sthesis of L5 on S1, 3 mm retrolisthesis of L1 on L2 and 2 mm retrolisthesis of L2 on L3. There is de generative endplate remodeling with disc space narrowing and osteophytosis primarily along the left a spect of L1-L2 and bilaterally at L5-S1. This corresponds with the levels of maximum scoliotic concav ity. There are a few benign osseous hemangiomas. There is no suspicious osseous lesion. There is no a cute or subacute fracture. The conus terminates at L1. There are few small endplate Schmorl's nodes. At L1-L2, there is a left lateral recess to lateral disc protrusion superimposed on a left lateral pr edominant disc bulge and endplate osteophytosis. There is mild retrolisthesis. There is moderate left foraminal stenosis. There is mild central canal stenosis and narrowing of the left lateral recess. At L2-L3, there is a disc bulge with minimal superior posterior central extrusion superimposed on end plate remodeling. There is mild left greater than right facet arthropathy. There is minimal retrolist hesis. There is fbik-ao-iraetbat left foraminal stenosis. There is minimal central canal stenosis. At L3-L4, there is a left foraminal to extra foraminal disc protrusion superimposed on a left lateral predominant disc bulge and endplate remodeling. There is moderate left facet arthropathy and fluid w ithin the left facet joint. There is moderate to severe left foraminal stenosis. There is minimal matt tral canal stenosis. At L4-L5, there is a left lateral recess to extra foraminal disc protrusion and 3 mm superior extrusi on with annular tear superimposed on a disc bulge and endplate remodeling. There is severe bilateral facet arthropathy. There is hypertrophy of the ligamentum flavum. There is grade 1 anterolisthesis. T here is mild right and moderate to severe left foraminal stenosis. There is severe central canal sten osis. At L5-S1, there is a disc bulge and endplate osteophytosis. There is moderate right and mild left fac et arthropathy. There is mild retrolisthesis. There is moderate to severe right and mild left foramin al stenosis. IMPRESSION: 1. Multilevel degenerative change involving the lumbar spine, described in detail above. This is matty lar at all levels compared to the prior exam. The central canal stenosis is most significant at L4-L5 . The right foraminal stenosis is most significant at L5-S1 and a left foraminal stenosis is most sig nificant at L3-L4 and L4-L5. 2. Lumbar scoliosis and multilevel listhesis, described above. Electronically signed by: Pema Marquez MD (02/22/2021 3:47 PM) [facility]
== END ==
LOC: MRI 13:14
PROVIDERS: ATTEND Family Medicine
DX: M47.817 Spondylosis without myelopathy or radiculopathy, lumbosacral region (principal); M51.27 Other intervertebral disc displacement, lumbosacral region; M48.07 Spinal stenosis, lumbosacral region; M41.86 Other forms of scoliosis, lumbar region; M43.17 Spondylolisthesis, lumbosacral region; M51.46 Schmorl's nodes, lumbar region; D18.09 Hemangioma of other sites
CPT/HCPCS: 72148

== ENCOUNTER → 2021-02-26 | Outpatient (CLI) | payer OTHER ==
[2021-02-22 15:08] VITALS: BP 101/41
--- NOTE | 2021-02-27 22:16 | SLEEP ---
DATE OF STUDY: 02/26/2021 SLEEP STUDY ATTENDING PHYSICIAN: Dr. Rashid. REFERRING PHYSICIAN: Dr. Jamar Rowan. The patient is a 75-year-old who weighs 217 pounds with a BMI of 44. The patient had a previous sleep study at [facility] and was found to have severe SONIA at an AHI of 85 per hour. The patient also had nocturnal hypoxia and severe PLMS. The patient was intolerant to CPAP. Recommendations were made to desensitize the patient with CPAP and return for CPAP titration. The patient returned on 02/26/2021. During the night of study, the patient spent 490 minutes in bed and slept for 280 minutes with a sleep efficiency of 57%. Sleep latency was 19 minutes with a REM latency of 128 minutes. Sleep architecture showed increased stage 1 and stage 2 sleep, normal slow wave and reduced REM sleep. EKG monitoring revealed a mean heart rate of 67 beats per minute. No sustained arrhythmias observed. PLMS were seen at index of 159 per hour, but none caused EEG arousals. The patient was started on CPAP at 5 cm water and titrated up to 11 cm water. At the final pressure, the patient slept for 38 minutes. The patient had lateral non-REM sleep. The patient's AHI was reduced to 10 per hour, but was mostly due to oral leak throughout the night resulting in few central apneas. The patient's oxygen saturation remained in the mid to high 80s with a lowest of 82% at this pressure. The patient would benefit from 2 liters of oxygen. Further titration beyond 11 cm water resulted in increased central apneas. IMPRESSION: 1. Severe obstructive sleep apnea diagnosed by previous sleep study. 2. Nocturnal hypoxia secondary to combination of SONIA and suspected hypoventilation. 3. Severe PLMS without any significant EEG arousals. RECOMMENDATIONS: 1. CPAP at 11 cm water along with 2 liters of supplemental oxygen should be used on a nightly basis. 2. Follow up in 4-6 weeks to assess compliance with CPAP and to document clinical improvement. 3. Weight loss is strongly advised. 4. Avoid VICE SQUAD POLICE OFFICER depressants. 5. Cautioned regarding driving until symptoms of sleep apnea resolve with the use of CPAP. 6. The patient has severe PLMS without any EEG arousals. The patient can be further evaluated for symptoms of restless legs during the day. ADELIA/LAURA/MEREDITH DR: ADELIA/nts TID: [id number] CC: JAMAR ROWAN MD
== END ==
LOC: RT 19:12
PROVIDERS: ATTEND Internal Medicine Pulmonary Disease
DX: G47.33 Obstructive sleep apnea (adult) (pediatric) (principal); G47.61 Periodic limb movement disorder
CPT/HCPCS: 95811

== ENCOUNTER → 2021-03-15 | Outpatient (CLI) | payer OTHER ==
[~2021-03-15] MED LIST changes: +MULT-245 PO
[2021-03-15 14:00] VITALS: BP 140/106
[2021-03-15 14:10] VITALS: BP 113/83
[2021-03-15 14:20] VITALS: BP 122/70
[2021-03-15 14:30] VITALS: BP 125/77
--- NOTE | 2021-03-15 14:59 | NUR ---
Monster with [employer] was present to adjust patient's pacemaker for study. Patient's vital signs were stable throughout procedure and Monster returned pacemaker to original settings prior to patient leaving Radiology. No problems noted.
--- NOTE | 2021-03-15 16:27 | RAD ---
Examination: MRI of the right shoulder without contrast HISTORY: History of right shoulder pain COMPARISON: None. TECHNIQUE: Multiplanar, multisequence MR imaging of the right shoulder performed without contrast FINDINGS: The attachment of the subscapularis tendon, supraspinatus, infraspinatus tendon grossly appears intac t. Moderate increased signal identified in the supraspinatus, infraspinatus tendon likely tendinosis. The muscle bulk grossly appears unremarkable. Examination is very limited due to patient body habitus which causes low tsjfem-gf-qjoog ratio. Small shoulder joint effusion identified. The visualized labrum grossly appears unremarkable. The muscle bulk grossly appears unremarkable. There is mild obscuration of fat in the rotator interva l. The acromion is type II. Moderate joint space loss identified at acromioclavicular joint, glenohum eral joint. IMPRESSION: 1. Moderate increased signal identified in the supraspinatus, infraspinatus tendon likely tendinosis . 2. Mild obscuration of fat in the rotator interval. Correlate for adhesive capsulitis. 3. Moderate degenerative changes glenohumeral joint, acromioclavicular joint. Electronically signed by: Del Frias MD (03/15/2021 4:24 PM) [id number]
== END ==
LOC: MRI 13:19
PROVIDERS: ATTEND Family Medicine
DX: M19.011 Primary osteoarthritis, right shoulder (principal); M25.411 Effusion, right shoulder; M75.01 Adhesive capsulitis of right shoulder
CPT/HCPCS: 73221

== ENCOUNTER → 2021-03-21 | Outpatient (CLI) | payer OTHER ==
[2021-03-15 14:30] VITALS: BP 125/77
--- NOTE | 2021-03-21 15:39 | PDOC1 ---
INITIAL PAIN CONSULT DATE OF SERVICE: DOS: DATE: 03/21/21 TIME: 15:31 CHIEF COMPLAINT: Chief Complaint: Low back and left lower extremity pain HISTORY OF PRESENT ILLNESS: 75-year-old female presents with history of pain low back and left lower extremity for approximately 1 year. Patient reports no specific injury or accident that she is aware of is getting worse with time and weightbearing patient reports that she was bedridden and developed clots in her legs about a year ago and she is been on Coumadin for this ever since. Patient reports the pain now is across the low back and the left lower extremity posterior gluteus posterior lateral thigh lateral anterior thigh anteromedial thigh medial lower leg into the ankle patient reports is constant sharp stabbing throbbing in the back shooting in the leg aching with radiating pain that is intermittent intensity worse with walking standing changing positions better with sitting or laying down but wakes her from sleep at least 5 times a night patient reports it does affect her bowel bladder control but no loss of continence just increased frequency patient reports it does affect her ability to walk significant using a walker as well as wheelchair when she came find 1 and is using a wheelchair today. Patient reports she has had epidural injections in the past physical therapy and exercise she is currently doing the exercise and physical therapy routines but is not decreasing the pain significant although they do help patient reports is taking Tylenol and gabapentin both of which do decrease the pain but only by about 30 to 40% patient rates her disability rating 0-10 10 being the worst is a 6 with family home responsibilities 5 with recreation occupation for social activity 06 behavior 7 with self-care and life support activities. Patient did have an MRI scan of the lumbar spine dated February 22, 2021 showing multilevel degenerative change with most significant change L4- 5 with left lateral recess extraforaminal disc protrusion 3 mm superior extrusion with annular tear superimposed on disc bulge and endplate remodeling with severe bilateral facet arthropathy mild to moderate right and moderate to severe left foraminal stenosis with severe central canal stenosis. PAST MEDICAL HISTORY: PMH: Hypertension, COPD, hearing loss, dizziness, atrial fibrillation, previous TIAs PREVIOUS SURGERIES: Past Surgical Hx: Hysterectomy, cataract extractions CURRENT MEDICATIONS: Current Meds: Active Scripts Medications Dose Route/Sig Max Daily Dose Days Date Category Multi Vitamin Daily (Multivitamin) 1 Each Tablet 1 Tab PO DAILY 30 03/21/21 Reported Digoxin 125 Mcg Tablet 125 Mcg PO DAILY 10/04/20 Reported Metoprolol Succinate ( Xl ) (Metoprolol Succinate) 25 Mg Tab.er.24h 2 Tab PO DAILY 09/30/20 Reported Warfarin Sodium 6 Mg Tablet 6 Mg PO DAILY 09/30/20 Reported Gabapentin (Gabapentin) 100 Mg Capsule 200 Mg PO DAILY 09/30/20 Reported Gabapentin (Gabapentin) 300 Mg Capsule 300 Mg PO QHS 06/01/20 Reported Lasix (Furosemide) 20 Mg Tablet 2 Tab PO DAILY 30 04/20/19 Reported ALLERGIES; Allergies: Coded Allergies: Anesthetics - Amide Type - Select A (Verified Allergy, Intermediate, broke out with hives - (all Juan Carlos), 06/30/17) Anesthetics - Reny Type- Parabens (Verified Allergy, Intermediate, 06/30/17) Penicillins (Verified Allergy, Intermediate, RASH, 06/30/17) Sulfa (Sulfonamide Antibiotics) (Verified Allergy, Intermediate, RASH, 06/30/17) apixaban (Verified Allergy, Intermediate, POSSIBLE RASH (MAY ALSO BE FROM DRONEDARONE), 04/21/19) dabigatran etexilate (Verified Allergy, Intermediate, Rash, 06/30/17) welts dronedarone (Verified Allergy, Intermediate, POSSIBLE RASH (MAY ALSO BE FROM ELIQUIS), 06/30/17) rivaroxaban (Verified Allergy, Intermediate, 06/30/17) FAMILY HISTORY: Family Hx: Hypertension, cancers, renal disease SOCIAL HISTORY: Social Hx: Patient not edu alcohol does not smoke says any illegal illicit recreational drugs is lives with her spouse has her and daughter living at home with her is currently retired. REVIEW OF SYSTEMS: ROS: Positive for those items mentioned in history of present illness, all systems are reviewed, otherwise negative ,and are complete full and well-documented on patient's chart. PHYSICAL EXAM: VS: Blood pressure is 150/69 pulse 70 respirations 18 temperature is 90.9 F height is 5 foot weight is 215 pounds PE: PHYSICAL EXAMINATION: GENERAL: The patient is awake, alert, oriented, appropriate, very pleasant in demeanor, patient Kumpe by her . HEENT: Shows normocephalic, atraumatic. Extraocular movements are intact and symmetrical. Oral cavity: Mucous membranes moist and pink. NECK: Shows anterior throat supple without palpable lymphadenopathy noted. Swa llow reflex symmetrical. CHEST: Shows normal on inspection. Breath sounds are clear bilaterally, distant but no rales rhonchi or wheezes auscultated. HEART: Shows S1, S2 clear. No murmurs auscultated. ABDOMEN: Soft, nontender, nondistended, obese. No palpable organomegaly is noted. No rebound or guarding demonstrated. BACK: Shows spine grossly in the midline. Normal-appearing cervical lordotic curvature. There is slightly increased thoracic kyphosis, some minor flattening of the lumbar lordotic curvature. Lumbar paraspinous muscles show symmetrical on inspection, on palpation shows some moderate tenderness diffusely throughout the upper, middle and lower distribution of the paraspinous muscles bilaterally and also into the lower thoracic paraspinous musculature, firm and tender, but without specific trigger points, without radiation of pain. The patient has good rotational motion of the lumbar spine, both laterally as well as extension and flexion without significant difficulty. No tenderness over the spinous processes, sacrum or sacroiliac regions. EXTREMITIES: Lower extremities show deep tendon reflexes 1 in the patellar and tendo calcaneus tendons. Motor exam is 5 on a scale of 5 with right dorsiflexion, extension, quadriceps and hamstring flexion and 4/5 on the left. Peripheral pulses are 1+ posterior tibial. 3+ peripheral edema is noted bilaterally from the ankle to two thirds distance to the tibia on the anterior aspect. Lower extremities are warm and dry to touch, equal in color and appearance. Straight leg raise noted to be positive on the left at approximately 35 degrees decreased with knee flexion, right side is negative. Gaenslen's and Logan's maneuvers are negative bilaterally. The patient is able to stand but has difficulty standing from a seated position uses the arms of the chair she is unstable on her feet and does have a antalgic gait which is somewhat widened but appears to favor the left lower extremity with ambulation. SKIN: Shows warm and dry, good turgor. No edema. No sores, rashes or bruising throughout. IMPRESSION: Impression: 75-year-old female with approximate 1 year history increasing low back pain left lower extremity pain in a radicular fashion following a L4-5 dermatomal distribution. MRI scan lumbar spine as noted Hypertension Atrial fibrillation COPD Plan: Options were discussed with the patient including conservative medical management continued physical therapies interventional techniques. Patient would like to pursue interventional techniques that she is doing physical therapy is currently in exercises as well as oral analgesics without significant reduction in pain. Patient having a clinical radiculopathy at L4-5 level on the left side we discussed a lumbar epidural steroid injections description as well as anatomical models to describe the procedure. Patient will wait for preauthorization with insurance provider, once this is obtained, will plan on translaminar approach L4-5 level lumbar epidural steroid injection with fluor oscopic guidance. In the meantime, patient will continue with stretching strength exercises daily activity as tolerated. TRACE JONES MD Mar 21, 2021 15:39
== END | disposition home or self-care (01) ==
LOC: PNCL 13:10
PROVIDERS: ATTEND Anesthesiology
DX: M54.59 Other low back pain (principal); M79.605 Pain in left leg; I10 Essential (primary) hypertension; J44.9 Chronic obstructive pulmonary disease, unspecified; I48.91 Unspecified atrial fibrillation; E78.00 Pure hypercholesterolemia, unspecified; G47.30 Sleep apnea, unspecified; E66.9 Obesity, unspecified; K21.9 Gastro-esophageal reflux disease without esophagitis; M19.90 Unspecified osteoarthritis, unspecified site; F41.9 Anxiety disorder, unspecified; Z86.73 Personal history of transient ischemic attack (TIA), and cerebral infarction without residual deficits; Z90.710 Acquired absence of both cervix and uterus; Z98.890 Other specified postprocedural states; Z79.899 Other long term (current) drug therapy; Z87.891 Personal history of nicotine dependence; Z72.89 Other problems related to lifestyle; Z88.0 Allergy status to penicillin; Z88.1 Allergy status to other antibiotic agents; Z88.2 Allergy status to sulfonamides; Z88.8 Allergy status to other drugs, medicaments and biological substances; Z80.0 Family history of malignant neoplasm of digestive organs
CPT/HCPCS: G0463

== ENCOUNTER → 2021-03-25 | Outpatient (CLI) | payer OTHER ==
[2021-03-15 14:30] VITALS: BP 125/77
[~2021-03-25] MED LIST changes: -LEVO500T8 PO; +LEVO500T9 PO
--- NOTE | 2021-03-26 09:54 | RAD ---
Bilateral digital screening mammogram to include digital breast tomosynthesis (3-D mammography) 03/25 CLINICAL HISTORY: Screening study. Digital MLO and CC mammograms of both breasts were obtained. Additionally digital breast tomosynthesi s images (3-D mammography) of both breasts in the CC and MLO projections were obtained. Comparison study is dated 12/16/2017. The breast parenchyma is composed of scattered fibroglandular densities which can obscure a lesion on mammography (breast density B). Benign-appearing and vascular calcifications are seen within both br easts. No spiculated mass is seen. No malignant appearing calcification or area of architectural dist ortion is noted. Digital breast tomosynthesis images demonstrate no spiculated mass. No malignant appearing calcificat ion is seen. Impression: BI-RADS Category 1: Negative. There is no mammographic evidence of malignancy. Routine y early screening mammography is recommended for follow-up. This examination was reviewed with the aid of computer-aided detection. A mammogram does not have 100% sensitivity and therefore a negative imaging study should not delay fu rther work up of a suspicious abnormality. Patient information is entered into the reminder system with a target due date for the next screening mammogram of 03/25/2021. "Our facility is accredited by the [employer] Mammography Program." Electronically signed by: Geronimo Antony MD (03/26/2021 9:51 AM) [id number]
== END ==
LOC: MAMMO 13:34
PROVIDERS: ATTEND Family Medicine
DX: Z12.31 Encounter for screening mammogram for malignant neoplasm of breast (principal)
CPT/HCPCS: 77063; 77067

== ENCOUNTER → 2021-04-18 | Outpatient (CLI) | payer OTHER ==
[2021-03-15 14:30] VITALS: BP 125/77
[~2021-04-18] MED LIST changes: +IOHEXOL 180 MG/ML 10 ML VIAL. ONE; +methylPREDNISolone ACETATE 40 MG/ML VIAL. ONE; +methylPREDNISolone ACETATE 80 MG/ML VIAL. ONE
--- NOTE | 2021-04-18 10:52 | PDOC ---
Progress Note - Pain Clinic Date of Service: DOS: DATE: 04/18/21 TIME: 10:49 Diagnosis: Dx: Lumbar radiculopathy with lumbar degenerative disease and lumbar spinal stenosis History or Present Illness: HPI: 75-year-old female returns for follow-up status post previous lumbar epidural steroid injections in 2018 patient did very well about 75% improvement with the pain returning now in the low back and left lower extremity posterior gluteus posterior lateral thigh lateral anterior thigh anteromedial thigh medial lower leg as well but mostly in the back and hip patient report is aching shooting radiating on and off intensity worse with walking standing changing positions better with sitting or laying down but does awaken her from sleep at night frequently. Patient reports is a 7 on scale 10 is worse over the past week 5 on average for its least and is a 5 today. Patient reports no bowel or bladder in continence but significant fatigability of the left leg but no motor loss completely. Patient is using a wheelchair today as it is more comfortable for her post ambulation. Patient's MRI showing moderate disc base bulging generalized is bulging L4-5 as well as L5-S1 resulting in moderate to severe central spinal canal stenosis at both levels as well. Physical Exam: VS: Blood pressure is 150/53 pulse 65 respirations 18 temperature 98.6 F height is 4 foot 11 inches, weight is 203 pounds. PE: PHYSICAL EXAMINATION: GENERAL: The patient is awake, alert, oriented, appropriate, very pleasant in demeanor HEENT: Shows normocephalic, atraumatic. Extraocular movements are intact and symmetrical. Oral cavity: Mucous membranes moist and pink. NECK: Shows anterior throat supple without palpable lymphadenopathy noted. Swallow reflex symmetrical. CHEST: Shows normal on inspection. Breath sounds are clear bilaterally. HEART: Shows S1, S2 clear. No murmurs auscultated. ABDOMEN: Soft, nontender, nondistended. No palpable organomegaly is noted. No rebound or guarding demonstrated. BACK: Shows spine grossly in the midline. Normal-appearing cervical lordotic curvature. There is increased thoracic kyphosis, some flattening of the lumbar lordotic curvature. Lumbar paraspinous muscles show symmetrical on inspection, on palpation shows some moderate tenderness diffusely throughout the upper, middle and lower distribution of the paraspinous muscles without specific tr igger points, without radiation of pain. The patient has good rotational motion of the lumbar spine, both laterally as well as extension and flexion without significant difficulty. EXTREMITIES: Lower extremities show deep tendon reflexes 1+ in the patellar and tendo calcaneus tendons. Motor exam is 5 on a scale of 5 with right dorsiflexion, extension, quadriceps and hamstring flexion and 4/5 on the left. Peripheral pulses are 1+ posterior tibial. No peripheral edema is noted bilaterally. Lower extremities are warm and dry to touch, equal in color and appearance. SKIN: Shows warm and dry, good turgor. No edema. No sores, rashes or bruising throughout. Procedure: Procedure: Options discussed with the patient. Patient chart reviews her current medication regimen updated current review of systems updated today as well. We will proceed with a lumbar epidural steroid injection today with fluoroscopic guidance. Risks were discussed including but not limited to: Bleeding, infection, possibility of epidural hematoma and subsequent neurological compromise, dural puncture, headaches, spinal cord and/or nerve damage, side effects of steroid medication, and poor results regarding pain control. Patient understands and wished to proceed. Patient will return to the clinic in approximately 2 weeks for follow-up, was counseled for appointment, activity level, and side effect to be aware of. Medication Injected: Med Injected: Procedure is lumbar epidural steroid injection under local anesthetic using sterile prep and drape at the L4-5 level using C-arm fluoroscopic guidance in both AP and lateral views medications injected is 120 mg Depo-Medrol +10mL preservative-free normal saline and 2 mL contrast- condition at discharge is stable patient tolerated procedure well had no complications. Condition at Discharge: Condition at Discharge: Initial discharge stable, patient tolerated procedure well and had no complications. TRACE JONES MD Apr 18, 2021 10:52
--- NOTE | 2021-04-18 10:53 | PDOC4 ---
Procedure Note: ICD 10 Code: ICD 10 Code: M54.16 M48.06 M51.36 Procedure Note: Patient was consented for lumbar epidural steroid injection with fluoroscopic guidance. Risks were discussed including but not limited to: Bleeding, infection, possibility of epidural hematoma and subsequent neurological compromise, dural puncture, headaches, spinal cord and/or nerve damage, side effects of steroid medication, and poor results regarding pain control. Patient understands and wished to proceed. Procedure is lumbar epidural steroid injection under local anesthetic using ster ile prep and drape at the L4-5 level using C-arm fluoroscopic guidance in both AP and lateral views medications injected is 120 mg Depo-Medrol +10mL preservative-free normal saline and 2 mL contrast- condition at discharge is stable patient tolerated procedure well had no complications. TRACE JONES MD Apr 18, 2021 10:53
== END | disposition home or self-care (01) ==
LOC: PNCL 09:55
PROVIDERS: ATTEND Anesthesiology
DX: M51.16 Intervertebral disc disorders with radiculopathy, lumbar region (principal); M48.061 Spinal stenosis, lumbar region without neurogenic claudication; I10 Essential (primary) hypertension; I48.91 Unspecified atrial fibrillation; E78.00 Pure hypercholesterolemia, unspecified; E66.9 Obesity, unspecified; K21.9 Gastro-esophageal reflux disease without esophagitis; M19.90 Unspecified osteoarthritis, unspecified site; J44.9 Chronic obstructive pulmonary disease, unspecified; F41.9 Anxiety disorder, unspecified; Z98.51 Tubal ligation status; Z90.710 Acquired absence of both cervix and uterus; Z98.890 Other specified postprocedural states; Z86.73 Personal history of transient ischemic attack (TIA), and cerebral infarction without residual deficits; Z79.899 Other long term (current) drug therapy; Z87.891 Personal history of nicotine dependence; Z80.0 Family history of malignant neoplasm of digestive organs; Z88.0 Allergy status to penicillin; Z88.1 Allergy status to other antibiotic agents; Z88.2 Allergy status to sulfonamides; Z88.8 Allergy status to other drugs, medicaments and biological substances
CPT/HCPCS: 62323; J1030; J1040; Q9965

== ENCOUNTER → 2021-09-06 | Outpatient (CLI) | payer MEDICARE ==
[2021-03-15 14:30] VITALS: BP 125/77
[~2021-09-06] MED LIST changes: -IOHEXOL 180 MG/ML 10 ML VIAL. ONE; -methylPREDNISolone ACETATE 40 MG/ML VIAL. ONE; -methylPREDNISolone ACETATE 80 MG/ML VIAL. ONE
--- NOTE | 2021-09-06 16:30 | RAD ---
EXAMINATION: XR SHOULDER_LEFT 2+ VIEWS CLINICAL HISTORY: Left shoulder pain. History of multiple falls. TECHNIQUE: XR SHOULDER_LEFT 2+ VIEWS Number of Images/Views: 3 COMPARISON: None FINDINGS: Glenohumeral joint alignment maintained. Mild hypertrophic acromioclavicular degenerative changes. No acute fracture. Acromiohumeral interval maintained. Partially visualized left-sided cardiac pacemake r. IMPRESSION: No acute osseous abnormality. Electronically signed by: Ravindra Hanna DO (09/06/2021 4:28 PM) [id number]
--- NOTE | 2021-09-06 16:33 | RAD ---
EXAMINATION: XR FOOT_RIGHT 3 VIEWS CLINICAL HISTORY: Right foot pain. History of multiple falls. TECHNIQUE: XR FOOT_RIGHT 3 VIEWS Number of Images/Views: 3 COMPARISON: None FINDINGS: Joint spaces and alignment maintained. No acute fracture. Small plantar calcaneal enthesophyte. Soft tissue prominence along the dorsal forefoot. IMPRESSION: No acute osseous abnormality. Electronically signed by: Ravindra Hanna DO (09/06/2021 4:30 PM) [id number]
== END ==
LOC: RAD 12:32
PROVIDERS: ATTEND Family Medicine
DX: M19.012 Primary osteoarthritis, left shoulder (principal); M77.31 Calcaneal spur, right foot; Z95.0 Presence of cardiac pacemaker
CPT/HCPCS: 73030; 73630